=== PATIENT | female | born 1940 | race Caucasian/White ===

== ENCOUNTER → 2020-03-10 06:18 | Outpatient (CLI) | payer MEDICARE, OTHER, SELFPAY ==
[2020-02-15 09:51] VITALS: BMI 25.2
--- NOTE | 2020-03-10 12:13 | STRESSREP ---
Stress Test Report Pharmacologic myocardial perfusion stress test. 80-year-old lady with a history of chest pain. Stress protocol: Resting EKG demonstrates normal sinus rhythm with a rate of 77 bpm normal intervals are noted resting blood pressure is 138/62 mmHg. 0.4 mg of regadenoson was infused per usual protocol the maximum heart rate attained was 90 bpm which was 65% of maximum predicted heart rate the maximum workload was 1 metabolic equivalent. At rest there were no ST or T wave changes noted suggest ischemia at peak infusion nonspecific ST-T wave changes were noted. No clinical angina was noted. Myocardial perfusion protocol. 12.0 mCi of technetium 99m sestamibi was injected at rest. 0.4 mg of regadenoson was infused per usual protocol. At peak infusion 36.0 mCi of technetium 99m sestamibi was injected stress images were obtained stress and rest images were reconstructed and compared in the short axis vertical long horizontal long axis. Gated images were also obtained Perfusion SPECT analysis: Review of the stress images demonstrate normal uptake of tracer noted in all areas of the myocardium the resting images similar demonstrate normal uptake of tracer noted in all areas of the myocardium. No reversibility is noted suggest ischemia no previous infarct is noted. Gated SPECT analysis: The gated ejection fraction is 89%. Conclusion: Normal pharmacologic myocardial perfusion stress test. Preserved ejection fraction.
== END ==
PROVIDERS: PCP Family Medicine; Referring Provider Family Medicine; Visit Provider Family Medicine
DX: R06.00 Dyspnea, unspecified (principal)
CPT/HCPCS: 78452; 93017; A9500; A4216; J2785

== ENCOUNTER → 2020-05-25 08:52 | Outpatient (CLI) | payer MEDICARE, OTHER, SELFPAY ==
[2020-03-25 10:08] VITALS: BMI 21.5
--- NOTE | 2020-05-25 13:15 | PFT ---
INTRODUCTION: The patient is an 80-year-old female that presents for pulmonary function studies secondary to a diagnosis of dyspnea. Respiratory therapy reports good patient effort. Bronchodilators were used during testing. INTERPRETATION: Forced expiration spirometry demonstrates the presence of a severe large airways obstructive ventilatory defect. There was a significant response to aerosolized bronchodilators noted, based upon change in FVC. Spirograms are of fair quality and do not plateau indicating slow emptying of the lungs. Body plethysmography was performed and reveals lung volumes to be within normal limits. Diffusing capacity by single breath CO is reduced to 73% of predicted. IMPRESSION: Partially reversible severe large airways obstructive ventilatory defect with preserved lung volumes and mild reduction in diffusing capacity.
== END ==
PROVIDERS: PCP Family Medicine; Referring Provider Internal Medicine Critical Care Medicine; Visit Provider Internal Medicine Critical Care Medicine
DX: R06.00 Dyspnea, unspecified (principal)
CPT/HCPCS: 94060; 94726; 94729

== ENCOUNTER → 2020-05-27 10:23 | Outpatient (CLI) | payer MEDICARE, OTHER, SELFPAY ==
[2020-03-25 10:08] VITALS: BMI 21.5
[2020-05-27 11:14] VITALS: PULSE 65; PULSE 70; PULSE 77; PULSE 79; PULSE 81; PULSE 82; PULSE 86; PULSE 88; O2SAT 87; O2SAT 89; O2SAT 90; O2SAT 91; O2SAT 92; O2SAT 93
--- NOTE | 2020-05-27 11:19 | CPS ---
Patient walked the entire test on room air with no breaks. SpO2 87% at the end of testing. Spoke to patient about keeping SpO2>89-90% and the use of supplemental oxygen to keep SpO2>89%. She refused oxygen and stated that she will not wear it and does not want it.
--- NOTE | 2020-05-29 10:24 | PCM.PSN.6M ---
PSN 6 Minute Walk Test - 6 Minute Walk Test 6 Minute Walk Test: 6 Minute Walk Test PSN:6-Minute Walk Test Start: 05/27/20 10:49 Freq: Status: Active Protocol: [id number] Document 05/27/20 11:14 LENYJORGE (Rec: 05/27/20 11:22 SHANNAN [id number]) 6 Minute Walk Test Date Performed 05/27/20 Time Performed 10:30 Height 5 ft 2 in Weight: 115 lb Weight in Pounds 115.[address]: Alex Albrecht Assistive device used: None Pre-test Oxygen Delivery Method Room Air Pulse Ox (%) 92 Pulse Rate (60-100 beats/min) 65 Dyspnea Roque Scale (0-10) 0.5 Exertion Roque Scale (6-20) 6 1st minute Oxygen Delivery Method Room Air Pulse Ox (%) 93 Pulse Rate (60-100 beats/min) 77 2nd minute Oxygen Delivery Method Room Air Pulse Ox (%) 91 Pulse Rate (60-100 beats/min) 79 3rd minute Oxygen Delivery Method Room Air Pulse Ox (%) 90 Pulse Rate (60-100 beats/min) 81 4th minute Oxygen Delivery Method Room Air Pulse Ox (%) 89 Pulse Rate (60-100 beats/min) 82 5th minute Oxygen Delivery Method Room Air Pulse Ox (%) 89 Pulse Rate (60-100 beats/min) 86 6th minute Oxygen Delivery Method Room Air Pulse Ox (%) 87 Pulse Rate (60-100 beats/min) 88 Dyspnea Roque Scale (0-10) 0.5 Exertion Roque Scale (6-20) 12 Post-test Oxygen Delivery Method Room Air Pulse Ox (%) 92 Pulse Rate (60-100 beats/min) 70 Full Laps Walked 13 Partial Lap, Number of Tiles Walked 15 Total Distance Walked (ft) 782 05/27/20 11:19 Cardiopulmonary Services by Ernestina Nunes Patient walked the entire test on room air with no breaks. SpO2 87% at the end of testing. Spoke to patient about keeping SpO2>89-90% and the use of supplemental oxygen to keep SpO2>89%. She refused oxygen and stated that she will not wear it and does not want it. Initialized on 05/27/20 11:19 - END OF NOTE - Interpretation Interpretation: The patient ambulated 782 feet over the course of 6 minutes beginning on room air without assistive devices or breaks. Pretesting oxygen saturation was noted to be 92% on room air. With ambulation, the omar oxygen saturation was 87% at minute 6 of testing. However, the patient refused to allow the respiratory therapist to place her on supplemental oxygen. - Recommendations Recommendations: 2 L/min of supplemental oxygen should be utilized with exertion. However, the patient refused to allow the respiratory therapist to place any form of oxygen on her.
== END ==
PROVIDERS: PCP Family Medicine; Referring Provider Internal Medicine Critical Care Medicine; Visit Provider Internal Medicine Critical Care Medicine
DX: R06.00 Dyspnea, unspecified (principal)
CPT/HCPCS: 94618

== ENCOUNTER 2020-10-23 09:58 | Outpatient (RCR) | payer MEDICARE, OTHER, SELFPAY ==
[2020-07-28 07:41] VITALS: BMI 21.5
== END 2020-10-23 23:59 ==
LOC: IMMUN 09:58
PROVIDERS: PCP Family Medicine; Visit Provider Family Medicine
DX: Z23 Encounter for immunization (principal)
CPT/HCPCS: 0011A; 0012A; 91301

== ENCOUNTER 2021-03-14 09:01 | Inpatient (IN) | payer MEDICARE, OTHER, SELFPAY ==
[2020-11-23 12:49] VITALS: BMI 22.4
[2021-03-14] VITALS (11 sets, daily range): BP systolic 145–182; BP diastolic 62–72; PULSE 70–87; RESP 16–26; TEMP 36.8–37.1; O2SAT 91–99; BMI 21.5; BMI 21.0
--- NOTE | 2021-03-14 09:21 | CT_ITS ---
STUDY: CT ABDOMEN AND PELVIS WITH CONTRAST REASON FOR EXAM: Female, 81 years old. Localized peritonitis left side RADIATION DOSAGE (If Supplied By Facility): CTDIvol = ( 8.20 ) mGy, DLP = ( 283.90 ) mGycm TECHNIQUE: Transaxial images were obtained from the dome of the diaphragm to the symphysis pubis without oral contrast. IV 75mL Isovue-370 was administered. Sagittal and coronal images were reconstructed. Individualized dose optimization techniques were used for this CT. COMPARISON: None. FINDINGS: The visualized lung bases are unremarkable. The visualized portions of the heart are within normal limits. Normal liver. Normal gallbladder and extrahepatic biliary system. There is moderate splenomegaly. There is a 5 cm triangular area of decreased attenuation and enhancement within the inferior aspect of the spleen with some surrounding fluid fluid suggestive of a splenic infarct. Normal pancreas. Normal bilateral adrenal glands. Normal right kidney. Normal left kidney. Normal visualized stomach. Normal small intestine. Normal colon. There is non-visualization of the appendix. There is diffuse atherosclerotic calcification of the abdominal aorta, without a demonstrated aneurysm. Normal inferior vena cava. Normal retroperitoneum. Normal urinary bladder. Normal abdominal wall. Normal osseous structures. 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 Electronically Signed: Trent Vallejo MD at 11:47 EDT Tel , Service support ,
[2021-03-14] MEDS: 0.9% Normal Saline 1,000 ML 1000 ML IV (09:38)
[2021-03-14] MEDS: Morphine 4 MG/ML Syringe IV ×2 (09:38→17:53)
[2021-03-14] MEDS: Ondansetron 4 MG/2 ML Vial IV (09:38)
[2021-03-14 09:47] LABS: Absolute Lymphocyte Count 0.89 X10^3/uL (0.83-4.51); Absolute Neutrophil Count 8.9 X10^3/uL (2.0-7.7); Basophil# 0.06 X10^3/uL; Basophil% 0.5 % (0-1); Eosinophil# 0.01 X10^3/uL; Eosinophils% 0.1 % (0-5); Hematocrit 40.3 % (37-47); Hemoglobin 13.1 g/dL (12.0-15.0); Lymphocyte # 0.89 X10^3/ul (0.83-4.51); Mean Corp Hgb Conc 32.5 g/dL (32-36); Mean Corpuscular Hgb 28.9 pg (27.0-32.0); Mean Corpuscular Volume 88.8 fL (81-99); Mean Platelet Vol. 10.3 fl (6.2-12.0); Monocyte# 1.13 X10^3/uL; Monocyte% 10.2 % (0-10); NRBC Flagged by Analyzer 0 % (0-5); Neutrophil # 8.94 X10^3/uL (2.7-7.7); Neutrophil % 80.5 % (47-70); Platelet Count 147 K/mm3 (150-450); RBC Distribution Width CV 15.2 % (11.6-14.6); RBC Distribution Width SD 49.6 fl (35.1-43.9); Red Blood Count 4.54 M/mm3 (4.2-5.4); White Blood Count 11.1 K/mm3 (4.4-11.0)
[2021-03-14 10:07] LABS: ALB/GLOB Ratio 0.9 RATIO (0.9-2.4); AST(SGOT) 49 U/L (15-37); Alanine Aminotransfer ALT/SGPT 18 U/L (13-56); Albumin, Serum 3.4 g/dL (3.2-5.0); Alkaline Phosphatase 119 U/L (45-117); Anion Gap 9 (5-15); BUN 12 mg/dL (7-18); BUN/Creat Ratio 13.7 RATIO (10-20); Chloride 99 mmol/L (98-107); Creatinine, Serum 0.88 mg/dL (0.55-1.02); EST Glomerular Filtration Rate 66 mL/min (>60); Est Glom Filt Rate - Afr Amer 79 mL/min (>60); Estimated Creatinine Clearance 38.31 ml/min; Globulin 3.9 g/dL (2.2-4.2); Glucose 98 mg/dL (74-106); Lipase 55 U/L (73-393); Potassium 3.3 mmol/L (3.5-5.1); Protein, Total 7.3 g/dL (6.4-8.2); Sodium Level 137 mmol/L (136-145)
--- NOTE | 2021-03-14 10:28 | EDS_ITS ---
HPI HPI - GI History of Present Illness Chief Complaint: Abd Pain Informant: patient and family Abdominal Pain/Flank Pain Onset: Days (Onset Monday) Context: Sudden Onset Timing: Continuous Quality: Aching and Sharp Location: LUQ and LLQ Current Severity: Mild Maximum Severity: Severe Worsened by: Movement and - (Breathing, movement, walking) Relieved by: Nothing Nausea/Vomiting/Emesis GI Symptom: Positive for Nausea; Negative for Vomiting Onset: Yesterday Diarrhea/Melena/Hematochezia GI Symptom: Positive for Diarrhea (5 soft stools since midnight); Negative for Melena and Hematochezia Onset: Yesterday Stool Quality: Negative for Loose, Watery, Mucous, Black and Maroon Associated Symptoms Associated Symptoms: Positive for Dysuria and Frequency; Negative for Hematuria Narrative Narrative: Patient is an elderly woman who initially presented with left-sided chest pain. Patient has left-sided abdominal pain. She denies documented fever. She denies chills or night sweats. She does report nausea and several bowel movements. She did not note blood or mucus in the bowel movement. She has not been on antibiotics recently. There is no mucus in the stool. She has had no ill contacts. She denies history of diverticulitis. She does report urinary symptoms. She denies bright red blood per rectum. She denies prior symptoms. She denies headache, visual, ocular auditory symptoms. She denies cardiac respiratory symptoms. She denies history of VTE. She has no risk factors. She denies leg pain, swelling discoloration. Prior similar symptoms: No Recent Illness/Hospitalization: No [facility] Medical History (Updated 03/14/21 @ 14:[address] Polo Monroe MD) Arthritis Asthma Cancer Chronic neck and back pain Difficulty balancing Fatigue Hypertension Limb weakness Shortness of breath Thyroid disease Home Medications trazodone 50 mg PO QHS 11/04/15 [History Last Taken 11/03/15] amlodipine 5 mg tablet tab PO 02/15/20 [History Last Taken Unknown] furosemide 20 mg tablet PO 02/15/20 [History Last Taken Unknown] levothyroxine 50 mcg tablet tab PO 02/15/20 [History Last Taken Unknown] tizanidine 2 mg tablet 2 mg PO QHS PRN #14 tab 02/15/20 [Rx Last Taken Unknown] albuterol sulfate 90 mcg/actuation aerosol inhaler 1 - 2 puff INHALATION Q6H PRN #8.5 g 11/24/20 [Rx Last Taken Unknown] fluticasone 232 mcg-salmeterol 14 mcg/actuation breath activated powdr 1 inh INHALATION BID #1 ea 11/24/20 [Rx Last Taken Unknown] Allergy/AdvReac Type Severity Reaction Status Date / Time ibuprofen Allergy Mild rash Verified 03/14/21 09:03 lisinopril [From Prinivil] Allergy Mild cough/scrathy Verified 03/14/21 09:03 throat losartan [From Cozaar] Allergy Mild cough/scratchy Verified 03/14/21 09:03 throat moxifloxacin [From Avelox] Allergy Mild GI Upset Verified 03/14/21 09:03 Family History Mother Diabetes Father Myocardial infarction Surgical History No pertinent past surgical history Social History (Updated 03/14/21 @ 10:[address] Polo Monroe MD) household members: none Smoking Status: Never smoker alcohol intake: never substance use type: does not use ROS ROS ED Constitutional Constitutional ED: Denies chills, fever(s), subjective, sweats or weight loss ENT ENT ED: Denies ear pain, rhinorrhea or sore throat Cardiovascular Cardiovascular: Reports chest pain; Denies orthopnea, palpitations, paroxysmal nocturnal dyspnea or racing heartbeat Respiratory/Chest Respiratory/Chest: Denies cough, dyspnea, dyspnea on exertion, orthopnea or paroxysmal nocturnal dyspnea Gastrointestinal Gastrointestinal: Reports abdominal pain and nausea; Denies constipation, diarrhea, melena or vomiting Genitourinary Genitourinary ED: Reports dysuria, hematuria and urinary frequency Musculoskeletal Musculoskeletal: Denies arthralgias, back pain, myalgias or neck pain Integumentary Denies abscess or rash Neurologic Neurologic: Denies paresthesias or weakness Endocrine Endocrinology: Denies polydipsia, polyphagia or polyuria Hematologic/Lymphatic Hematologic/Lymphatic: Denies easy bleeding or easy bruising EXAM Physical Exam Const Vital Signs: 03/14/21 09:03 03/14/21 11:57 03/14/21 13:29 Temperature 98.2 F Temperature Source Temporal Pulse Rate 87 86 Respiratory Rate 19 H 16 Blood Pressure 145/70 H 157/71 H 171/71 H Blood Pressure Mean 95 99 104 Pulse Ox 91 97 Oxygen Delivery Method Room Air Nasal Cannula Oxygen Flow Rate (L/min) 3 Positive well nourished and well developed General Appearance ED: well developed; Negative for pallor HEENT Reports dry mucous membranes HEENT Narrative: Near patent. Posterior pharynx unremarkable. Mucosa is dry. normocephalic and atraumatic Mouth ED: Yes dry mucous membranes Mouth: dry mucous membranes Eyes PERRL and EOMs intact bilaterally General Eye ED: Negative for pale conjunctiva or scleral icterus Neck no lymphadenopathy, supple and no JVD Resp normal respiratory effort and clear to auscultation bilaterally Cardio regular rate, regular rhythm, S1 normal heart sound, S2 normal heart sound and no murmurs Rhythm: abnormal rhythm GI no masses; Negative for non-tender or non-distended GI Narrative: Patient has significant tenderness on the left side with rebound tenderness left lower quadrant. Inspection: abdominal distention Auscultation: hypoactive bowel sounds; Negative for normoactive bowel sounds or hyperactive bowel sounds Palpation: soft, tender, guarding and rebound tenderness present; Negative for hepatomegaly, splenomegaly, mass or pulsatile mass Back/Spine no CVA tenderness Lumbar Spine / Lower Back: Negative for lumbar spinal tenderness Extremity full ROM General Extremety ED: Negative for edema or tenderness General Extremity: Negative for edema Neuro CN's II-XII intact bilaterally and moves all extremities Sensorium / Orientation: alert and oriented to person Psych mental status grossly normal Skin no wounds General Skin Exam: Negative for jaundice or pallor Lesions: no lesions Rashes: no rashes MDM MDM MDM Narrative Medical decision making narrative: With significant left-sided abdominal pain need to evaluate for diverticulitis, perforation with abscess due to diverticulitis, pancreatitis atypical presentation for pyelonephritis. Appropriate blood work was ordered. CT of the abdomen with IV contrast was ordered. Patient was medicated with Zofran and morphine. Patient was informed of her results at 1200. She was informed because of her low oxygen level a CAT scan of her chest to evaluate for pulmonary embolus was ordered. Plan is to start on heparin for anticoagulation. She will need a work-up to determine if she has embolic phenomenon i.e. echo of her heart. CTA of the chest reveals an apical infiltrate. There is no evidence of pneumothorax or effusion. There is no evidence of pulmonary embolus per my read. Awaiting formal read by radiologist, 1323. Radiology agree there is no is a pulmonary embolus. There is abnormality right upper lobe which may represent infiltrate. Will treat with antibiotics. Blood cultures were not obtained since she does not have severe sepsis/organ dysfunction. Lab Data Attestation: I reviewed the patient's lab results. Lab results narrative: White count is slightly elevated and nondiagnostic. Comprehensive metabolic panel is unremarkable. CT of the abdomen pelvis IV contrast was reviewed by me and reveals splenomegaly with a significant infarct. Review of prior records indicates no history of paroxysmal atrial fibrillation. Will await formal read by radiologist, 10/02/2004 Labs: Laboratory Results - last 24 hr 03/14/21 03/14/21 03/14/21 09:30 09:30 09:30 WBC 11.1 H RBC 4.54 Hgb 13.1 Hct 40.3 MCV 88.8 MCH 28.9 MCHC 32.5 RDW Std Deviation 49.6 H RDW Coeff of Yaneli 15.2 H Plt Count 147 L MPV 10.3 Immature Gran % (Auto) 0.700 Neut % (Auto) 80.5 H Lymph % (Auto) 8.0 L [place] % (Auto) 10.2 H Eos % (Auto) 0.1 Baso % (Auto) 0.5 Absolute Neuts (auto) 8.9 H Absolute Lymphs (auto) 0.89 Nucleated RBC % 0 PT INR APTT Sodium 137 Potassium 3.3 L Chloride 99 Carbon Dioxide 29.0 Anion Gap 9 BUN 12 Creatinine 0.88 Estim Creat Clear Calc 38.31 Est GFR (MDRD) Af Amer 79 Est GFR (MDRD) Non-Af 66 BUN/Creatinine Ratio 13.7 Glucose 98 Lactic Acid 1.6 Calcium 9.0 Total Bilirubin 0.90 AST 49 H ALT 18 Alkaline Phosphatase 119 H Total Protein 7.3 Albumin 3.4 Globulin 3.9 Albumin/Globulin Ratio 0.9 Lipase 55 L 03/14/21 12:09 WBC RBC Hgb Hct MCV MCH MCHC RDW Std Deviation RDW Coeff of Yaneli Plt Count MPV Immature Gran % (Auto) Neut % (Auto) Lymph % (Auto) [place] % (Auto) Eos % (Auto) Baso % (Auto) Absolute Neuts (auto) Absolute Lymphs (auto) Nucleated RBC % PT 15.2 H INR 1.3 APTT 38.8 H Sodium Potassium Chloride Carbon Dioxide Anion Gap BUN Creatinine Estim Creat Clear Calc Est GFR (MDRD) Af Amer Est GFR (MDRD) Non-Af BUN/Creatinine Ratio Glucose Lactic Acid Calcium Total Bilirubin AST ALT Alkaline Phosphatase Total Protein Albumin Globulin Albumin/Globulin Ratio Lipase ABG Data ABG results: ABG 03/14/21 12:18 Specimen Type ART Sample Site L Radial pH 7.36 Bicarbonate Actual 27.5 H Total CO2 29 Base Excess 2 O2 Saturation 98 ABG pCO2 48.3 H ABG pO2 105 H Keagan Test Positive O2 Delivery Device Cannula Liter Flow 3.0 Radiography Diagnostic Testing: Radiology Impression Abdomen/Pelvis CT 03/14/21 09:21 IMPRESSION: 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 Electronically Signed: Trent Vallejo MD at 11:47 EDT Tel , Service support , Chest CTA 03/14/21 11:56 IMPRESSION: 1. No evidence of pulmonary embolus. 2. Soft tissue in the right apex which may represent scar however developing pneumonia cannot be excluded. There is a small left-sided effusion also present. Individualized dose optimization techniques were used for this CT. at 1423 Reported and signed by: Rhett Grijalva MD Electronically Signed: Rhett Grijalva MD at 14:22 EDT Tel , Service support , Critical Care Time Critical Care Time: Yes Critical care time (excluding procedures): 30-74 minutes (37 minutes), Including time spent: (History, physical examination, documentation, review of prior records, independent review of images and initiation of therapy), Discussing w/Patient &/or Family/[employer] Manager and Discussing w/Consultants Discharge Plan Dx/Rx/DC Orders Clinical Impression: Right upper lobe pulmonary infiltrate, Infarction of spleen, Hypoxia Disposition Disposition: Acute Care [facility]
[2021-03-14 11:17] LABS: Lactic Acid 1.6 mmol/L (0.4-1.9)
--- NOTE | 2021-03-14 11:56 | CT_ITS ---
EXAM: CT ANGIOGRAPHY CHEST WITHOUT AND WITH INTRAVENOUS CONTRAST : 1940 CLINICAL INDICATION: PE suspected TECHNIQUE: Helically acquired angiography images were obtained of the chest without and with intravenous contrast. This CT exam was performed using one or more of the following dose reduction techniques: automated exposure control, adjustment of the mA and/or kV according to patient size, and/or use of iterative reconstruction technique. This report was created using [employer] report generation technology. MIP reconstructed images were created and reviewed. CONTRAST: IV 75mL Isovue-370 COMPARISON: None. FINDINGS: PULMONARY ARTERIES: Unremarkable. Normal in caliber. No evidence of pulmonary embolism. AORTA: Unremarkable. Normal in caliber. No evidence of dissection. GREAT VESSELS OF AORTIC ARCH: Unremarkable. Normal in caliber. No evidence of dissection. LUNGS AND PLEURAL SPACES: There is soft tissue the right apex is and pleural scar however developing pneumonia cannot be excluded. There is a small left-sided effusion with minimal left basilar atelectasis. No mass. HEART: Unremarkable. Heart size is normal. No pericardial effusion. No signs of right heart strain. MEDIASTINUM: Unremarkable. No mediastinal or hilar adenopathy. Esophagus is unremarkable. No hiatal hernia. THYROID: Unremarkable. No thyroid lesions. BONES/JOINTS: Unremarkable. No suspicious lytic or blastic abnormality. CT/CTA Chest W/WO Contrast IMPRESSION: 1. No evidence of pulmonary embolus. 2. Soft tissue in the right apex which may represent scar however developing pneumonia cannot be excluded. There is a small left-sided effusion also present. Individualized dose optimization techniques were used for this CT. at 1423 Reported and signed by: Rhett Grijalva MD Electronically Signed: Rhett Grijalva MD at 14:22 EDT Tel , Service support ,
--- NOTE | 2021-03-14 11:57 | ED.RN ---
pt sats 84% on ra with good wave form. nail st helenian removedplaced on 3l o2. pt reports sharp pain under left breast dr zamorano aware. new orders placed
[2021-03-14 12:26] LABS: Allen Test Positive; Base Excess 2 mmol/L (-2 to +2); Bicarbonate 27.5 mmol/L (22-26); Blood Gas Specimen Type ART; O2 Delivery Device Cannula; PO2 105 mmHG (75-100); SITE L Radial; SO2 98 % (95-99); Total Carbon Dioxide 29 mmol/L; pCO2 48.3 mmHg (35-45); pH 7.36 (7.35-7.45)
[2021-03-14] MEDS: Heparin Injection (Vial) 5,000 UNIT/ML VIAL 4000 UNIT IV (12:37)
[2021-03-14] MEDS: HEPARIN/D5w 25,000 UNITS 25,000 UNITS/250 ML IV.SOLN. 8 UNITS IV (12:41)
[2021-03-14 12:43] LABS: International Normalized Ratio 1.3; Prothrombin Time (Protime)PT. 15.2 SECONDS (11.7-14.9)
[2021-03-14 12:45] LABS: Partial Thromboplast Time 38.8 Seconds (24.1-36.2)
--- NOTE | 2021-03-14 17:16 | PCM.HP.STD ---
HPI - General General Date of Admission: 03/14/21 HPI Narrative BARBER WEBB, is a 81 F who presented to the emergency department [facility] on 03/14/2021 complaining of left upper quadrant pain that started on Monday. She denied any other associated symptoms. She had has no sick contacts. She has a cough but this is chronic and is nonproductive. She is fully vaccinated for COVID-19. She reports that the pain has been worsening since Monday and that is why she presented to the emergency department. She was sent by the emergency room physician for CT of her abdomen pelvis with contrast and developed acute hypoxia with an oxygen saturation of 91% on room air and therefore a CTA of her chest was performed. Upon review of her SPO 2 from previous admissions her oxygen saturations do run on the low side and are noted to be intermittently in the low 90s on room air. Upon questioning the patient she has been told in the past that she should wear oxygen at home but has deferred as she feels like her inhalers have helped her. She follows with Dr. Albrecht as an outpatient for pulmonary services. She is also had lymphoma and has a chronic right upper lobe infiltrate/mass/scarring. This was biopsied twice in the past and she was found to have recurrent lymphoma and was reinitiated on Rituxan from [id number]. She follows with Dr. Ferrera in the outpatient setting for her lymphoma. The CTA of her chest was unremarkable for PE but did again demonstrate a right upper lobe abnormality. The CTA of her abdomen showed no vascular abnormalities but did show a 5 cm splenic infarct. I suspect this is what has been causing her pain. She was treated in the emergency department for pneumonia with ceftriaxone and azithromycin given the right upper lobe abnormality, but has no other symptoms and therefore will defer further treatment for pneumonia at this point. Her CBC was overall unremarkable other than some mild thrombocytopenia and leukocytosis with a white count of 11.1. I suspect this is a stress reaction. An ABG was performed and showed no significant abnormalities and her PO2 was 105 on 3 L nasal cannula. Her CMP showed mild hypokalemia with a potassium of 3.3 but was otherwise fairly unremarkable. She was admitted and monitored on telemetry given her splenic infarct to rule out cardiac arrhythmia such as atrial fibrillation as a cause for her splenic infarct and will perform an echocardiogram. 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 Radiation adverse effect Shortness of breath Thyroid disease Home Medications trazodone 50 mg PO QHS 11/04/15 [History Last Taken 11/03/15] amlodipine 5 mg tablet 5 tab PO DAILY 02/15/20 [History Last Taken 03/14/21] furosemide 20 mg tablet PO DAILY 02/15/20 [History Last Taken 03/13/21] levothyroxine 50 mcg tablet 50 mcg PO DAILY 02/15/20 [History Last Taken 03/14/21] tizanidine 2 mg tablet 2 mg PO QHS PRN #14 tab 02/15/20 [Rx Last Taken Unknown] fluticasone propion-salmeterol [AirDuo RespiClick] 1 inh INHALATION BID 03/14/21 [History Last Taken 03/14/21] Allergy/AdvReac Type Severity Reaction Status Date / Time ibuprofen Allergy Mild rash Verified 03/14/21 09:03 lisinopril [From Prinivil] Allergy Mild cough/scrathy Verified 03/14/21 09:03 throat losartan [From Cozaar] Allergy Mild cough/scratchy Verified 03/14/21 09:03 throat moxifloxacin [From Avelox] Allergy Mild GI Upset Verified 03/14/21 09:03 Family History Mother Diabetes Father Myocardial infarction Surgical History No pertinent past surgical history Social History household members: none Smoking Status: Never smoker alcohol intake: never substance use type: does not use ROS Review of Systems ROS Unobtainable: Denies due to encephalopathy, due to endotracheal tube, due to mental condition, due to mental status or other Constitutional Constitutional: Denies anorexia, change in weight, chills, fatigue, fever(s), malaise, night sweats, weakness or other Eyes Eyes: Denies blurry vision, change in eye color, change in vision, discharge from eye(s), double vision, erythema, eye pain, loss of vision or other ENT HEENT: Denies abnormal hearing, dysphagia, ear pain, epistaxis, headache(s), hearing loss, nasal congestion, nasal discharge, post nasal drip, sinus pressure, sore throat or other Cardiovascular Cardiovascular: Denies chest pain, claudication, dyspnea on exertion, edema, lightheadedness, orthopnea, palpitations, paroxysmal nocturnal dyspnea, rapid heart rate, syncope or other Respiratory/Chest Respiratory/Chest: Reports cough and other Details: Cough is chronic and unchanged ; Denies dyspnea, excessive phlegm production, hemoptysis, productive cough, shortness of breath at rest, shortness of breath with exertion or wheezing Gastrointestinal Gastrointestinal: Reports abdominal pain and other Details: Left upper quadrant pain ; Denies coffee ground emesis, constipation, diarrhea, dyspepsia, hematemesis, hematochezia, loose stools, melena, nausea or vomiting Genitourinary Genitourinary: Denies burning urination, difficulty urinating, dysuria, hematuria, nocturia, urinary frequency, urinary hesitancy, urinary incontinence, urinary urgency or other Musculoskeletal Musculoskeletal: Denies arthralgias, back pain, joint pain, joint stiffness, joint swelling, myalgias, neck pain or other Neurologic Neurologic: Denies abnormal gait, abnormal speech, confusion, disequilibrium, dizziness, focal weakness, headache(s), numbness, paresthesias, seizure-like activity, seizures, syncope, tingling, tremor(s) or other Psychiatric Psychiatric: Denies anxiety, depression, homicidal ideation, suicidal ideation or other Endocrine Endocrinology: Denies change in body appearance, cold intolerance, excessive sweating, heat intolerance, polydipsia, polyuria or other Hematologic/Lymphatic Hematologic/Lymphatic: Reports other Details: History of lymphoma ; Denies anemia, easy bleeding, easy bruising or lymphadenopathy Allergic/Immunologic Allergic/Immunologic: Denies rhinitis, hives, eczemia, asthma or other Vital Signs Vital Signs Vital Signs: 03/14/21 09:03 03/14/21 11:57 03/14/21 13:29 Temperature 98.2 F Temperature Source Temporal Pulse Rate 87 86 Respiratory Rate 19 H 16 Blood Pressure 145/70 H 157/71 H 171/71 H Blood Pressure Mean 95 99 104 Blood Pressure Source Blood Pressure Position Blood Pressure Location Pulse Ox 91 97 Oxygen Delivery Method Room Air Nasal Cannula Oxygen Flow Rate (L/min) 3 03/14/21 15:03 03/14/21 15:19 03/14/21 16:50 Temperature 98.7 F 98.2 F Temperature Source Temporal Oral Pulse Rate 79 76 83 Respiratory Rate 26 H 19 H 18 Blood Pressure 182/72 H 182/72 H 153/62 H Blood Pressure Mean 108 108 92 Blood Pressure Source Monitor Blood Pressure Position Semi-Fowlers Blood Pressure Location Right Arm Pulse Ox 98 99 96 Oxygen Delivery Method Nasal Cannula Nasal Cannula Nasal Cannula Oxygen Flow Rate (L/min) 2 2 2 Weight Weight: 53.977 kg Body Mass Index (BMI) 21.0 Physical Exam Const alert, oriented x3, no apparent distress and average body habitus Constitutional Narrative: Elderly white female who's appears younger than stated age, sitting up in bed, currently appears fairly comfortable, daughter is at bedside General Appearance: cooperative HEENT normocephalic, head/scalp atraumatic, moist oral mucous membranes and oropharynx normal HEENT Narrative: Mallampati 2, no thrush, SENECA Mouth: oral and palatal mucosa normal Eyes PERRL, EOMs intact bilaterally and conjunctivae normal Neck no lymphadenopathy, supple, no JVD and no carotid bruits Resp normal respiratory effort, no retractions, no use of accessory muscles and clear to auscultation bilaterally Resp Narrative: Diffusely diminished but clear Auscultation: crackles, rales, rhonchi and wheezes Cardio regular rate, regular rhythm, S1 normal heart sound, S2 normal heart sound, no murmurs, no rub, no gallops, no clicks and no JVD GI normal to inspection, nondistended, normoactive bowel sounds, soft to palpation and non-distended; Negative for hepatosplenomegaly Auscultation: Negative for hyperactive bowel sounds or hypoactive bowel sounds Palpation: tender LUQ; Negative for guarding or hernia Extremity normal to inspection, full ROM and no clubbing, cyanosis or edema Peripheral Pulses: Yes pulses 2+ throughout Skin no rashes or lesions noted, no wounds, skin turgor normal, no jaundice, no petechiae and no mottling Neuro oriented x3, CN's II-XII intact bilaterally, moves all extremities and no focal motor deficits Sensorium / Orientation: awake, alert, oriented to person, oriented to place and oriented to time Speech: speech normal Psych affect normal Mood & Affect: Negative for depressed or anxious Results Lab / Micro Data Result Diagrams: 03/14/21 09:30 03/14/21 09:30 Labs: Laboratory Results - last 24 hr 03/14/21 03/14/21 03/14/21 09:30 09:30 09:30 WBC 11.1 H RBC 4.54 Hgb 13.1 Hct 40.3 MCV 88.8 MCH 28.9 MCHC 32.5 RDW Std Deviation 49.6 H RDW Coeff of Yaneli 15.2 H Plt Count 147 L MPV 10.3 Immature Gran % (Auto) 0.700 Neut % (Auto) 80.5 H Lymph % (Auto) 8.0 L Jenkins % (Auto) 10.2 H Eos % (Auto) 0.1 Baso % (Auto) 0.5 Absolute Neuts (auto) 8.9 H Absolute Lymphs (auto) 0.89 Nucleated RBC % 0 PT INR APTT Sodium 137 Potassium 3.3 L Chloride 99 Carbon Dioxide 29.0 Anion Gap 9 BUN 12 Creatinine 0.88 Estim Creat Clear Calc 38.31 Est GFR (MDRD) Af Amer 79 Est GFR (MDRD) Non-Af 66 BUN/Creatinine Ratio 13.7 Glucose 98 Lactic Acid 1.6 Calcium 9.0 Total Bilirubin 0.90 AST 49 H ALT 18 Alkaline Phosphatase 119 H Total Protein 7.3 Albumin 3.4 Globulin 3.9 Albumin/Globulin Ratio 0.9 Lipase 55 L 03/14/21 12:09 WBC RBC Hgb Hct MCV MCH MCHC RDW Std Deviation RDW Coeff of Yaneli Plt Count MPV Immature Gran % (Auto) Neut % (Auto) Lymph % (Auto) Jenkins % (Auto) Eos % (Auto) Baso % (Auto) Absolute Neuts (auto) Absolute Lymphs (auto) Nucleated RBC % PT 15.2 H INR 1.3 APTT 38.8 H Sodium Potassium Chloride Carbon Dioxide Anion Gap BUN Creatinine Estim Creat Clear Calc Est GFR (MDRD) Af Amer Est GFR (MDRD) Non-Af BUN/Creatinine Ratio Glucose Lactic Acid Calcium Total Bilirubin AST ALT Alkaline Phosphatase Total Protein Albumin Globulin Albumin/Globulin Ratio Lipase Micro: Microbiology 03/14/21 15:30 SARS-CoV-2 Antigen (Rapid) - Final Mucosa - Nasopharyngeal ABG Data ABG results: ABG 03/14/21 12:18 Specimen Type ART Sample Site L Radial pH 7.36 Bicarbonate Actual 27.5 H Total CO2 29 Base Excess 2 O2 Saturation 98 ABG pCO2 48.3 H ABG pO2 105 H Keagan Test Positive O2 Delivery Device Cannula Liter Flow 3.0 Radiology Impression Abdomen/Pelvis CT 03/14/21 09:21 IMPRESSION: 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 Electronically Signed: Trent Vallejo MD at 11:47 EDT Tel , Service support , Chest CTA 03/14/21 11:56 IMPRESSION: 1. No evidence of pulmonary embolus. 2. Soft tissue in the right apex which may represent scar however developing pneumonia cannot be excluded. There is a small left-sided effusion also present. Individualized dose optimization techniques were used for this CT. at 1423 Reported and signed by: Rhett Grijalva MD Electronically Signed: Rhett Grijalva MD at 14:22 EDT Tel , Service support , Assessment & Plan Assessment/Plan (1) Hypoxia: (2) Infarction of spleen: (3) Abnormal chest CT: (4) Asthma: QUALIFIERS: Asthma severity: moderate Asthma persistence: persistent Asthma complication type: uncomplicated Qualified Code(s): J45.40 - Moderate persistent asthma, uncomplicated (5) Chronic respiratory failure with hypoxia: (6) Hypokalemia: PLAN: Right upper lobe scarring versus infiltrate -Extensive review of records reveals patient has had an ongoing right upper lobe mass/fibrosis -Biopsy revealed this was consistent with marginal zone lymphoma -Has had a history of right axillary radiation related to her lymphoma history -With no fever, new cough, or sputum production I highly doubt this is a pneumonia -Ceftriaxone given in the emergency department but I will not continue antibiotics at this time 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 -Patient has abnormal PFTs -Continue inhalers -Per discussion with patient she has been instructed to wear oxygen in the past but has been resistant to this -States that the inhalers had helped significantly -Continue 1 L nasal cannula--> SPO2 at rest was 95% -Wean as able -CTA was performed and shows no pulmonary emboli Acute splenic infarct -Suspect this is what is causing her abdominal pain given location -Etiology of this is unclear at this time -CTA of the chest abdomen and pelvis showed no thrombosis arterial or venous -CT shows that size was 5 cm -Pain should resolve in 7 to 10 days -Patient would like to discuss this with Dr. Arambula--> consult placed -Highly doubtful patient would require any surgical intervention -Monitor on telemetry for atrial fibrillation -Check echocardiogram -Consider event monitor as an outpatient if inpatient telemetry reveals no arrhythmia Hypokalemia -P.o. potassium 40 mEq given -Recheck in a.m. -Magnesium level in a.m. History of marginal zone lymphoma stage II -Follows with Dr. Gonzalez -Patient has been treated with radiation and Rituxan -Diagnosed in 2004 Hypertension -Continue amlodipine 5 mg daily -Continue furosemide 20 mg daily Hypothyroidism -Continue levothyroxine Insomnia -Continue trazodone nightly DVT prophylaxis -Lovenox 40 mg daily CODE STATUS -Full code Charges/Coding Visit Charges Inpatient E&M: 37734 Init Hosp L3
[2021-03-14] MEDS: Potassium Chloride Oral Tablet 20 MEQ 40 MEQ PO (18:47)
[2021-03-14 19:41] LABS: Partial Thromboplast Time 168.6 Seconds (24.1-36.2)
[2021-03-15] VITALS (10 sets, daily range): BP systolic 131–157; BP diastolic 61–66; PULSE 64–82; RESP 16–20; TEMP 36.5–37; O2SAT 95–98
[2021-03-15 03:54] LABS: Partial Thromboplast Time 77.3 Seconds (24.1-36.2)
[2021-03-15] MEDS: Acetaminophen 325 MG Tablet 650 MG PO ×3 (05:31→19:48)
[2021-03-15] MEDS: Levothyroxine 50 MCG Tablet PO (05:31)
[2021-03-15] MEDS: Albuterol 2.5 MG/3 ML VIAL.NEB. INHALATION ×2 (07:20→19:50)
[2021-03-15] MEDS: Budesonide Respules 0.5 MG/2 ML AMPUL.NEB. INHALATION ×2 (07:20→19:51)
--- NOTE | 2021-03-15 08:40 | ECHOD_ITS ---
Reason For Study: Chest Pain Procedure This was a 2D Doppler, Color Flow transthoracic echocardiogram. Exam performed portable in patient room. Left Ventricle Normal LV size. Moderate eccentric left ventricular hypertrophy. The estimated ejection fraction is 60 %. Left ventricular systolic function is normal. No regional wall motion abnormalities noted. Right Ventricle Normal RV size. Normal systolic function. Atria Normal left atrium. Normal right atrium. Mitral Valve Normal mitral valve. Mild (1+) eccentric mitral valve insufficiency. Tricuspid Valve Normal tricuspid valve. Mild (1+) tricuspid valve insufficiency. Pulmonary artery systolic pressure is 46 mmHg. Aortic Valve Normal aortic valve. Trisinus/trileaflet aortic valve. Pulmonic Valve Normal pulmonic valve. Great Vessels Normal aortic root. The pulmonary artery is normal size. Normal inferior vena cava. Pericardium/Pleural No pericardial effusion. MMode/2D Measurements & Calculations LVIDd: 3.4 cm IVSd: 1.7 cm Ao root diam: 2.7 cm LVIDs: 2.0 cm LVPWd: 1.1 cm RVDd: 3.2 cm FS: 41.6 % LAV(MOD-bp): 30.9 ml LVAd ap4: 16.6 cm2 SV(MOD-sp4): 24.9 ml LAV(MOD-bp) Indexed: 19.9 ml/m2 LVLd ap4: 5.8 cm LAV(MOD-sp2): 34.5 ml EDV(MOD-sp4): 39.7 ml LAV(MOD-sp4): 22.6 ml EDV(sp4-el): 40.1 ml LVAs ap4: 9.2 cm2 LVLs ap4: 5.1 cm ESV(MOD-sp4): 14.8 ml ESV(sp4-el): 14.1 ml EF(MOD-sp4): 62.8 % EF(sp4-el): 64.9 % SV(sp4-el): 26.0 ml LA A4 area: 11.1 cm2 LA dimension(2D): 3.2 cm RA A4 area: 10.7 cm2 Doppler Measurements & Calculations MV E max naun: 141.8 cm/sec Lat Peak E' Naun: 6.1 cm/sec Med Peak E' Naun: 5.5 cm/sec MV A max naun: 132.1 cm/sec E/E' lat: 23.1 E/E' med: 25.9 MV E/A: 1.1 Ao V2 max: 172.6 cm/sec LV V1 max: 126.7 cm/sec PA V2 max: 86.3 cm/sec Ao max P.9 mmHg LV V1 max P.4 mmHg Ao V2 mean: 116.5 cm/sec Ao mean P.1 mmHg Ao V2 VTI: 35.2 cm TR max naun: 320.7 cm/sec TR max P.1 mmHg ECHO/Echo Complete Interpretation Summary Normal LV size. Moderate eccentric left ventricular hypertrophy. The estimated ejection fraction is 60 %. Left ventricular systolic function is normal. Pulmonary artery systolic pressure is 46 mmHg. Mild (1+) eccentric mitral valve insufficiency. Ordering Physician: Stephen Pedersen Referring Physician: Jose Grayson Performed By: Yin King, RUDY, RVT
--- NOTE | 2021-03-15 09:32 | PN.HOSP_ITS ---
Subjective Subjective Patient denies history of coronary artery disease, A. fib. 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 Sinus rhythm. Denies prior history of arterial or venous thromboembolism. Admitted with sudden onset of left lower and upper abdominal chest pain. Diagnosed 5 cm splenic infarct. Objective Data Objective Data Vital Signs: Vital Signs Temp Pulse Resp BP Pulse Ox 98.0 F 68 20 H 131/63 H 96 03/15/21 08:09 03/15/21 08:09 03/15/21 08:09 03/15/21 08:09 03/15/21 08:09 Oxygen Flow Rate (L/min) 2 Oxygen Delivery Method Nasal Cannula Weight: 119 lb Body Mass Index (BMI) 21.0 Intake & Output: Intake and Output for Last 24 Hours 03/13/21 03/14/21 03/15/21 23:59 23:59 23:59 Intake Total 1362.07 / 1362.07 Output Total 300 / 300 400 / 400 Balance 1062.07 / 1062.07 -400 / -400 Lab / Micro Data Result Diagrams: 03/15/21 09:28 03/15/21 09:28 Labs: Laboratory Results - last 24 hr 03/14/21 03/14/21 03/14/21 09:30 09:30 09:30 WBC 11.1 H RBC 4.54 Hgb 13.1 Hct 40.3 MCV 88.8 MCH 28.9 MCHC 32.5 RDW Std Deviation 49.6 H RDW Coeff of Yaneli 15.2 H Plt Count 147 L MPV 10.3 Immature Gran % (Auto) 0.700 Neut % (Auto) 80.5 H Lymph % (Auto) 8.0 L Maverick % (Auto) 10.2 H Eos % (Auto) 0.1 Baso % (Auto) 0.5 Absolute Neuts (auto) 8.9 H Absolute Lymphs (auto) 0.89 Nucleated RBC % 0 PT INR APTT Sodium 137 Potassium 3.3 L Chloride 99 Carbon Dioxide 29.0 Anion Gap 9 BUN 12 Creatinine 0.88 Estim Creat Clear Calc 38.31 Est GFR (MDRD) Af Amer 79 Est GFR (MDRD) Non-Af 66 BUN/Creatinine Ratio 13.7 Glucose 98 Lactic Acid 1.6 Calcium 9.0 Total Bilirubin 0.90 AST 49 H ALT 18 Alkaline Phosphatase 119 H Total Protein 7.3 Albumin 3.4 Globulin 3.9 Albumin/Globulin Ratio 0.9 Lipase 55 L 03/14/21 03/14/21 03/15/21 12:09 18:53 03:38 WBC RBC Hgb Hct MCV MCH MCHC RDW Std Deviation RDW Coeff of Yaneli Plt Count MPV Immature Gran % (Auto) Neut % (Auto) Lymph % (Auto) Maverick % (Auto) Eos % (Auto) Baso % (Auto) Absolute Neuts (auto) Absolute Lymphs (auto) Nucleated RBC % PT 15.2 H INR 1.3 APTT 38.8 H 168.6 H* 77.3 H Sodium Potassium Chloride Carbon Dioxide Anion Gap BUN Creatinine Estim Creat Clear Calc Est GFR (MDRD) Af Amer Est GFR (MDRD) Non-Af BUN/Creatinine Ratio Glucose Lactic Acid Calcium Total Bilirubin AST ALT Alkaline Phosphatase Total Protein Albumin Globulin Albumin/Globulin Ratio Lipase Micro: Microbiology 03/14/21 15:30 Mucosa - Nasopharyngeal SARS-CoV-2 Antigen (Rapid) - Final ABG Data ABG results: ABG 03/14/21 12:18 Specimen Type ART Sample Site L Radial pH 7.36 Bicarbonate Actual 27.5 H Total CO2 29 Base Excess 2 O2 Saturation 98 ABG pCO2 48.3 H ABG pO2 105 H Keagan Test Positive O2 Delivery Device Cannula Liter Flow 3.0 Radiography Diagnostic Testing: Radiology Impression Abdomen/Pelvis CT 03/14/21 09:21 IMPRESSION: 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 Electronically Signed: Trent Vallejo MD at 11:47 EDT Tel , Service support , Chest CTA 03/14/21 11:56 IMPRESSION: 1. No evidence of pulmonary embolus. 2. Soft tissue in the right apex which may represent scar however developing pneumonia cannot be excluded. There is a small left-sided effusion also present. Individualized dose optimization techniques were used for this CT. at 1423 Reported and signed by: Rhett Grijalva MD Electronically Signed: Rhett Grijalva MD at 14:22 EDT Tel , Service support , Physical Exam Narrative General: Alert, Oriented x3, Cooperative HEENT: Atraumatic, PERRLA, EOMI, Normocephalic Oral: No Gingival or Mucosal Lesions/ Ulcerations Neck: Supple, No JVD, Negative Carotid Bruits Lungs: Air entry diminished in bilateral lung bases. No crepitation/rhonchi Cardiovascular: Irregular rhythm due to frequent PVCs. Normal S1, Normal S2, No murmurs Abdomen: Bowel Sounds Present, Soft, tenderness present over left upper quadrant. Spleen could not be palpated because of tenderness. Non-Distended : No renal angle tenderness. No suprapubic tenderness. Extremities: No edema, Capillary Refill Less than 3 Seconds Skin: No rashes, No breakdown Musculoskeletal: No Tenderness to Palpation of Joints or Extremities Neurological: Cranial nerves II-XII grossly intact, Deep Tendon Reflexes 2+/4 and Symmetrical, Neuro grossly intact Psych/Mental Status: Normal Affect, Appropriate. Assessment & Plan Assessment/Plan (1) Infarction of spleen: PLAN: This 81-year-old female was admitted for left lower chest pain along with left upper abdominal pain associated with nausea and several bowel movements. No GI bleed. Acute splenic infarct: CT abdomen showed 5 cm splenic infarct with moderate splenomegaly with a small amount of free fluid. Patient on IV heparin drip. Patient has pain and tenderness. Requested to see Dr. Eleazar Arambula. Consult requested. Patient denies history of coronary artery disease, A. fib or CHF. 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 Right upper lobe scarring versus infiltrate: Patient has history of marginal zone lymphoma stage II on biopsy in 2004 after patient had right upper lobe mass /fibrosis. Patient has been treated with radiation and Rituxan. Patient follows Dr. Albrecht and Dr. Gonzalez. Currently patient does not have cough or fever or sputum production symptoms of pneumonia. Chronic hypoxic respiratory failure secondary to asthma/radiation fibrosis -Patient has abnormal PFTs. Continue inhalers. Oxygen therapy to keep pulse ox more than 90%. -Continue inhalers -CTA was performed and shows no pulmonary emboli Other comorbidities include hypertension, hypothyroidism, insomnia: Patient on amlodipine, furosemide 20 mg daily and levothyroxine and trazodone. DVT prophylaxis -Lovenox 40 mg daily CODE STATUS -Full code Clinical Impression(s) from Imaging Studies Abdomen/Pelvis CT 03/14/21 09:21 IMPRESSION: 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 Chest CTA 03/14/21 11:56 IMPRESSION: 1. No evidence of pulmonary embolus. 2. Soft tissue in the right apex which may represent scar however developing pneumonia cannot be excluded. There is a small left-sided effusion also present. Individualized dose optimization techniques were used for this CT. Charges/Coding Visit Charges Inpatient E&M: 84429 Subs Hosp L2
[2021-03-15 09:37] LABS: Absolute Lymphocyte Count 0.93 X10^3/uL (0.83-4.51); Absolute Neutrophil Count 5.2 X10^3/uL (2.0-7.7); Basophil# 0.04 X10^3/uL; Basophil% 0.6 % (0-1); Eosinophil# 0.05 X10^3/uL; Eosinophils% 0.7 % (0-5); Hematocrit 35.1 % (37-47); Hemoglobin 11.3 g/dL (12.0-15.0); Lymphocyte # 0.93 X10^3/ul (0.83-4.51); Lymphocyte % 13.4 % (19-41); Mean Corp Hgb Conc 32.2 g/dL (32-36); Mean Corpuscular Hgb 29.1 pg (27.0-32.0); Mean Corpuscular Volume 90.5 fL (81-99); Mean Platelet Vol. 9.7 fl (6.2-12.0); Monocyte# 0.68 X10^3/uL; Monocyte% 9.8 % (0-10); NRBC Flagged by Analyzer 0 % (0-5); Neutrophil # 5.17 X10^3/uL (2.7-7.7); Neutrophil % 74.8 % (47-70); Platelet Count 143 K/mm3 (150-450); RBC Distribution Width CV 15.2 % (11.6-14.6); RBC Distribution Width SD 50.1 fl (35.1-43.9); Red Blood Count 3.88 M/mm3 (4.2-5.4); White Blood Count 6.9 K/mm3 (4.4-11.0)
[2021-03-15 09:48] LABS: Partial Thromboplast Time 70.3 Seconds (24.1-36.2)
[2021-03-15 09:52] LABS: Anion Gap 7 (5-15); BUN 11 mg/dL (7-18); BUN/Creat Ratio 13.4 RATIO (10-20); Calcium,Total 8.4 mg/dL (8.5-10.1); Chloride 102 mmol/L (98-107); Creatinine, Serum 0.82 mg/dL (0.55-1.02); EST Glomerular Filtration Rate 71 mL/min (>60); Est Glom Filt Rate - Afr Amer 86 mL/min (>60); Glucose 151 mg/dL (74-106); Magnesium 2.1 mg/dL (1.6-2.6); Potassium 3.5 mmol/L (3.5-5.1); Sodium Level 139 mmol/L (136-145)
[2021-03-15] MEDS: Furosemide 20 MG Tablet PO (10:36)
[2021-03-15] MEDS: amLODIPine 5 MG Tablet PO (10:36)
--- NOTE | 2021-03-15 10:55 | CASEMGMT ---
RN IGLESIA Face to Face with patient for initial transition planning/care coordination assessment. RN CM introduced self and role at [facility]. Patient sitting in chair, alert and oriented, daughter at bedside. Patient willing to participate in assessment and is able to answer all questions appropriately. Care providers, pharmacy, and demographics verified. Patient wishes to discharge home, denies need for home health at this time. Patient states she has no further needs or concerns at this time. CM to follow for discharge planning needs that may arise. 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 Prescription Benefit: yes Living Will/HPOA: yes, Derrick Adams LNOK: , daughter Living Arrangements: Patient lives with in a single story condo with 1 step to enter. Patient states she is independent at home. Transportation: , daughter DME/HHC: Patient states she has grab bars at home. Patient currently on oxygen will monitor for home oxygen. Patient states she is not going to wear oxygen at home. Patient denies previous HHC or SNF Disposition Plan: Patient to discharge home with family support and follow-up plans in place. [place] TRUJILLO, RN, CM
--- NOTE | 2021-03-15 11:02 | NURSING ---
This nurse is aware of PTT of 70.3 at 0938. Per protocol, this is the second time PTT is been at a therapeutic level, therefore, PTT will be drawn tomorrow morning.
--- NOTE | 2021-03-15 13:51 | NURSING ---
Echo in progress in room. Pt painful. Tylenol just given. Will monitor.
--- NOTE | 2021-03-15 18:04 | CON.PCM.SX_ITS ---
Assessment & Plan Assessment/Plan (1) Abnormal chest CT: (2) Infarction of spleen: PLAN: I believe this patient is experiencing an acute embolic event to her spine causing this infarct. I do have concerns that there is a moderate amount of stranding around the spleen I believe that this is the cause of her discomfor t. I have spoken with the radiologist he believes the colon looks normal and the information is not coming from the colon secondary to colitis the colon itself does not look normal. She has had a normal echocardiogram she currently is not in A. fib it is difficult to ascertain exactly where the embolic event came from. At some point I think we will have to get her off her anticoagulation. Reason for this is if she develops into splenic abscess this is probably going to happen with the next 5 to 11 days. And if this is the case she is more likely going to have to have interventional radiology place a drain in this abscess and she might progress to needing an emergent splenectomy. I will discuss with the hospitalist with the work-up for her embolic event is done. Would recommend consulting Dr. Andrade from hematology input's input on if there is hypercoagulable state going on at this time. I believe this is unlikely. 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 She remained stable her white count is normal and she does not have fever. (3) Diarrhea: QUALIFIERS: Diarrhea type: unspecified type Qualified Code(s): R19.7 - Diarrhea, unspecified HPI Consult Data Date of Consult: 03/15/21 HPI Narrative HPI Narrative: BARBER WEBB, is a 81 F who presented to the emergency department [facility] on 03/14/2021 complaining of left upper quadrant pain that started on Monday. She denied any other associated symptoms. She had has no sick contacts. She has a cough but this is chronic and is nonproductive. She is fully vaccinated for COVID-19. She reports that the pain has been worsening since Monday and that is why she presented to the emergency department. She was sent by the emergency room physician for CT of her abdomen pelvis with contrast and developed acute hypoxia with an oxygen saturation of 91% on room air and therefore a CTA of her chest was performed. Upon review of her SPO 2 from previous admissions her oxygen saturations do run on the low side and are noted to be intermittently in the low 90s on room air. Upon questioning the patient she has been told in the past that she should wear oxygen at home but has deferred as she feels like her inhalers have helped her. She follows with Dr. Albrecht as an outpatient for pulmonary services. She is also had lymphoma and has a chronic right upper lobe infiltrate/mass/scarring. This was biopsied twice in the past and she was found to have recurrent lymphoma and was reinitiated on Rituxan from [id number]. She follows with Dr. Ferrera in the outpatient setting for her lymphoma. The CTA of her chest was unremarkable for PE but did again demonstrate a right upper lobe abnormality. The CTA of her abdomen showed no vascular abnormalities but did show a 5 cm splenic infarct. I suspect this is what has been causing her pain. She was treated in the emergency department for pneumonia with ceftriaxone and azithromycin given the right upper lobe abnormality, but has no other symptoms and therefore will defer further treatment for pneumonia at this point. Her CBC was overall unremarkable other than some mild thrombocytopenia and leukocytosis with a white count of 11.1. I suspect this is a stress reaction. An ABG was performed and showed no significant abnormalities and her PO2 was 105 on 3 L nasal cannula. Her CMP showed mild hypokalemia with a potassium of 3.3 but was otherwise fairly unremarkable. She was admitted and monitored on telemetry given her splenic infarct to rule out cardiac arrhythmia such as atrial fibrillation as a cause for her splenic infarct and will perform an echocardiogram. Since being in the hospital the patient's pain has been improving. Her white count has come down. She has not had a fever. She is still complaining of diarrhea which has been ongoing. And she is having early satiety which has also been ongoing. 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 Radiation adverse effect Shortness of breath Thyroid disease Home Medications trazodone 75 mg PO QHS 11/04/15 [History Last Taken 03/13/21 21:00] amlodipine 5 mg tablet 5 tab PO DAILY 02/15/20 [History Last Taken 03/14/21] levothyroxine 50 mcg tablet 50 mcg PO DAILY 02/15/20 [History Last Taken 03/14/21] tizanidine 2 mg tablet 2 mg PO QHS PRN #14 tab 02/15/20 [Rx Last Taken 03/13/21] fluticasone propion-salmeterol [AirDuo RespiClick] 1 inh INHALATION BID 03/14/21 [History Last Taken 03/14/21] furosemide [Lasix] 20 mg PO DAILY 03/14/21 [History Last Taken 03/13/21] Allergy/AdvReac Type Severity Reaction Status Date / Time ibuprofen Allergy Mild rash Verified 03/14/21 09:03 lisinopril [From Prinivil] Allergy Mild cough/scrathy Verified 03/14/21 09:03 throat losartan [From Cozaar] Allergy Mild cough/scratchy Verified 03/14/21 09:03 throat moxifloxacin [From Avelox] Allergy Mild GI Upset Verified 03/14/21 09:03 Family History Mother Diabetes Father Myocardial infarction Surgical History No pertinent past surgical history Social History household members: none Smoking Status: Never smoker alcohol intake: never substance use type: does not use ROS Constitutional Constitutional: Reports anorexia Gastrointestinal Gastrointestinal: Reports abdominal pain and diarrhea Physical Exam Const alert, oriented x3 and no apparent distress General Appearance: cooperative Eyes PERRL and EOMs intact bilaterally Lymph Lymphatic: no lymphadenopathy noted Resp normal respiratory effort and clear to auscultation bilaterally Cardio Rate: regular rate Rhythm: regular rhythm GI soft to palpation GI Narrative: There are no peritoneal signs her pain is localized to the left upper quadrant. Palpation: tender LUQ Skin Rashes: no rashes Lab / Micro Data Result Diagrams: 03/15/21 09:28 03/15/21 09:28 Labs: Laboratory Results - last 24 hr 03/14/21 03/15/21 03/15/21 18:53 03:38 09:28 WBC RBC Hgb Hct MCV MCH MCHC RDW Std Deviation RDW Coeff of Yaneli Plt Count MPV Immature Gran % (Auto) Neut % (Auto) Lymph % (Auto) [place] % (Auto) Eos % (Auto) Baso % (Auto) Absolute Neuts (auto) Absolute Lymphs (auto) Nucleated RBC % APTT 168.6 H* 77.3 H 70.3 H Sodium Potassium Chloride Carbon Dioxide Anion Gap BUN Creatinine Estim Creat Clear Calc Est GFR (MDRD) Af Amer Est GFR (MDRD) Non-Af BUN/Creatinine Ratio Glucose Calcium Magnesium 03/15/21 03/15/21 09:28 09:28 WBC 6.9 RBC 3.88 L Hgb 11.3 L Hct 35.1 L MCV 90.5 MCH 29.1 MCHC 32.2 RDW Std Deviation 50.1 H RDW Coeff of Yaneli 15.2 H Plt Count 143 L MPV 9.7 Immature Gran % (Auto) 0.700 Neut % (Auto) 74.8 H Lymph % (Auto) 13.4 L [place] % (Auto) 9.8 Eos % (Auto) 0.7 Baso % (Auto) 0.6 Absolute Neuts (auto) 5.2 Absolute Lymphs (auto) 0.93 Nucleated RBC % 0 APTT Sodium 139 Potassium 3.5 Chloride 102 Carbon Dioxide 30.0 Anion Gap 7 BUN 11 Creatinine 0.82 Estim Creat Clear Calc 43.00 Est GFR (MDRD) Af Amer 86 Est GFR (MDRD) Non-Af 71 BUN/Creatinine Ratio 13.4 Glucose 151 H Calcium 8.4 L Magnesium 2.1 Micro: Microbiology 03/14/21 15:30 SARS-CoV-2 Antigen (Rapid) - Final Mucosa - Nasopharyngeal Radiology Impression Echocardiogram 03/15/21 08:40 Interpretation Summary Normal LV size. Moderate eccentric left ventricular hypertrophy. The estimated ejection fraction is 60 %. Left ventricular systolic function is normal. Pulmonary artery systolic pressure is 46 mmHg. Mild (1+) eccentric mitral valve insufficiency. Ordering Physician: Stephen Pedersen Referring Physician: Jose Grayson Performed By: Yin King, RUDY, RVT
[2021-03-15] MEDS: traZODone 50 MG Tablet 75 MG PO (21:36)
[2021-03-16] VITALS (14 sets, daily range): BP systolic 135–157; BP diastolic 61–72; PULSE 68–91; RESP 16–24; TEMP 36.4–36.7; O2SAT 86–98
[2021-03-16] MEDS: Levothyroxine 50 MCG Tablet PO (05:11)
[2021-03-16] MEDS: Acetaminophen 325 MG Tablet 650 MG PO (05:12)
[2021-03-16 05:14] LABS: Absolute Lymphocyte Count 1.26 X10^3/uL (0.83-4.51); Absolute Neutrophil Count 4.6 X10^3/uL (2.0-7.7); Basophil# 0.04 X10^3/uL; Basophil% 0.6 % (0-1); Eosinophil# 0.11 X10^3/uL; Eosinophils% 1.6 % (0-5); Hematocrit 34.9 % (37-47); Hemoglobin 11.2 g/dL (12.0-15.0); Lymphocyte # 1.26 X10^3/ul (0.83-4.51); Lymphocyte % 18.2 % (19-41); Mean Corp Hgb Conc 32.1 g/dL (32-36); Mean Corpuscular Hgb 28.4 pg (27.0-32.0); Mean Corpuscular Volume 88.6 fL (81-99); Mean Platelet Vol. 10.6 fl (6.2-12.0); Monocyte# 0.82 X10^3/uL; Monocyte% 11.9 % (0-10); NRBC Flagged by Analyzer 0 % (0-5); Neutrophil # 4.61 X10^3/uL (2.7-7.7); Neutrophil % 66.7 % (47-70); Platelet Count 175 K/mm3 (150-450); RBC Distribution Width SD 48.9 fl (35.1-43.9); Red Blood Count 3.94 M/mm3 (4.2-5.4); White Blood Count 6.9 K/mm3 (4.4-11.0)
[2021-03-16 05:36] LABS: Anion Gap 4 (5-15); BUN 8 mg/dL (7-18); BUN/Creat Ratio 13.9 RATIO (10-20); Calcium,Total 8.5 mg/dL (8.5-10.1); Chloride 103 mmol/L (98-107); Creatinine, Serum 0.58 mg/dL (0.55-1.02); EST Glomerular Filtration Rate 106 mL/min (>60); Est Glom Filt Rate - Afr Amer 129 mL/min (>60); Estimated Creatinine Clearance 35.26 ml/min; Glucose 81 mg/dL (74-106); Sodium Level 141 mmol/L (136-145)
[2021-03-16] MEDS: Albuterol 2.5 MG/3 ML VIAL.NEB. INHALATION ×3 (06:54→19:25)
[2021-03-16] MEDS: Budesonide Respules 0.5 MG/2 ML AMPUL.NEB. INHALATION ×2 (06:54→19:25)
[2021-03-16 07:57] LABS: Phosphorus 3.4 mg/dL (2.5-4.9)
[2021-03-16] MEDS: Potassium Chloride Oral Tablet 20 MEQ 40 MEQ PO ×2 (08:25→10:26)
--- NOTE | 2021-03-16 09:18 | NURSING ---
RNCM Note: Palliative Screening Tool completed per [facility] guideline d/t Lace 3. Patient does not meet criteria at this time for referral. Salome Vang RNCM
[2021-03-16 09:50] LABS: Partial Thromboplast Time 65.1 Seconds (24.1-36.2)
[2021-03-16] MEDS: amLODIPine 5 MG Tablet PO (10:24)
[2021-03-16] MEDS: Furosemide 20 MG Tablet PO (10:24)
--- NOTE | 2021-03-16 11:14 | PN.HOSP_ITS ---
Subjective Subjective Patient still complaining of left upper quadrant pain, no improvement on pain medication. Patient was discussed with Dr. Johnston yesterday and agreed upon heme-onc consult. I called Dr. Carreon in the morning and requested for consult. Patient does not have family history of hypercoagulable or hereditary causes of thromboembolism. Objective Data Objective Data Vital Signs: Vital Signs Temp Pulse Resp BP Pulse Ox 97.9 F 74 18 135/62 H 97 03/16/21 10:20 03/16/21 10:20 03/16/21 10:20 03/16/21 10:20 03/16/21 10:20 Oxygen Flow Rate (L/min) 2 Oxygen Delivery Method Nasal Cannula Weight: 119 lb Body Mass Index (BMI) 21.0 Intake & Output: Intake and Output for Last 24 Hours 03/14/21 03/15/21 03/16/21 23:59 23:59 23:59 Intake Total 1362.07 / 1362.07 720 / 970 450 / 450 Output Total 300 / 300 1100 / 1300 200 / 200 Balance 1062.07 / 1062.07 -380 / -330 250 / 250 Lab / Micro Data Result Diagrams: 03/16/21 04:48 03/16/21 04:48 Labs: Laboratory Results - last 24 hr 03/16/21 03/16/21 03/16/21 04:48 04:48 04:48 WBC 6.9 RBC 3.94 L Hgb 11.2 L Hct 34.9 L MCV 88.6 MCH 28.4 MCHC 32.1 RDW Std Deviation 48.9 H RDW Coeff of Yaneli 15.0 H Plt Count 175 MPV 10.6 Immature Gran % (Auto) 1.000 H Neut % (Auto) 66.7 Lymph % (Auto) 18.2 L [place] % (Auto) 11.9 H Eos % (Auto) 1.6 Baso % (Auto) 0.6 Absolute Neuts (auto) 4.6 Absolute Lymphs (auto) 1.26 Nucleated RBC % 0 APTT Sodium 141 Potassium 3.0 L Chloride 103 Carbon Dioxide 34.0 H Anion Gap 4 L BUN 8 Creatinine 0.58 Estim Creat Clear Calc 35.26 Est GFR (MDRD) Af Amer 129 Est GFR (MDRD) Non-Af 106 BUN/Creatinine Ratio 13.9 Glucose 81 Calcium 8.5 Phosphorus 3.4 Magnesium 2.0 03/16/21 09:30 WBC RBC Hgb Hct MCV MCH MCHC RDW Std Deviation RDW Coeff of Yaneli Plt Count MPV Immature Gran % (Auto) Neut % (Auto) Lymph % (Auto) [place] % (Auto) Eos % (Auto) Baso % (Auto) Absolute Neuts (auto) Absolute Lymphs (auto) Nucleated RBC % APTT 65.1 H Sodium Potassium Chloride Carbon Dioxide Anion Gap BUN Creatinine Estim Creat Clear Calc Est GFR (MDRD) Af Amer Est GFR (MDRD) Non-Af BUN/Creatinine Ratio Glucose Calcium Phosphorus Magnesium Micro: Microbiology 03/14/21 15:30 Mucosa - Nasopharyngeal SARS-CoV-2 Antigen (Rapid) - Final Radiography Diagnostic Testing: Radiology Impression Abdomen/Pelvis CT 03/14/21 09:21 IMPRESSION: 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 Electronically Signed: Trent Vallejo MD at 11:47 EDT Tel , Service support , ADDENDUM: 03/15/21 1832 Echocardiogram 03/15/21 08:40 Interpretation Summary Normal LV size. Moderate eccentric left ventricular hypertrophy. The estimated ejection fraction is 60 %. Left ventricular systolic function is normal. Pulmonary artery systolic pressure is 46 mmHg. Mild (1+) eccentric mitral valve insufficiency. Ordering Physician: Stephen Pedersen Referring Physician: Jose Grayson Performed By: Yin King, RUDY, RVT Physical Exam Narrative General: Alert, Oriented x3, Cooperative HEENT: Atraumatic, PERRLA, EOMI, Normocephalic Oral: No Gingival or Mucosal Lesions/ Ulcerations Neck: Supple, No JVD, Negative Carotid Bruits Lungs: Air entry diminished in bilateral lung bases. No crepitation/rhonchi Cardiovascular: Irregular rhythm due to frequent PVCs. Normal S1, Normal S2, No murmurs Abdomen: Bowel Sounds Present, Soft, tenderness present over left upper quadrant. Non-Distended : No renal angle tenderness. No suprapubic tenderness. Extremities: No edema, Capillary Refill Less than 3 Seconds Skin: No rashes, No breakdown Musculoskeletal: No Tenderness to Palpation of Joints or Extremities Neurological: Cranial nerves II-XII grossly intact, Deep Tendon Reflexes 2+/4 and Symmetrical, Neuro grossly intact Psych/Mental Status: Normal Affect, Appropriate. Assessment & Plan Assessment/Plan (1) Infarction of spleen: PLAN: This 81-year-old female was admitted for left lower chest pain along with left upper abdominal pain associated with nausea and several bowel movements. No GI bleed. Acute splenic infarct: CT abdomen showed 5 cm splenic infarct with moderate spl enomegaly with a small amount of free fluid. Patient was initially started on IV heparin drip then changed to Lovenox therapeutic dose. Patient has pain and tenderness. Patient denies history of coronary artery disease, A. fib or CHF. monitoring and evaluation advisor more consistent of frequent PVCs and bigeminy. 03/16: Patient seen by Dr. Johnston yesterday. Dr. Carreon consulted for explaining infarct to elucidate etiology although it seems cryptogenic until now. Patient denies history of mesenteric ischemia or ischemic colitis. 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 Patient has been treated with radiation and Rituxan. Patient follows Dr. Albrecht and Dr. Gonzalez. Currently patient does not have cough or fever or sputum production symptoms of pneumonia. Chronic hypoxic respiratory failure secondary to asthma/radiation fibrosis -Patient has abnormal PFTs. Continue inhalers. Oxygen therapy to keep pulse ox more than 90%. -Continue inhalers -CTA was performed and shows no pulmonary emboli Other comorbidities include hypertension, hypothyroidism, insomnia: Patient on a mlodipine, furosemide 20 mg daily and levothyroxine and trazodone. DVT prophylaxis On therapeutic dose of Lovenox CODE STATUS -Full code Clinical Impression(s) from Imaging Studies Abdomen/Pelvis CT 03/14/21 09:21 IMPRESSION: 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 Chest CTA 03/14/21 11:56 IMPRESSION: 1. No evidence of pulmonary embolus. 2. Soft tissue in the right apex which may represent scar however developing pneumonia cannot be excluded. There is a small left-sided effusion also present. Individualized dose optimization techniques were used for this CT. Charges/Coding Visit Charges Inpatient E&M: 50509 Subs Hosp L2
[2021-03-16] MEDS: 0.9% Saline Lock 10 ML Syringe IV (11:47)
[2021-03-16] MEDS: oxyCODONE 5 MG Tablet PO ×2 (11:55→16:35)
[2021-03-16] MEDS: Enoxaparin 60 MG/0.6 ML Syringe 50 MG SC (15:17)
--- NOTE | 2021-03-16 16:14 | PCM.PN.SRG ---
Subjective Subjective Patient was in significant amount of pain this morning this was relieved with IV pain medication and she is done relatively well throughout the day. She has got up to walk she is currently off of her IV heparin and on Lovenox now. Objective Data Objective Data Abdomen is soft she still is tender in the left upper quadrant but not as bad as she was yesterday. Vital Signs: Vital Signs Temp Pulse Resp BP Pulse Ox 97.6 F L 80 19 H 157/72 H 92 03/16/21 15:21 03/16/21 15:21 03/16/21 15:21 03/16/21 15:03/16/21 15:21 Oxygen Flow Rate (L/min) 2 Oxygen Delivery Method Room Air Weight: 119 lb Body Mass Index (BMI) 21.0 Intake & Output: Intake and Output for Last 24 Hours 03/14/21 03/15/21 03/16/21 23:59 23:59 23:59 Intake Total 1362.07 / 1362.07 720 / 970 640.08 / 640.08 Output Total 300 / 300 1100 / 1300 200 / 200 Balance 1062.07 / 1062.07 -380 / -330 440.08 / 440.08 Lab / Micro Data Result Diagrams: 03/16/21 04:48 03/16/21 04:48 Labs: Laboratory Results - last 24 hr 03/16/21 03/16/21 03/16/21 04:48 04:48 04:48 WBC 6.9 RBC 3.94 L Hgb 11.2 L Hct 34.9 L MCV 88.6 MCH 28.4 MCHC 32.1 RDW Std Deviation 48.9 H RDW Coeff of Yaneli 15.0 H Plt Count 175 MPV 10.6 Immature Gran % (Auto) 1.000 H Neut % (Auto) 66.7 Lymph % (Auto) 18.2 L [place] % (Auto) 11.9 H Eos % (Auto) 1.6 Baso % (Auto) 0.6 Absolute Neuts (auto) 4.6 Absolute Lymphs (auto) 1.26 Nucleated RBC % 0 APTT Sodium 141 Potassium 3.0 L Chloride 103 Carbon Dioxide 34.0 H Anion Gap 4 L BUN 8 Creatinine 0.58 Estim Creat Clear Calc 35.26 Est GFR (MDRD) Af Amer 129 Est GFR (MDRD) Non-Af 106 BUN/Creatinine Ratio 13.9 Glucose 81 Calcium 8.5 Phosphorus 3.4 Magnesium 2.0 03/16/21 09:30 WBC RBC Hgb Hct MCV MCH MCHC RDW Std Deviation RDW Coeff of Yaneli Plt Count MPV Immature Gran % (Auto) Neut % (Auto) Lymph % (Auto) [place] % (Auto) Eos % (Auto) Baso % (Auto) Absolute Neuts (auto) Absolute Lymphs (auto) Nucleated RBC % APTT 65.1 H Sodium Potassium Chloride Carbon Dioxide Anion Gap BUN Creatinine Estim Creat Clear Calc Est GFR (MDRD) Af Amer Est GFR (MDRD) Non-Af BUN/Creatinine Ratio Glucose Calcium Phosphorus Magnesium Micro: Microbiology 03/14/21 15:30 Mucosa - Nasopharyngeal SARS-CoV-2 Antigen (Rapid) - Final Radiography Diagnostic Testing: Radiology Impression Abdomen/Pelvis CT 03/14/21 09:21 IMPRESSION: 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 Electronically Signed: Trent Vallejo MD at 11:47 EDT Tel , Service support , ADDENDUM: 03/15/21 1832 Assessment & Plan Assessment/Plan (1) Infarction of spleen: PLAN: At this point we will continue to wait for consultation from hematology. If she still has significant pain then I would say tomorrow repeating a CT scan with IV and p.o. contrast should be obtained. This would be needed to identify if there is been progression or more worrisome changes of an abscess.
--- NOTE | 2021-03-16 18:05 | CON.PCM_ITS ---
Consult Date of Consult: 03/16/[address] Harvey regarding a patient known to Dr. 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 BARBER WEBB, is a 81 F who presented to the emergency department [facility] on 03/14/2021 complaining of left upper quadrant pain that started on Monday. She denied any other associated symptoms. She has a cough from asthma, but this is chronic and nonproductive. She is fully vaccinated for COVID-19 in November. She reports that the pain has been worsening since Monday and that is why she presented to the emergency department. She was sent by the emergency room physician for CT of her abdomen pelvis with contrast and developed acute hypoxia with an oxygen saturation of 91% on room air and a CTA of her chest was performed. Upon review of her SPO 2 from previous admissions her oxygen saturations do run on the low side and are noted to be intermittently in the low 90s on room air. . She follows with Dr. Albrecht as an outpatient for pulmonary services. She is also had non-Hodgkin lymphoma (marginal zone B cell). Initially treated with rituximab and radiation therapy in 2005. She had recurrent lymphoma and was reinitiated on Rituxan in 2011 and again in 2014.. The CTA of her chest was unremarkable for PE but did again demonstrate a right upper lobe abnormality. The CTA of her abdomen showed no vascular abnormalities but show a 5 cm splenic infarct. Moderate splenomegaly also noted. She was treated in the emergency department for pneumonia with ceftriaxone and azithromycin given the right upper lobe abnormality, blood cultures pending. Her CBC was overall unremarkable other than some mild thrombocytopenia and leukocytosis with a white count of 11.1. ABG was performed and showed no significant abnormalities and her PO2 was 105 on 3 L nasal cannula. Her CMP showed mild hypokalemia with a potassium of 3.3 but was otherwise fairly unremarkable. She was admitted and monitored on telemetry given her splenic infarct to rule out cardiac arrhythmia such as atrial fibrillation as a cause for her splenic infarct and will perform an echocardiogram. She was started on IV heparin and subsequently converted to Lovenox this afternoon. Prior to admission, patient has mild fatigue and weight loss. Although she denied fever, chills, night sweat or early satiety. She denies painful adenopathy. 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 No rectal bleeding or melena. She takes Imodium as needed for her diarrhea PFSH Medical History Arthritis Asthma Cancer Chronic neck and back pain Difficulty balancing Fatigue Hypertension Limb weakness Marginal zone B cell lymphoma Mass of upper lobe of right lung Radiation adverse effect Shortness of breath Thyroid disease Home Medications trazodone 50 mg PO QHS 11/04/15 [History Last Taken 11/03/15] amlodipine 5 mg tablet 5 tab PO DAILY 02/15/20 [History Last Taken 03/14/21] furosemide 20 mg tablet PO DAILY 02/15/20 [History Last Taken 03/13/21] levothyroxine 50 mcg tablet 50 mcg PO DAILY 02/15/20 [History Last Taken 03/14/21] tizanidine 2 mg tablet 2 mg PO QHS PRN #14 tab 02/15/20 [Rx Last Taken Unknown] fluticasone propion-salmeterol [AirDuo RespiClick] 1 inh INHALATION BID 03/14/21 [History Last Taken 03/14/21] Allergy/AdvReac Type Severity Reaction Status Date / Time ibuprofen Allergy Mild rash Verified 03/14/21 09:03 lisinopril [From Prinivil] Allergy Mild cough/scrathy Verified 03/14/21 09:03 throat losartan [From Cozaar] Allergy Mild cough/scratchy Verified 03/14/21 09:03 throat moxifloxacin [From Avelox] Allergy Mild GI Upset Verified 03/14/21 09:03 Family History Mother Diabetes Father Myocardial infarction Surgical History No pertinent past surgical history Social History household members: none Smoking Status: Never smoker alcohol intake: never substance use type: does not use ROS Review of Systems ROS Unobtainable: Denies due to encephalopathy, due to endotracheal tube, due to mental condition, due to mental status or other Constitutional Constitutional: Denies anorexia, change in weight, chills, fatigue, fever(s), malaise, night sweats, weakness or other Eyes Eyes: Denies blurry vision, change in eye color, change in vision, discharge from eye(s), double vision, erythema, eye pain, loss of vision or other ENT HEENT: Denies abnormal hearing, dysphagia, ear pain, epistaxis, headache(s), hearing loss, nasal congestion, nasal discharge, post nasal drip, sinus pressu re, sore throat or other Cardiovascular Cardiovascular: Denies chest pain, claudication, dyspnea on exertion, edema, lightheadedness, orthopnea, palpitations, paroxysmal nocturnal dyspnea, rapid heart rate, syncope or other Respiratory/Chest Respiratory/Chest: Reports cough and other Details: Cough is chronic and unchanged ; Denies dyspnea, excessive phlegm production, hemoptysis, productive cough, shortness of breath at rest, shortness of breath with exertion or wheezing Gastrointestinal Gastrointestinal: Reports abdominal pain and other Details: Left upper quadrant pain ; Denies coffee ground emesis, constipation, diarrhea, dyspepsia, hematemesis, hematochezia, loose stools, melena, nausea or vomiting Genitourinary Genitourinary: Denies burning urination, difficulty urinating, dysuria, h ematuria, nocturia, urinary frequency, urinary hesitancy, urinary incontinence, urinary urgency or other Musculoskeletal Musculoskeletal: Denies arthralgias, back pain, joint pain, joint stiffness, payam int swelling, myalgias, neck pain or other Neurologic Neurologic: Denies abnormal gait, abnormal speech, confusion, disequilibrium, dizziness, focal weakness, headache(s), numbness, paresthesias, seizure-like activity, seizures, syncope, tingling, tremor(s) or other Psychiatric Psychiatric: Denies anxiety, depression, homicidal ideation, suicidal ideation or other Endocrine Endocrinology: Denies change in body appearance, cold intolerance, excessive sweating, heat intolerance, polydipsia, polyuria or other Hematologic/Lymphatic Hematologic/Lymphatic: Reports other Details: History of lymphoma ; Denies anemia, easy bleeding, easy bruising or lymphadenopathy Allergic/Immunologic Allergic/Immunologic: Denies rhinitis, hives, eczemia, asthma or other Weight Weight: 53.977 kg Body Mass Index (BMI) 21.0 Physical Exam alert, oriented x3, no apparent distress and average body habitus Constitutional Narrative: Elderly white female who's appears younger than stated age, sitting up in bed, currently appears fairly comfortable, daughter is at bedside General Appearance: cooperative HEENT normocephalic, head/scalp atraumatic, moist oral mucous membranes and oropharynx normal HEENT Narrative: Mallampati 2, no thrush, [employer] [employer] Mouth: oral and palatal mucosa normal Eyes PERRL, EOMs intact bilaterally and conjunctivae normal Neck no cervical or axillary lymphadenopathy, supple, no JVD and no carotid bruits Resp normal respiratory effort, no retractions, no use of accessory muscles and clear to auscultation bilaterally Resp Narrative: Diffusely diminished but clear Auscultation: crackles, rales, rhonchi and wheezes Cardio regular rate, regular rhythm, S1 normal heart sound, S2 normal heart sound, no murmurs, no rub, no gallops, no clicks and no JVD GI normal to inspection, nondistended, normoactive bowel sounds, soft to palpation and non-distended; Negative for hepatomegaly; spleen is enlarged to 3 cm below left costal margin Auscultation: Negative for hyperactive bowel sounds or hypoactive bowel sounds Palpation: tender LUQ; Negative for guarding or hernia Extremity normal to inspection, full ROM and no clubbing, cyanosis or edema Peripheral Pulses: Yes pulses 2+ throughout Skin no rashes or lesions noted, no wounds, skin turgor normal, no jaundice, no petechiae and no mottling Neuro oriented x3, CN's II-XII intact bilaterally, moves all extremities and no focal motor deficits Sensorium / Orientation: awake, alert, oriented to person, oriented to place and oriented to time Speech: speech normal Psych affect normal Mood & Affect: Negative for depressed or anxious Results Lab / Micro Data Result Diagrams: 03/14/21 09:30 document embedded image 03/14/21 09:30 document embedded image Labs:Laboratory Results - last 24 hr 03/14/21 03/14/21 03/14/21 09:30 09:30 09:30 WBC 11.1 H RBC 4.54 Hgb 13.1 Hct 40.3 MCV 88.8 MCH 28.9 MCHC 32.5 RDW Std Deviation 49.6 H RDW Coeff of Yaneli 15.2 H Plt Count 147 L MPV 10.3 Immature Gran % (Auto) 0.700 Neut % (Auto) 80.5 H Lymph % (Auto) 8.0 L Dougherty % (Auto) 10.2 H Eos % (Auto) 0.1 Baso % (Auto) 0.5 Absolute Neuts (auto) 8.9 H Absolute Lymphs (auto) 0.89 Nucleated RBC % 0 PT INR APTT Sodium 137 Potassium 3.3 L Chloride 99 Carbon Dioxide 29.0 Anion Gap 9 BUN 12 Creatinine 0.88 Estim Creat Clear Calc 38.31 Est GFR (MDRD) Af Amer 79 Est GFR (MDRD) Non-Af 66 BUN/Creatinine Ratio 13.7 Glucose 98 Lactic Acid 1.6 Calcium 9.0 Total Bilirubin 0.90 AST 49 H ALT 18 Alkaline Phosphatase 119 H Total Protein 7.3 Albumin 3.4 Globulin 3.9 Albumin/Globulin Ratio 0.9 Lipase 55 L 03/14/21 12:09 WBC RBC Hgb Hct MCV MCH MCHC RDW Std Deviation RDW Coeff of Yaneli Plt Count MPV Immature Gran % (Auto) Neut % (Auto) Lymph % (Auto) Dougherty % (Auto) Eos % (Auto) Baso % (Auto) Absolute Neuts (auto) Absolute Lymphs (auto) Nucleated RBC % PT 15.2 H INR 1.3 APTT 38.8 H Sodium Potassium Chloride Carbon Dioxide Anion Gap BUN Creatinine Estim Creat Clear Calc Est GFR (MDRD) Af Amer Est GFR (MDRD) Non-Af BUN/Creatinine Ratio Glucose Lactic Acid Calcium Total Bilirubin AST ALT Alkaline Phosphatase Total Protein Albumin Globulin Albumin/Globulin Ratio Lipase Micro:Microbiology 03/14/21 15:30 SARS-CoV-2 Antigen (Rapid) - Final Mucosa - Nasopharyngeal ABG Data ABG results:ABG 03/14/21 12:18 Specimen Type ART Sample Site L Radial pH 7.36 Bicarbonate Actual 27.5 H Total CO2 29 Base Excess 2 O2 Saturation 98 ABG pCO2 48.3 H ABG pO2 105 H Keagan Test Positive O2 Delivery Device Cannula Liter Flow 3.0 Radiology Impression Abdomen/Pelvis CT 03/14/21 09:21 IMPRESSION: 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 Electronically Signed: Trent Vallejo MD at 11:47 EDT Tel , Service support , Chest CTA 03/14/21 11:56 IMPRESSION: 1. No evidence of pulmonary embolus. 2. Soft tissue in the right apex which may represent scar however developing pneumonia cannot be excluded. There is a small left-sided effusion also present. Individualized dose optimization techniques were used for this CT. at 1423 Reported and signed by: Rhett Grijalva MD Electronically Signed: Rhett Grijalva MD at 14:22 EDT Tel , Service support , Peripheral smear; neutrophilia, platelet decreased. No teardrops or schistocytes Assessment & Plan Assessment/Plan: In summary, Mrs. Webb 81-year-old lady with history of marginal zone B-cell ly mphoma with multiple recurrence treated with rituximab. She presented with acute splenic infarct and splenomegaly. Assessment & Plan Assessment/Plan (1) Infarction of spleen: PLAN: Agree with current plan of low molecular weight heparin therapy; Lovenox 1mg/kg every 12 hours Pain management Add dexamethasone 4mg twice daily PPI, Protonix 40mg once daily (2) Splenomegaly: PLAN: Probably secondary to recurrent marginal zone lymphoma (3) Marginal zone lymphoma: PLAN: Check LDH, and remote hepatitis serology Outpatient bone marrow biopsy and discuss treatment option with rituximab with Dr. Gonzalez next week
[2021-03-16 18:59] LABS: LDH 493 U/L (84-246)
[2021-03-16] MEDS: traZODone 50 MG Tablet 75 MG PO (20:46)
[2021-03-17] VITALS (13 sets, daily range): BP systolic 138–173; BP diastolic 62–80; PULSE 71–87; RESP 15–18; TEMP 36.6–37; O2SAT 84–98
[2021-03-17] MEDS: Acetaminophen 325 MG Tablet 650 MG PO (01:58)
[2021-03-17] MEDS: oxyCODONE 5 MG Tablet PO ×2 (01:58→10:23)
[2021-03-17] MEDS: Enoxaparin 60 MG/0.6 ML Syringe 50 MG SC ×2 (05:17→19:02)
[2021-03-17] MEDS: Levothyroxine 50 MCG Tablet PO (05:17)
[2021-03-17] MEDS: Albuterol 2.5 MG/3 ML VIAL.NEB. INHALATION ×3 (06:50→21:15)
[2021-03-17] MEDS: 0.9% Saline Lock 10 ML Syringe IV (07:36)
[2021-03-17] MEDS: proCHLORPERazine 10 MG/2 ML Vial 5 MG IV (07:36)
--- NOTE | 2021-03-17 07:41 | NURSING ---
PT BECAME NAUSEATED W/DRY HEAVES WHILE UP TO THE SINK TO WASH HER HANDS. COMPAZINE GIVEN AND PT RESTING IN BED.
--- NOTE | 2021-03-17 07:42 | PCM.PN.BLA ---
Progress Note Hematology oncology progress note: Patient still has significant left upper quadrant pain with nausea this morning Exam unremarkable except for tender enlarged spleen. Further review of the CT scans showed no evidence of adenopathy. Moderate splenomegaly with splenic infarct. Calcified plaques in aorta. Assessment/Plan: 1) splenic infarct Plan: -Continue anticoagulation with Lovenox injection -Pain management -Compazine or Zofran as needed for nausea 2) splenomegaly -Probably secondary to recurrent marginal zone B-cell lymphoma Plan: -Hepatitis serology pending 3) history of marginal zone B-cell lymphoma Plan: -Continue Decadron 4mg twice daily -PPI prophylaxis; Protonix 40mg daily -Outpatient bone marrow biopsy to confirm recurrent disease. -Follow-up with Dr. Gonzalez discuss treatment options if recurrent disease is confirmed
[2021-03-17 08:26] LABS: Anion Gap 5 (5-15); BUN 7 mg/dL (7-18); BUN/Creat Ratio 10.1 RATIO (10-20); Calcium,Total 8.7 mg/dL (8.5-10.1); Chloride 103 mmol/L (98-107); Creatinine, Serum 0.69 mg/dL (0.55-1.02); EST Glomerular Filtration Rate 86 mL/min (>60); Est Glom Filt Rate - Afr Amer 104 mL/min (>60); Estimated Creatinine Clearance 35.26 ml/min; Glucose 94 mg/dL (74-106); Potassium 3.7 mmol/L (3.5-5.1); Sodium Level 139 mmol/L (136-145)
[2021-03-17] MEDS: dexAMETHasone 4 MG Tablet PO ×2 (10:23→16:36)
[2021-03-17] MEDS: amLODIPine 5 MG Tablet PO (10:24)
[2021-03-17] MEDS: Furosemide 20 MG Tablet PO (10:24)
[2021-03-17] MEDS: Pantoprazole Sodium 40 MG Tablet PO (10:24)
--- NOTE | 2021-03-17 11:42 | PCM.PN.HOSP ---
Subjective Subjective Patient abdominal pain predominantly LUQ is slightly better. Seen and discussed with Dr. Carreon. Patient follows Dr. Gonzalez and was in remission marginal zone lymphoma for 8 years until now. It seems probably relapse of lymphoma with splenomegaly and splenic infarct. Continue Lovenox. Objective Data Objective Data Vital Signs: Vital Signs Temp Pulse Resp BP Pulse Ox 97.8 F 71 18 173/80 H 95 03/17/21 10:18 03/17/21 10:52 03/17/21 10:18 03/17/21 10:18 03/17/21 10:18 Oxygen Flow Rate (L/min) [ 2 AMBULATING with Oxygen #1] Oxygen Flow Rate (L/min) 2 Oxygen Delivery Method Nasal Cannula Weight: 119 lb Body Mass Index (BMI) 21.0 Intake & Output: Intake and Output for Last 24 Hours 03/15/21 03/16/21 03/17/21 23:59 23:59 23:59 Intake Total 720 / 970 640.08 / 640.08 Output Total 1100 / 1300 200 / 200 Balance -380 / -330 440.08 / 440.08 Lab / Micro Data Result Diagrams: 03/16/21 04:48 03/17/21 07:58 Labs: Laboratory Results - last 24 hr 03/16/21 03/17/21 04:48 07:58 Sodium 139 Potassium 3.7 Chloride 103 Carbon Dioxide 31.0 Anion Gap 5 BUN 7 Creatinine 0.69 Estim Creat Clear Calc 35.26 Est GFR (MDRD) Af Amer 104 Est GFR (MDRD) Non-Af 86 BUN/Creatinine Ratio 10.1 Glucose 94 Calcium 8.7 Lactate Dehydrogenase 493 H Micro: Microbiology 03/14/21 15:30 Mucosa - Nasopharyngeal SARS-CoV-2 Antigen (Rapid) - Final Physical Exam Narrative Physical exam General: Alert, Oriented x3, Cooperative HEENT: Atraumatic, PERRLA, EOMI, Normocephalic Oral: No Gingival or Mucosal Lesions/ Ulcerations Neck: Supple, No JVD, Negative Carotid Bruits Lungs: Air entry diminished in bilateral lung bases. No crepitation/rhonchi Cardiovascular: Irregular rhythm due to frequent PVCs. Normal S1, Normal S2, No murmurs Abdomen: Bowel Sounds Present, Soft, mild tenderness present over left upper quadrant. Splenomegaly. : No renal angle tenderness. No suprapubic tenderness. Extremities: No edema, Capillary Refill Less than 3 Seconds Skin: No rashes, No breakdown Musculoskeletal: No Tenderness to Palpation of Joints or Extremities Neurological: Cranial nerves II-XII grossly intact, Deep Tendon Reflexes 2+/4 and Symmetrical, Neuro grossly intact Psych/Mental Status: Normal Affect, Appropriate. Assessment & Plan Assessment/Plan (1) Infarction of spleen: PLAN: This 81-year-old female was admitted for left lower chest pain along with left upper abdominal pain associated with nausea and several bowel movements. No GI bleed. Acute splenic infarct: CT abdomen showed 5 cm splenic infarct with moderate splenomegaly with a small amount of free fluid. Patient was initially started on IV heparin drip then changed to Lovenox therapeutic dose. Patient has pain and tenderness. Patient denies history of coronary artery disease, A. fib or CHF. telemetry monitor more consistent of frequent PVCs and bigeminy. 03/16: Patient seen by Dr. Johnston yesterday. Dr. Carreon consulted for explaining infarct to elucidate etiology although it seems cryptogenic until now. Patient denies history of mesenteric ischemia or ischemic colitis. 03/17: Dexamethasone started yesterday by oncologist along with Protonix. LDH elevated 493, alkaline phosphatase 119. 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 Will need bone marrow biopsy as an outpatient in a steady state. The management plan discussed with the patient. Patient is getting education for Lovenox subcu injection. 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 Patient has been treated with radiation and Rituxan. Patient follows Dr. Albrecht and Dr. Gonzalez. Currently patient does not have cough or fever or sputum production symptoms of pneumonia. Chronic hypoxic respiratory failure secondary to asthma/radiation fibrosis -Patient has abnormal PFTs. Continue inhalers. Oxygen therapy to keep pulse ox more than 90%. -Continue inhalers -CTA was performed and shows no pulmonary emboli Other comorbidities include hypertension, hypothyroidism, insomnia: Patient on amlodipine, furosemide 20 mg daily and levothyroxine and trazodone. DVT prophylaxis On therapeutic dose of Lovenox CODE STATUS -Full code Clinical Impression(s) from Imaging Studies Abdomen/Pelvis CT 03/14/21 09:21 IMPRESSION: 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 Chest CTA 06/13/21 11:56 IMPRESSION: 1. No evidence of pulmonary embolus. 2. Soft tissue in the right apex which may represent scar however developing pneumonia cannot be excluded. There is a small left-sided effusion also present. Individualized dose optimization techniques were used for this CT. Charges/Coding Visit Charges Inpatient E&M: 18995 Subs Hosp L2
--- NOTE | 2021-03-17 17:35 | NURSING ---
AMBULATING PEÑA W/LILIANA, [employer]. O2@2L REQUIRED
[2021-03-17] MEDS: traZODone 50 MG Tablet 75 MG PO (21:15)
[2021-03-18] VITALS (11 sets, daily range): BP systolic 110–134; BP diastolic 51–109; PULSE 76–96; RESP 16; TEMP 36.3–36.7; O2SAT 92–98
[2021-03-18] MEDS: Levothyroxine 50 MCG Tablet PO (05:04)
[2021-03-18] MEDS: Enoxaparin 60 MG/0.6 ML Syringe 50 MG SC ×2 (05:04→17:47)
[2021-03-18 06:07] LABS: HEPATITIS B SURFACE AG Negative (Negative); Hepatitis A AB, Total Negative (Negative); Hepatitis A IgM Antibody Negative (Negative); Hepatitis B Core AB IgM Negative (Negative); Hepatitis B Core Ab Total Negative (Negative); Hepatitis C Ab <0.1 s/co ratio (0.0-0.9)
[2021-03-18 06:33] LABS: Anion Gap 4 (5-15); BUN 17 mg/dL (7-18); BUN/Creat Ratio 21.4 RATIO (10-20); Calcium,Total 9.1 mg/dL (8.5-10.1); Chloride 101 mmol/L (98-107); EST Glomerular Filtration Rate 73 mL/min (>60); Est Glom Filt Rate - Afr Amer 89 mL/min (>60); Estimated Creatinine Clearance 44.08 ml/min; Glucose 132 mg/dL (74-106); Potassium 4.2 mmol/L (3.5-5.1); Sodium Level 139 mmol/L (136-145)
[2021-03-18] MEDS: Albuterol 2.5 MG/3 ML VIAL.NEB. INHALATION (07:00)
--- NOTE | 2021-03-18 07:43 | PCM.PN.BLA ---
Progress Note Hematology oncology progress note: Her abdominal pain is much better today. No nausea or vomiting. She denies any rectal bleeding or melena. No shortness of breath. Afebrile, vital signs stable Abdominal exam is benign, spleen slightly enlarged but nontender. Assessment/Plan: 1) splenic infarct -Pain and symptoms improved -No sign infection Plan: -Continue anticoagulation with Lovenox 1m/kg injection sq every 12 hours -Outpatient pain management -Compazine as needed for nausea -Home health consult for follow-up 2) splenomegaly -Probably secondary to recurrent marginal zone B-cell lymphoma Plan: -Hepatitis serology pending 3) history of marginal zone B-cell lymphoma -There is no evidence of adenopathy on CT scans Plan: -Taper Decadron 2 mg twice daily x 2 days, Decadron 2 mg daily x 2 days and discontinue -PPI prophylaxis; Protonix 40mg daily -Outpatient bone marrow biopsy to confirm recurrent disease. -Follow-up with Dr. Gonzalez discuss treatment options if recurrent disease is confirmed on her bone marrow biopsy
[2021-03-18] MEDS: dexAMETHasone 4 MG Tablet 2 MG PO (08:59)
[2021-03-18] MEDS: Furosemide 20 MG Tablet PO (09:02)
[2021-03-18] MEDS: amLODIPine 5 MG Tablet PO (09:02)
[2021-03-18] MEDS: Pantoprazole Sodium 40 MG Tablet PO (09:03)
--- NOTE | 2021-03-18 09:28 | DS.PCM_ITS ---
Providers Date of Admission: 03/14/21 Primary Care Physician: Dr. Jose Grayson MD Consultations 03/15/21 08:35 Consult: General Surgery Routine Consulting Provider: Ezra Johnston Reason for Consult: splenic infarct about 5 cm. Left sided upper abdominal and chest pain EMERGENT Consult: No Notified: Yes Date Notified: 03/15/21 Time Notified: 10:56 Method of Notification: Text 03/16/21 07:22 Consult: Oncology/Hematology Routine Consulting Provider: Blanca Carreon Reason for Consult: splenic infarct with surrounding fluid, splenogmegaly EMERGENT Consult: No Notified: Yes Date Notified: 03/16/21 Time Notified: 07:22 Method of Notification: Verbal Reason For Visit: RIGHT UPPER LOBE PNEUMONIA, INFARCT SPLEEN Diagnosis Discharge Diagnosis (1) Infarction of spleen: Status: Acute Code(s): D73.5 - Infarction of spleen (2) Splenomegaly: Status: Acute Code(s): R16.1 - Splenomegaly, not elsewhere classified Medications at Discharge Home Medications trazodone 75 mg PO QHS 11/04/15 amlodipine 5 mg tablet 5 tab PO DAILY 02/15/20 levothyroxine 50 mcg tablet 50 mcg PO DAILY 02/15/20 tizanidine 2 mg tablet 2 mg PO QHS PRN #14 tab 02/15/20 fluticasone propion-salmeterol [AirDuo RespiClick] 1 inh INHALATION BID 03/14/21 furosemide [Lasix] 20 mg PO DAILY 03/14/21 dexamethasone 2 mg PO BIDCM #6 tab 03/18/21 enoxaparin 50 mg SUBCUT Q12@0600,1800 #60 ml 03/18/21 oxycodone 5 mg PO Q6H PRN 2 Days #10 tab 03/18/21 pantoprazole 40 mg PO DAILY #30 tab 03/18/21 sennosides-docusate sodium [Stool Softener-Stimulant Laxat] 2 tab PO DAILY PRN PRN #0 tab 03/18/21 Hospital Course Summary of Care Provided Hospital Course: This 81-year-old female was admitted for left lower chest pain along with left upper abdominal pain associated with nausea and several bowel movements. No GI bleed. Acute splenic infarct: CT abdomen showed 5 cm splenic infarct with moderate splenomegaly with a small amount of free fluid. Patient was initially started on IV heparin ip then changed to Lovenox therapeutic dose. Patient has pain and tenderness. Patient denies history of coronary artery disease, A. fib or CHF. training coordinator more consistent of frequent PVCs and bigeminy. General surgery Dr. Johnston was consulted for abdominal pain and a splenic infarct but seemed more hematologic therefore Dr. Carreon was consulted. Patient started on dexamethasone and Protonix. 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 Will need bone marrow biopsy as an outpatient in a steady state. The management plan discussed with the patient. The patient is discharged on Leonarda enox 1 mg/kg body weight every 12 hourly along with tapering dose of dexamethasone. 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 Patient has been treated with radiation and Rituxan. Patient follows Dr. Albrecht and Dr. Gonzalez. Currently patient does not have cough or fever or sputum production symptoms of pneumonia. Patient on 2 L of oxygen but she has refused oxygen at home in the past and she refuses now. Chronic hypoxic respiratory failure secondary to asthma/radiation fibrosis -Patient has abnormal PFTs. Continue inhalers. Oxygen therapy to keep pulse ox more than 90%. -Continue inhalers -CTA was performed and shows no pulmonary emboli Other comorbidities include hypertension, hypothyroidism, insomnia: Patient on amlodipine, furosemide 20 mg daily and levothyroxine and trazodone. DVT prophylaxis On therapeutic dose of Lovenox CODE STATUS -Full code Discharge medication reconciliation done. Discharge follow-up instructions completed. Discharge process discussed with the patient and all questions were answered to patient's satisfaction. Total time spent, exact 35 minutes on discharge meds reconciliation, examination, coordination of care with nurses and ancillary staff, review of imaging and blood test and discussion with the patient on follow-up instructions Physical Exam Narrative Seen and examined. Left upper quadrant abdominal pain is much improved. She ra phil 1-2/10 intensity. She wants oxycodone in case if she gets severe abdominal pain as needed but normally she does not take opioids. Physical exam General: Alert, Oriented x3, Cooperative HEENT: Atraumatic, PERRLA, EOMI, Normocephalic Oral: No Gingival or Mucosal Lesions/ Ulcerations Neck: Supple, No JVD, Negative Carotid Bruits Lungs: Air entry diminished in bilateral lung bases. No crepitation/rhonchi Cardiovascular: Irregular rhythm due to frequent PVCs. Normal S1, Normal S2, No murmurs Abdomen: Bowel Sounds Present, Soft, mild tenderness present over LUQ on deep palpation. Splenomegaly. : No renal angle tenderness. No suprapubic tenderness. Extremities: No edema, Capillary Refill Less than 3 Seconds Skin: No rashes, No breakdown Musculoskeletal: No Tenderness to Palpation of Joints or Extremities Neurological: Cranial nerves II-XII grossly intact, Deep Tendon Reflexes 2+/4 and Symmetrical, Neuro grossly intact Psych/Mental Status: Normal Affect, Appropriate. Weight / BMI Weight Weight: 119 lb Body Mass Index (BMI) 21.0 ABG / Lab / Microbiology Data Result Diagrams: 03/16/21 04:48 03/18/21 05:52 Laboratory: Laboratory Results - last 24 hr 03/18/21 05:52 Sodium 139 Potassium 4.2 Chloride 101 Carbon Dioxide 34.0 H Anion Gap 4 L BUN 17 Creatinine 0.80 Estim Creat Clear Calc 44.08 Est GFR (MDRD) Af Amer 89 Est GFR (MDRD) Non-Af 73 BUN/Creatinine Ratio 21.4 H Glucose 132 H Calcium 9.1 Microbiology: Microbiology 03/14/21 15:30 Mucosa - Nasopharyngeal SARS-CoV-2 Antigen (Rapid) - Final Meaningful Use Info Meaningful Use Diagnoses (Choose all that apply): None applicable Discharge Plan Admission Admit Date/Time: 03/14/21 16:53 Attending Provider: Stephen Pedersen Primary Care Provider: Jose Grayson Consulting Providers: Ezra Johnston ; Blanca Carreon Instructions Additional Instructions / Restrictions: Patient refused for oxygen even later. Probably due to old right apical scar. Discharge Orders/Prescriptions Prescriptions: New dexamethasone 2 mg Tablet 2 mg PO BIDCM Qty: 6 RF: 0 enoxaparin 60 mg/0.6 mL Syringe 50 mg subcut Q12@0600,1800 Qty: 60 RF: 0 sennosides-docusate sodium [Stool Softener-Stimulant Laxat] 8.6-50 mg Tablet 2 tab PO DAILY PRN PRN (Reason: CONSTIPATION) Qty: 0 RF: 0 pantoprazole 40 mg Tablet,Delayed Release (Dr/Ec) 40 mg PO DAILY Qty: 30 RF: 0 oxycodone 5 mg Tablet 5 mg PO Q6H PRN (Reason: pain (scale score 7-10)) 2 Days Qty: 10 RF: 0 Continued amlodipine 5 mg tablet 5 tab PO DAILY RF: 0 levothyroxine 50 mcg tablet 50 mcg PO DAILY RF: 0 tizanidine 2 mg tablet 2 mg PO QHS PRN (Reason: muscle spasticity) Qty: 14 RF: 0 trazodone 50 MG tablet 75 mg PO QHS RF: 0 fluticasone propion-salmeterol [AirDuo RespiClick] 232-14 mcg/actuation aerosol powdr breath activated 1 inh INHALATION BID RF: 0 furosemide [Lasix] 20 mg Tablet 20 mg PO DAILY RF: 0 Referrals / Follow Up: Jose Grayson MD [Primary Care Provider] - Within 2 Weeks Rajiv Gonzalez DO [STAFF PHYSICIAN] - 03/23/21 12:10 pm (for splenic infarct. need Bone marrow biopsy) Disposition Disposition (needs filled in before D/C Order can be placed): Home Health Service Charges/Coding Visit Charges Inpatient E&M: [id number] Disch Hosp
--- NOTE | 2021-03-18 09:45 | CASEMGMT ---
YAYA PAREKH updated that patient will be discharging on Lovenox injections. Per RN patient states she will not be able to do injections herself and wanting HHC. RN states that patient is not sure if daughter will be able to assist. YAYA PAREKH called Daughter Justyna and updated regarding Lovenox injections at discharge. Justyna states the she will be able to learn how to administer injections. YAYA PAREKH inquired if Justyna could come to hospital to have some teaching, Justyna stated yes around 5:30 this afternoon. Justyna requests that her be able to come into hospital and learn injection technique as well. YAYA PAREKH updated Justyna that [facility] will also be setup for additional education. Justyna voiced understanding. YAYA PAREKH updated RN Tamiko, charge nurse, and hospitalist regarding family coming to hospital to learn about Lovenox injection.
--- NOTE | 2021-03-18 11:30 | CASEMGMT ---
YAYA PAREKH in to discuss discharge planning with patient. RN IGLESIA updated patient that this RN CM discussed Lovenox injection teach with daughter and that daughter will be in this afternoon for education. Discussed [facility] with patient and she would like [facility] for additional education regarding Lovenox injectins. Patient was provided a list of [facility] providers including quality and resource use data and consistent with the patient?s preferred geographic region, medical needs, and insurance network. The patient's preferred provider is [facility]. YAYA PAREKH will send referral to [facility]. CM to continue to follow this patient and plan for a safe discharge.
--- NOTE | 2021-03-18 13:29 | CASEMGMT ---
RN CM sent referral to [facility] and awaiting call back. CM to continue to follow this patient and plan for a safe discharge.
--- NOTE | 2021-03-18 13:43 | CASEMGMT ---
Addendum entered by Argentina Garza 03/18/21 14:23: YAYA PAREKH called and scheduled appt with Dr. Gonzalez, oncologist to follow-up regarding Lovenox order. Patient has appointment with Dr. Gonzalez on 03/23/21 1210. YAYA PAREKH also received call back from [facility] and they are able to accept the patient with a Monday start of care. YAYA PAREKH called and updated anabelle Jansen. Justyna is okay with Monday start of care. YAYA PAREKH also updated with appt time with Dr. Gonzalez and instructed to ask [facility] for 5 day supply of Lovenox prescriptions. Justyna voiced understanding and had no further questions or concerns at this time. YAYA PAREKH called [facility] and confirmed acceptance and that family was okay with Monday start of care. Original Note: YAYA PAREKH called [facility] to inquire about cost of Lovenox. Cost for 30day supply is $368. YAYA PAREKH inquired if patient could request partial fill of prescription, [facility] stated yes. Medication is being ordered but they do have dose that they can fill for in the AM till medication arrives. YAYA PAREKH will update daughter, Justyna.
[2021-03-18 13:53] LABS: Hep B Surface Antibodies Non Reactive (.)
[2021-03-18] MEDS: dexAMETHasone 2 MG TABLET PO (17:40)
--- NOTE | 2021-03-19 15:32 | CASEMGMT ---
YAYA PAREKH Discharge Follow-up Phone Call: JAIRO: Nita Strata: 3 Call Date: 03/19/21 Discharge Date: 03/18/21 Time of Call: 1530 Duration: 3 min Admitting Diagnosis: splenic infarct YAYA PAREKH completed follow-up phone call after recent hospitalization. YAYA PAREKH called patient's daughter as she was assisting with care. Daughter states that patient is having a little pain but took her pain medication. Justyna was able to administer injection without issues. Patient was able to fill prescriptions without any issues. Justyna had no further questions or concerns at this time.
== END 2021-03-18 18:04 | disposition home health service (06) | DRG 815 ==
LOC: ED 14:59 → MS3 15:48
PROVIDERS: Internal Medicine Hematology & Oncology; Admitting Provider Internal Medicine; Emergency Provider Emergency Medicine; PCP Family Medicine; Visit Provider Internal Medicine
DX: D73.5 Infarction of spleen (principal); J96.11 Chronic respiratory failure with hypoxia; J70.1 Chronic and other pulmonary manifestations due to radiation; C85.90 Non-Hodgkin lymphoma, unspecified, unspecified site; Y84.2 Radiological procedure and radiotherapy as the cause of abnormal reaction of the patient, or of later complication, without mention of misadventure at the time of the procedure; R16.1 Splenomegaly, not elsewhere classified; R19.7 Diarrhea, unspecified; D69.6 Thrombocytopenia, unspecified; E03.9 Hypothyroidism, unspecified; G89.29 Other chronic pain; I10 Essential (primary) hypertension; I25.2 Old myocardial infarction; I34.0 Nonrheumatic mitral (valve) insufficiency; J45.40 Moderate persistent asthma, uncomplicated; M19.90 Unspecified osteoarthritis, unspecified site; E87.6 Hypokalemia; I49.3 Ventricular premature depolarization; Z79.899 Other long term (current) drug therapy
CPT/HCPCS: 36415; 36600; 71275; 74177; 80048; 80053; 82803; 83605; 83615; 83690; 83735; 84100; 85025; 85610; 85730; 86704; 86705; 86706; 86708; 86709; 86803; 87340; 87426; 93306; 94640; 97161; 97165; 97802; 99251; 99285; Q9967; A4216; G0463; J0696; J2405

== ENCOUNTER 2021-03-21 00:46 | Emergency (ER) | payer MEDICARE, OTHER, SELFPAY ==
[2021-03-14 16:48] VITALS: BMI 21.0
[2021-03-21 00:51] VITALS: BP 167/90; PULSE 75; RESP 16; TEMP 36.2; O2SAT 95; BMI 21.7
--- NOTE | 2021-03-21 01:51 | EDS_ITS ---
HPI History of Present Illness Chief Complaint: Wound Narrative Narrative: 81-year-old female presenting for small punctate wound on her abdomen which will not stop bleeding. This is from Lovenox injections that she is now receiving because she has a splenic infarct. This was recently diagnosed and the patient was hospitalized. When she saw hematology they recommended starting her on this for the splenic infarct. It also appears that she is not in remission from lymphoma from the charting inpatient. Patient states that her last Lovenox shot she gave it just would not stop bleeding its not bleeding profusely is just a small study drip. Otherwise she feels fine. [facility] Medical History Arthritis Asthma Cancer Chronic neck and back pain Difficulty balancing Fatigue Hypertension Limb weakness Marginal zone lymphoma Mass of upper lobe of right lung Radiation adverse effect Shortness of breath Thyroid disease Home Medications trazodone 75 mg PO QHS 11/04/15 [History Last Taken 03/13/21 21:00] amlodipine 5 mg tablet 5 tab PO DAILY 02/15/20 [History Last Taken 03/14/21] levothyroxine 50 mcg tablet 50 mcg PO DAILY 02/15/20 [History Last Taken 03/14/21] tizanidine 2 mg tablet 2 mg PO QHS PRN #14 tab 02/15/20 [Rx Last Taken 03/13/21] fluticasone propion-salmeterol [AirDuo RespiClick] 1 inh INHALATION BID 03/14/21 [History Last Taken 03/14/21] furosemide [Lasix] 20 mg PO DAILY 03/14/21 [History Last Taken 03/13/21] dexamethasone 2 mg PO BIDCM #6 tab 03/18/21 [Rx Last Taken Unknown] enoxaparin 50 mg SUBCUT Q12@0600,1800 #60 ml 03/18/21 [Rx Last Taken Unknown] oxycodone 5 mg PO Q6H PRN 2 Days #10 tab 03/18/21 [Rx Last Taken Unknown] pantoprazole 40 mg PO DAILY #30 tab 03/18/21 [Rx Last Taken Unknown] sennosides-docusate sodium [Stool Softener-Stimulant Laxat] 2 tab PO DAILY PRN PRN #0 tab 03/18/21 [Rx Last Taken Unknown] Allergy/AdvReac Type Severity Reaction Status Date / Time ibuprofen Allergy Mild rash Verified 03/14/21 09:03 lisinopril [From Prinivil] Allergy Mild cough/scrathy Verified 03/14/21 09:03 throat losartan [From Cozaar] Allergy Mild cough/scratchy Verified 03/14/21 09:03 throat moxifloxacin [From Avelox] Allergy Mild GI Upset Verified 03/14/21 09:03 Family History Mother Diabetes Father Myocardial infarction Surgical History No pertinent past surgical history Social History household members: none Smoking Status: Never smoker alcohol intake: never substance use type: does not use ROS ROS ED Constitutional Constitutional ED: Denies fever(s) or subjective Eyes Eyes: Denies blurry vision or change in vision ENT ENT ED: Denies ear pain, rhinorrhea or sore throat Cardiovascular Cardiovascular: Denies chest pain or palpitations Respiratory/Chest Respiratory/Chest: Denies dyspnea Gastrointestinal Gastrointestinal: Denies nausea or vomiting Musculoskeletal Musculoskeletal: Denies arthralgias or myalgias Integumentary Reports other Details: Punctate wound on right lower abdomen ; Denies abscess or rash Neurologic Neurologic: Denies headache(s) or weakness EXAM Physical Exam Const Vital Signs: 03/21/21 00:51 03/21/21 04:04 Temperature 97.2 F L Temperature Source Temporal Pulse Rate 75 Respiratory Rate 16 16 Blood Pressure 167/90 H Blood Pressure Mean 115 Pulse Ox 95 Oxygen Delivery Method Room Air Positive well nourished General Appearance ED: NAD HEENT Reports moist mucous membranes Negative for trauma Eyes PERRL and EOMs intact bilaterally General Eye ED: Negative for pale conjunctiva Resp normal respiratory effort and clear to auscultation bilaterally Cardio regular rate and regular rhythm Neuro oriented x3 Sensorium / Orientation: alert Psych mental status grossly normal Skin Skin Narrative: Punctate wound on right lower abdomen noted with small drops of blood. MDM MDM MDM Narrative Medical decision making narrative: 81-year-old female presenting for a punctate wound which would not stop bleeding due to her Lovenox injection. She is on Lovenox currently because it was recommended to her for her splenic infarct recently diagnosed. On exam is punctate wound initially appears to be oozing. I did attempt to inject around the area with lidocaine with epinephrine at that point after stretching the skin it appeared more pulsatile. The lidocaine with epinephrine did not stop the bleeding. I did get some TXA applied it to her wound with a pressure dressing and the bleeding did stop. The patient and her daughter wish to know if they should continue to do Lovenox shots. Apparently her primary care physician just retired and she has not established with her new primary care physician because her appointment is upcoming. She sees Dr. Gonzalez next week and she is established with him but unfortunately he is not on-call. I spoke to Dr. Kenyon and discussed the patient's medical history and treatment. He stated that with her age and that size splenic infarct she would probably be fine on baby aspirin once a day. I then discussed this with the patient and her daughter who seemed confused that she was supposed to be on Lovenox and now she only needs to take aspirin. I did tell them that Dr. Kenyon said it would be safe to just use aspirin and that they could try this for 1 day given that she had the bleeding and then call Dr. Gonzalez on Monday to see if he wanted her to be on Lovenox still. Patient is amenable to this plan. She is discharged in stable condition. If bleeding returns I told her she may return to the ED for treatment. Impression: 1. Wound check Lab Data Attestation: I reviewed the patient's lab results. Discharge Plan Triage Chief Complaint: Wound ED Provider: Aris Quintana Dx/Rx/DC Orders Instructions: ED Wound Check (No Infection) Prescriptions: No Action amlodipine 5 mg tablet 5 tab PO DAILY RF: 0 levothyroxine 50 mcg tablet 50 mcg PO DAILY RF: 0 tizanidine 2 mg tablet 2 mg PO QHS PRN (Reason: muscle spasticity) Qty: 14 RF: 0 trazodone 50 MG tablet 75 mg PO QHS RF: 0 fluticasone propion-salmeterol [AirDuo RespiClick] 232-14 mcg/actuation aerosol powdr breath activated 1 inh INHALATION BID RF: 0 furosemide [Lasix] 20 mg Tablet 20 mg PO DAILY RF: 0 dexamethasone 2 mg Tablet 2 mg PO BIDCM Qty: 6 RF: 0 enoxaparin 60 mg/0.6 mL Syringe 50 mg subcut Q12@0600,1800 Qty: 60 RF: 0 sennosides-docusate sodium [Stool Softener-Stimulant Laxat] 8.6-50 mg Tablet 2 tab PO DAILY PRN PRN (Reason: CONSTIPATION) Qty: 0 RF: 0 pantoprazole 40 mg Tablet,Delayed Release (Dr/Ec) 40 mg PO DAILY Qty: 30 RF: 0 oxycodone 5 mg Tablet 5 mg PO Q6H PRN (Reason: pain (scale score 7-10)) 2 Days Qty: 10 RF: 0 Primary Care Provider: Jose Grayson Referrals: Jose Grayson MD [Primary Care Provider] - Disposition Disposition: Home, self care Discharge Date/Time: 03/21/21 04:07
[2021-03-21] MEDS: Lidocaine 1% /Epi 1:100 (20ml) 20 ML Vial INFILT (01:59)
[2021-03-21] MEDS: TRANEXAMIC ACID 1,000 MG/10 ML ML OPERA.SITE (02:22)
--- NOTE | 2021-03-21 02:24 | ED.RN ---
new ABD pad applied over top TXA cotton ball swab. then IV fluids to have pressure.
[2021-03-21 04:04] VITALS: RESP 16
== END 2021-03-21 04:07 | disposition home or self-care (01) ==
PROVIDERS: Emergency Provider Student in an Organized Health Care Education/Training Program; PCP Family Medicine
DX: S31.133A Puncture wound of abdominal wall without foreign body, right lower quadrant without penetration into peritoneal cavity, initial encounter (principal); D73.5 Infarction of spleen; X58.XXXA Exposure to other specified factors, initial encounter; Y93.9 Activity, unspecified; Y92.9 Unspecified place or not applicable; I10 Essential (primary) hypertension; E07.9 Disorder of thyroid, unspecified; M19.90 Unspecified osteoarthritis, unspecified site; J45.909 Unspecified asthma, uncomplicated; G89.29 Other chronic pain; Z85.72 Personal history of non-Hodgkin lymphomas; Z79.899 Other long term (current) drug therapy
CPT/HCPCS: 99282

== ENCOUNTER 2021-03-30 10:56 | Emergency (ER) | payer MEDICARE, OTHER, SELFPAY ==
[2021-03-30 10:57] VITALS: BP 141/67; PULSE 86; RESP 14; TEMP 37.4; O2SAT 94; BMI 20.8
--- NOTE | 2021-03-30 11:27 | CT_ITS ---
STUDY: CTA CHEST REASON FOR EXAM: Female, 81 years old. Chest pain RADIATION DOSAGE (If Supplied By Facility): CTDIvol = ( 8.09 ) mGy, DLP = ( 822.46 ) mGycm TECHNIQUE: The examination was performed with the intravenous administration of IV 100mL Isovue-370. Post-processing of the angiographic images was performed, with multiplanar reformation and 3D reconstruction. Individualized dose optimization techniques were used for this CT. COMPARISON: None. FINDINGS: Normal enhancement of the main pulmonary artery and right and left pulmonary arteries. Normal enhancement of the bilateral peripheral pulmonary arteries. There is no demonstrated pulmonary embolism. Normal thoracic aorta and visualized great vessels. There is no demonstrated aortic dissection. Normal heart and pericardium. There are calcifications of the coronary arteries. Normal mediastinum. Normal hilar regions. Normal visualized trachea and bronchi. Lungs are mildly hyperexpanded. There is underlying emphysema with bleb formation in both lung rg. Stable opacification in the right apex, likely scarring.. Normal pleura. Normal chest wall structures. There are degenerative changes of thoracic spine. Abdomen report on a separate study CT/CTA Chest W/WO Contrast IMPRESSION: No demonstrated PE, or thoracic aortic aneurysm or dissection Stable soft tissue density in the right apex, likely pleural thickening and scarring. Underlying emphysema Calcified coronary vessels Degenerative bony changes Electronically Signed: Zay Ernandez MD at 13:21 EDT , Service support ,
--- NOTE | 2021-03-30 11:28 | CT_ITS ---
STUDY: CT ABDOMEN AND PELVIS WITH CONTRAST REASON FOR EXAM: Female, 81 years old. Left upper quadrant pain RADIATION DOSAGE (If Supplied By Facility): CTDIvol = ( 8.09 ) mGy, DLP = ( 822.46 ) mGycm TECHNIQUE: Transaxial images were obtained from the dome of the diaphragm to the symphysis pubis without oral contrast. IV 100mL Isovue-370 was administered. Sagittal and coronal images were reconstructed. Individualized dose optimization techniques were used for this CT. COMPARISON: 03/14/2021 FINDINGS: Lung bases show underlying emphysema. No superimposed process. The visualized portions of the heart are within normal limits. Normal liver. Normal gallbladder and extrahepatic biliary system. There is stable splenomegaly, there are now 2 separate triangular low-density areas in the spleen, one anteriorly one posteriorly, both consistent with infarcts. Normal pancreas. Normal bilateral adrenal glands. Normal right kidney. Normal left kidney. Normal visualized stomach. Normal small intestine. Scattered colonic diverticulosis, particularly in the sigmoid colon, no acute diverticulitis. There is non-visualization of the appendix. There is diffuse atherosclerotic calcification of the abdominal aorta, without a demonstrated aneurysm. Normal inferior vena cava. Normal retroperitoneum. Normal urinary bladder. There is absence of the uterus consistent with a prior hysterectomy. Normal abdominal wall. There are diffuse degenerative changes of the visualized lumbar spine, and pelvis. CT/Abdomen/Pelvis W IV Cont ONLY IMPRESSION: Stable splenomegaly with now 2 separate triangular hypoattenuated areas in the spleen, one posteriorly, one anteriorly, both suspicious for infarcts. No free intraperitoneal fluid, air, or suspicious adenopathy Diffuse atherosclerosis Degenerative bony changes Electronically Signed: Zay Ernandez MD at 13:17 EDT , Service support ,
[2021-03-30 11:57] LABS: Absolute Lymphocyte Count 1.13 X10^3/uL (0.83-4.51); Absolute Neutrophil Count 10.5 X10^3/uL (2.0-7.7); Basophil# 0.06 X10^3/uL; Basophil% 0.5 % (0-1); Eosinophil# 0.02 X10^3/uL; Eosinophils% 0.2 % (0-5); Hematocrit 34.2 % (37-47); Hemoglobin 11.2 g/dL (12.0-15.0); Lymphocyte # 1.13 X10^3/ul (0.83-4.51); Lymphocyte % 8.7 % (19-41); Mean Corp Hgb Conc 32.7 g/dL (32-36); Mean Corpuscular Hgb 28.8 pg (27.0-32.0); Mean Corpuscular Volume 87.9 fL (81-99); Monocyte# 1.11 X10^3/uL; Monocyte% 8.5 % (0-10); NRBC Flagged by Analyzer 0 % (0-5); Neutrophil # 10.45 X10^3/uL (2.7-7.7); Neutrophil % 80.2 % (47-70); POSITIVE MORPHOLOGY YES; Platelet Count 159 K/mm3 (150-450); RBC Distribution Width CV 16.1 % (11.6-14.6); Red Blood Count 3.89 M/mm3 (4.2-5.4)
[2021-03-30] MEDS: Ondansetron 4 MG/2 ML Vial IV (11:57)
[2021-03-30] MEDS: Morphine 4 MG/ML Syringe IV (11:57)
[2021-03-30 12:00] LABS: Differential Indicated SCAN CRITERIA MET
[2021-03-30 12:13] LABS: ALB/GLOB Ratio 1.1 RATIO (0.9-2.4); AST(SGOT) 99 U/L (15-37); Alanine Aminotransfer ALT/SGPT 31 U/L (13-56); Albumin, Serum 3.7 g/dL (3.2-5.0); Alkaline Phosphatase 116 U/L (45-117); Anion Gap 9 (5-15); BUN 14 mg/dL (7-18); BUN/Creat Ratio 16.8 RATIO (10-20); Calcium,Total 8.9 mg/dL (8.5-10.1); Chloride 100 mmol/L (98-107); Creatinine, Serum 0.83 mg/dL (0.55-1.02); EST Glomerular Filtration Rate 70 mL/min (>60); Est Glom Filt Rate - Afr Amer 84 mL/min (>60); Estimated Creatinine Clearance 40.62 ml/min; Globulin 3.4 g/dL (2.2-4.2); Glucose 84 mg/dL (74-106); Lipase 179 U/L (73-393); Potassium 3.2 mmol/L (3.5-5.1); Protein, Total 7.1 g/dL (6.4-8.2); Sodium Level 139 mmol/L (136-145)
[2021-03-30 12:20] LABS: Lactic Acid 1.9 mmol/L (0.4-1.9)
[2021-03-30 12:33] LABS: Reactive Lymphocyte 1+
[2021-03-30 13:08] VITALS: BP 144/73; PULSE 83; RESP 16; O2SAT 93
--- NOTE | 2021-03-30 14:41 | EDS_ITS ---
HPI HPI - GI History of Present Illness Chief Complaint: Abd Pain Narrative Narrative: Patient presenting for evaluation secondary to abdominal pain. 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 Patient apparently has been dealing with issues from increased pain recently in the left upper quadrant. Patient had complications when she was on anticoagulation with Lovenox of bleeding and has only been on aspirin recently. Patient's primary care saw her today, and felt that she potentially needed repeat evaluation in the emergency department. Patient's PCP and oncologist recommended that she come to the ER. No fevers, no nausea or vomiting, no diarrhea. Patient has been on Colace to help alleviate constipation. Review of systems otherwise negative. 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 Radiation adverse effect Shortness of breath Thyroid disease Home Medications trazodone 75 mg PO QHS 11/04/15 [History Last Taken 03/13/21 21:00] amlodipine 5 mg tablet 5 tab PO DAILY 02/15/20 [History Last Taken 03/14/21] levothyroxine 50 mcg tablet 50 mcg PO DAILY 02/15/20 [History Last Taken 03/14/21] furosemide [Lasix] 20 mg PO DAILY 03/14/21 [History Last Taken 03/13/21] oxycodone 5 mg PO Q6H PRN 2 Days #10 tab 03/18/21 [Rx Last Taken Unknown] apixaban [Eliquis DVT-PE Treat 30D Start] 5 mg PO BID #74 tab 03/30/21 [Rx Last Taken Unknown] aspirin 81 mg PO DAILY 03/30/21 [History Last Taken Unknown] oxycodone 5 mg PO Q6H PRN 8 Days #30 tab 03/30/21 [Rx Last Taken Unknown] promethazine 25 mg PO Q6H PRN 03/30/21 [History Last Taken Unknown] vitamins A,C,N-xntr-vbuspi [Ocuvite Preservision] 2 tab PO BID 03/30/21 [History Last Taken Unknown] Allergy/AdvReac Type Severity Reaction Status Date / Time ibuprofen Allergy Mild rash Verified 03/30/21 10:57 lisinopril [From Prinivil] Allergy Mild cough/scrathy Verified 03/30/21 10:57 throat losartan [From Cozaar] Allergy Mild cough/scratchy Verified 03/30/21 10:57 throat moxifloxacin [From Avelox] Allergy Mild GI Upset Verified 03/30/21 10:57 Family History Mother Diabetes Father Myocardial infarction Surgical History No pertinent past surgical history Social History household members: none Smoking Status: Never smoker alcohol intake: never substance use type: does not use ROS ROS ED Constitutional Constitutional ED: Denies chills or fever(s) ENT ENT ED: Denies sore throat Cardiovascular Cardiovascular: Denies chest pain Respiratory/Chest Respiratory/Chest: Denies cough or dyspnea Gastrointestinal Gastrointestinal: Reports abdominal pain; Denies constipation, diarrhea or nausea Genitourinary Genitourinary ED: Denies dysuria, hematuria or urinary frequency Musculoskeletal Musculoskeletal: Denies myalgias Integumentary Denies rash Neurologic Neurologic: Denies paresthesias or weakness Psychiatric Psychiatric: Denies depression Endocrine Endocrinology: Denies polyuria Hematologic/Lymphatic Hematologic/Lymphatic: Denies easy bleeding or easy bruising Allergic/Immunologic Allergic/Immunologic ED: Denies urticaria EXAM Physical Exam Const Vital Signs: 03/30/21 10:57 03/30/21 13:08 Temperature 99.4 F H Temperature Source Temporal Pulse Rate 86 83 Respiratory Rate 14 16 Blood Pressure 141/67 H 144/73 H Blood Pressure Mean 91 96 Pulse Ox 94 93 Oxygen Delivery Method Room Air Room Air Positive well nourished and well developed General Appearance ED: well developed and NAD HEENT normocephalic and atraumatic Eyes EOMs intact bilaterally General Eye ED: Negative for pale conjunctiva or scleral icterus Neck no lymphadenopathy and supple Resp normal respiratory effort and clear to auscultation bilaterally Cardio regular rate, regular rhythm, no murmurs and peripheral pulses 2+ throughout GI non-distended GI Narrative: Left upper quadrant tenderness to palpation Palpation: soft and guarding; Negative for rigid or rebound tenderness present Back/Spine no CVA tenderness Extremity full ROM General Extremety ED: Negative for edema General Extremity: Negative for edema Neuro moves all extremities and no sensory deficits noted Sensorium / Orientation: alert, oriented to person, oriented to place and oriented to time Motor Exam: strength 5/5 throughout Psych mental status grossly normal Skin Rashes: no rashes MDM MDM MDM Narrative Medical decision making narrative: Patient presented secondary to worsening abdominal pain in the setting of a recent splenic infarct. IV established laboratory studies were obtained. Patient was noted to be somewhat elevated and her white blood cell count at 13.0 with a neutrophilic predominance at 80%. Chemistry shows mild hypokalemia at 3.2 with otherwise normal renal function. Lipase was unremarkable, liver panel unremarkable. CT abdomen and pelvis with a angiogram of the chest demonstrated no evidence of pulmonary embolism aneurysm or dissection, but does show areas that are concerning for the possibility of worsening or new infarct. Patient's pain was addressed to the emergency department with morphine and Zofran and she had significant pain control. I discussed her case with her oncologist, Dr. Gonzalez, and we are in agreement at this point that the patient is long as she has good pain control does not require admission but rather can be discharged on a course of Eliquis with continued pain control. I had a prolonged discussion with the patient and her daughter about this. They feel that the patient is okay for a trial of home care at this point. She will be sent home with Eliquis, and a repeat prescription for oxycodone. She understands signs and symptoms which to return. Patient was discharged in stable condition. Lab Data Labs: Laboratory Results - last 24 hr 03/30/21 03/30/21 03/30/21 11:44 11:44 11:44 WBC 13.0 H RBC 3.89 L Hgb 11.2 L Hct 34.2 L MCV 87.9 MCH 28.8 MCHC 32.7 RDW Std Deviation 51.0 H RDW Coeff of Yaneli 16.1 H Plt Count 159 MPV 9.0 Immature Gran % (Auto) 1.900 H Neut % (Auto) 80.2 H Lymph % (Auto) 8.7 L Peach % (Auto) 8.5 Eos % (Auto) 0.2 Baso % (Auto) 0.5 Absolute Neuts (auto) 10.5 H Absolute Lymphs (auto) 1.13 Nucleated RBC % 0 Reactive Lymphocytes 1+ Sodium 139 Potassium 3.2 L Chloride 100 Carbon Dioxide 30.0 Anion Gap 9 BUN 14 Creatinine 0.83 Estim Creat Clear Calc 40.62 Est GFR (MDRD) Af Amer 84 Est GFR (MDRD) Non-Af 70 BUN/Creatinine Ratio 16.8 Glucose 84 Lactic Acid 1.9 Calcium 8.9 Total Bilirubin 0.70 AST 99 H ALT 31 Alkaline Phosphatase 116 Total Protein 7.1 Albumin 3.7 Globulin 3.4 Albumin/Globulin Ratio 1.1 Lipase 179 Radiography Diagnostic Testing: Radiology Impression Chest CTA 03/30/21 11:27 IMPRESSION: No demonstrated PE, or thoracic aortic aneurysm or dissection Stable soft tissue density in the right apex, likely pleural thickening and scarring. Underlying emphysema Calcified coronary vessels Degenerative bony changes Electronically Signed: Zay Ernandez MD at 13:21 EDT , Service support , Abdomen/Pelvis CT 03/30/21 11:28 IMPRESSION: Stable splenomegaly with now 2 separate triangular hypoattenuated areas in the spleen, one posteriorly, one anteriorly, both suspicious for infarcts. No free intraperitoneal fluid, air, or suspicious adenopathy Diffuse atherosclerosis Degenerative bony changes Electronically Signed: Zay Ernandez MD at 13:17 EDT , Service support , Discharge Plan Triage Chief Complaint: Abd Pain ED Provider: Smooth Alfredo Dx/Rx/DC Orders Clinical Impression: Infarction of spleen Instructions: Abdominal Pain Prescriptions: New Eliuriahis DVT-PE Treat 30D Start 5 mg (74 tabs) tablets,dose pack 5 mg PO BID Qty: 74 RF: 0 oxycodone 5 mg tablet 5 mg PO Q6H PRN (Reason: pain) 8 Days Qty: 30 RF: 0 No Action amlodipine 5 mg tablet 5 tab PO DAILY RF: 0 levothyroxine 50 mcg tablet 50 mcg PO DAILY RF: 0 trazodone 50 MG tablet 75 mg PO QHS RF: 0 furosemide [Lasix] 20 mg Tablet 20 mg PO DAILY RF: 0 oxycodone 5 mg Tablet 5 mg PO Q6H PRN (Reason: pain (scale score 7-10)) 2 Days Qty: 10 RF: 0 promethazine 25 mg Tablet 25 mg PO Q6H PRN (Reason: Nausea) RF: 0 aspirin 81 mg Tablet 81 mg PO DAILY RF: 0 Ocuvite Preservision 7,160 unit- 113 mg-100 unit Tablet 2 tab PO BID RF: 0 Primary Care Provider: Jose Grayson Referrals: Jose Grayson MD [Primary Care Provider] - Rajiv Gonzalez DO [STAFF PHYSICIAN] - Disposition Disposition: Home, Self Care
[2021-03-30] MEDS: oxyCODONE 5 MG Tablet PO (15:22)
[2021-03-30 15:24] VITALS: BP 130/87; PULSE 87; RESP 16; O2SAT 97
== END 2021-03-30 15:25 | disposition home or self-care (01) ==
PROVIDERS: Emergency Provider Emergency Medicine; PCP Family Medicine
DX: D73.5 Infarction of spleen (principal); K59.00 Constipation, unspecified; E87.6 Hypokalemia; C85.90 Non-Hodgkin lymphoma, unspecified, unspecified site; I10 Essential (primary) hypertension; E07.9 Disorder of thyroid, unspecified; M19.90 Unspecified osteoarthritis, unspecified site; J45.909 Unspecified asthma, uncomplicated; G89.29 Other chronic pain; Z79.82 Long term (current) use of aspirin; Z79.899 Other long term (current) drug therapy
CPT/HCPCS: 71275; 74177; 80053; 83605; 83690; 85025; 96361; 96374; 96375; 99283; J7030; Q9967; A4216; J2405

== ENCOUNTER 2021-04-14 16:34 | Inpatient (IN) | payer MEDICARE, OTHER, SELFPAY ==
[2021-04-14] VITALS (8 sets, daily range): BP systolic 118–159; BP diastolic 49–86; PULSE 86–93; RESP 14–18; TEMP 36.4–37.1; O2SAT 91–100; BMI 20.5; BMI 20.7
--- NOTE | 2021-04-14 16:50 | EKG12_ITS ---
Test Reason : WEAKNESS Blood Pressure : / mmHG Vent. Rate : 086 BPM Atrial Rate : 086 BPM P-R Int : 118 ms QRS Dur : 082 ms QT Int : 376 ms P-R-T Axes : 087 090 075 degrees QTc Int : 449 ms Sinus rhythm with Premature atrial complexes Rightward axis Borderline ECG Confirmed by TACHO CASPER, JJ ([id number]), sports editor TIO KINNEY ([id number]) on 04/16/2021 9:24:58 AM Referred By: Brigitte Cooper Confirmed By:BLAZE TITUS MD
--- NOTE | 2021-04-14 16:50 | EX.ED.DYSGE1 ---
HPI History of Present Illness Chief Complaint: Weakness Detail of Chief Complaint: Patient with weakness for last 3 to 4 days Informant: patient and family Narrative Narrative: Patient presents to the emergency department with generalized weakness that started 3 to 4 days ago. Patient currently being treated for lymphoma and was seeing Dr. Rajiv Gonzalez today to sign paperwork for chemotherapy. Patient was noted to be quite weak and has been nauseated and cannot keep anything down. Patient is lost 10 pounds recently. Patient denies any chest pain or shortness of breath. She denies abdominal pain. She has history of hypertension. Patient has history of recent splenic infarcts and is on Eliquis currently. Prior similar symptoms: No PFSH [facility] Medical History (Updated 04/14/21 @ 19:[address] 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 Radiation adverse effect Shortness of breath Splenic infarct Thyroid disease Home Medications trazodone 75 mg PO QHS 11/04/15 [History Last Taken 03/13/21 21:00] amlodipine 5 mg tablet 5 tab PO DAILY 02/15/20 [History Last Taken 03/14/21] levothyroxine 50 mcg tablet 50 mcg PO DAILY 02/15/20 [History Last Taken 03/14/21] furosemide [Lasix] 20 mg PO DAILY 03/14/21 [History Last Taken 03/13/21] oxycodone 5 mg PO Q6H PRN 2 Days #10 tab 03/18/21 [Rx Last Taken Unknown] apixaban [Eliquis DVT-PE Treat 30D Start] 5 mg PO BID #74 tab 03/30/21 [Rx Last Taken Unknown] promethazine 25 mg PO Q6H PRN 03/30/21 [History Last Taken Unknown] vitamins A,C,X-dobh-ynjswh [Ocuvite Preservision] 2 tab PO BID 03/30/21 [History Last Taken Unknown] fluticasone propion-salmeterol inh INHALATION 04/14/21 [History Last Taken Unknown] prednisone 20 mg PO DAILY 04/14/21 [History Last Taken Unknown] Allergy/AdvReac Type Severity Reaction Status Date / Time ibuprofen Allergy Mild rash Verified 04/14/21 16:35 lisinopril [From Prinivil] Allergy Mild cough/scrathy Verified 04/14/21 16:35 throat losartan [From Cozaar] Allergy Mild cough/scratchy Verified 04/14/21 16:35 throat moxifloxacin [From Avelox] Allergy Mild GI Upset Verified 04/14/21 16:35 Family History Mother Diabetes Father Myocardial infarction Surgical History No pertinent past surgical history Social History household members: none Smoking Status: Never smoker alcohol intake: never substance use type: does not use ROS ROS ED Constitutional Constitutional ED: Reports systems reviewed and no addt'l complaints, except as documented; Denies body ache(s), change in weight or chills Eyes Eyes: Denies acute decrease in peripheral vision, change in vision, double vision or loss of vision ENT ENT ED: Reports none; Denies ear pain, lip swelling, loss taste/smell, neck pain, otalgia or sore throat Cardiovascular Cardiovascular: Reports none; Denies abdominal pain, chest pain with activity, leg edema, lightheadedness, palpitations, rapid heart rate or syncope Respiratory/Chest Respiratory/Chest: Reports none; Denies change in mental status, dry cough, dyspnea, hemoptysis, shortness of breath at rest or shortness of breath with exertion Gastrointestinal Gastrointestinal: Reports none, nausea and vomiting; Denies abdominal pain, change in stool character, diarrhea, hematemesis, hematochezia, melena or rectal bleeding Genitourinary Genitourinary ED: Reports none; Denies abdominal discomfort, anuria, dysuria, genital pain or polyuria Musculoskeletal Musculoskeletal: Reports none; Denies arthralgias, back pain, difficulty walking, extremity pain, muscle weakness or myalgias Integumentary Reports none; Denies abscess or rash Neurologic Neurologic: Reports none and other Details: Generalized weakness ; Denies abnormal gait, confusion, focal weakness, frequent falls, headache(s), loss of vision, numbness, paresthesias, radicular pain, vertigo or weakness Psychiatric Psychiatric: Reports systems reviewed and no addt'l complaints, except as documented and none; Denies behavioral changes, confusion, difficulty concentrating, hallucinations, suicidal ideation, tactile hallucinations or visual hallucinations Endocrine Endocrinology: Denies none, cold intolerance, excessive sweating, fatigue or heat intolerance Hematologic/Lymphatic Hematologic/Lymphatic: Reports none; Denies anemia, easy bleeding or easy bruising Allergic/Immunologic Allergic/Immunologic ED: Denies as per HPI, none, lip swelling, mouth swelling, throat swelling, tongue swelling or hives EXAM Physical Exam Const Vital Signs: 04/14/21 16:35 04/14/21 16:57 04/14/21 17:51 Temperature 97.6 F L Temperature Source Temporal Pulse Rate 88 89 86 Respiratory Rate 16 15 14 Blood Pressure 118/60 159/64 H Blood Pressure Mean 79 95 Pulse Ox 92 91 100 Oxygen Delivery Method Room Air Room Air Room Air Oxygen Flow Rate (L/min) 04/14/21 18:49 Temperature Temperature Source Pulse Rate 86 Respiratory Rate 18 Blood Pressure 147/49 H Blood Pressure Mean 81 Pulse Ox 98 Oxygen Delivery Method Nasal Cannula Oxygen Flow Rate (L/min) 2 Positive well nourished and well developed General Appearance ED: well developed and NAD HEENT Reports TM's clear and moist mucous membranes normocephalic and atraumatic; Negative for trauma or tenderness Tympanic Membrane ED: Yes TM's clear Eyes PERRL and EOMs intact bilaterally General Eye ED: Negative for pale conjunctiva or scleral icterus Neck no lymphadenopathy, supple and no JVD General: Negative for tenderness Chest Wall inspection of chest normal and palpation of chest normal Chest: Negative for tenderness Resp normal respiratory effort and clear to auscultation bilaterally Effort and Inspection: Negative for respiratory distress or pain with movement Auscultation: Negative for rhonchi, wheezes or diminished lung sounds Cardio regular rate, regular rhythm, S1 normal heart sound, S2 normal heart sound and no murmurs Peripheral Pulses: pulses 2+ throughout GI normal to inspection, nondistended, normoactive bowel sounds, soft to palpation, non-tender, non-distended and no masses Back/Spine no CVA tenderness and no thoracic nor lumbar tenderness Extremity normal to inspection Extremity Narrative: Patient has slight edema of both feet. General Extremety ED: Yes edema General Extremity: edema Neuro oriented x3, CN's II-XII intact bilaterally, no sensory deficits noted and gait normal Sensorium / Orientation: awake, alert, oriented to person, oriented to place and oriented to time Motor Exam: strength 5/5 throughout and strength abnormal Psych mental status grossly normal Skin no rashes or lesions noted and no wounds MDM MDM MDM Narrative Medical decision making narrative: Patient has a elevated white blood cell count compared to prior 2 weeks ago. Patient has signs of a UTI but no signs of sepsis. Elevation of the lactate is unclear although I suspect some of it may be dehydrational and she has had issues with splenic infarcts. Patient not having any abdominal pain currently therefore no imaging was performed. Patient on Eliquis currently. Case discussed with hospitalist will evaluate patient for admission. Patient was given IV fluids 30 cc/kg and started on Rocephin 1 g IV. Lab Data Attestation: I reviewed the patient's lab results. Labs: Laboratory Results - last 24 hr 04/14/21 04/14/21 04/14/21 16:55 16:55 16:55 WBC Not Reportable Corrected WBC 45.0 H* RBC 3.11 L Hgb 8.7 L Hct 28.6 L MCV 92.0 MCH 28.0 MCHC 30.4 L RDW Std Deviation 58.3 H RDW Coeff of Yaneli 18.0 H Plt Count 98 L MPV 9.9 Neut % (Auto) Not Reportable Absolute Neuts (auto) 37.4 H Absolute Lymphs (auto) 3.60 Total Counted 100 Neutrophils % (Manual) 57 Band Neutrophils % 16 H Lymphocytes % (Manual) 8 L Monocytes % (Manual) 3 Metamyelocytes % 12 H Myelocytes % 4 H Nucleated RBCs/100 WBC 5 Diff Path Review May foll Platelet Estimate SLT DEC RBC Morphology NORM C+C Sodium 134 L Potassium 4.6 Chloride 95 L Carbon Dioxide 25.0 Anion Gap 14 BUN 32 H Creatinine 1.37 H Estim Creat Clear Calc 24.61 Est GFR (MDRD) Af Amer 47 L Est GFR (MDRD) Non-Af 39 L BUN/Creatinine Ratio 23.4 H Glucose 114 H Lactic Acid 7.9 H* Calcium 9.2 Total Bilirubin 1.10 H AST 181 H ALT 43 Alkaline Phosphatase 152 H Total Protein 6.7 Albumin 3.7 Globulin 3.0 Albumin/Globulin Ratio 1.2 Lipase 73 Urine Color Urine Clarity Urine pH Ur Specific [place] Urine Protein Urine Glucose (UA) Urine Ketones Urine Occult Blood Urine Nitrite Urine Bilirubin Urine Urobilinogen Ur Leukocyte Esterase Urine RBC Urine WBC Ur Squamous Epith Cells Urine Bacteria Hyaline Casts Urine Mucus 04/14/21 18:00 WBC Corrected WBC RBC Hgb Hct MCV MCH MCHC RDW Std Deviation RDW Coeff of Yaneli Plt Count MPV Neut % (Auto) Absolute Neuts (auto) Absolute Lymphs (auto) Total Counted Neutrophils % (Manual) Band Neutrophils % Lymphocytes % (Manual) Monocytes % (Manual) Metamyelocytes % Myelocytes % Nucleated RBCs/100 WBC Diff Path Review Platelet Estimate RBC Morphology Sodium Potassium Chloride Carbon Dioxide Anion Gap BUN Creatinine Estim Creat Clear Calc Est GFR (MDRD) Af Amer Est GFR (MDRD) Non-Af BUN/Creatinine Ratio Glucose Lactic Acid Calcium Total Bilirubin AST ALT Alkaline Phosphatase Total Protein Albumin Globulin Albumin/Globulin Ratio Lipase Urine Color Yellow Urine Clarity Clear Urine pH 5.0 Ur Specific [place] 1.015 Urine Protein 15 H Urine Glucose (UA) Normal Urine Ketones Negative Urine Occult Blood 10 H Urine Nitrite Positive H Urine Bilirubin Negative Urine Urobilinogen Normal Ur Leukocyte Esterase 100 H Urine RBC 0 SEEN Urine WBC 25-50 SEEN Ur Squamous Epith Cells 0 SEEN Urine Bacteria 2+ Hyaline Casts 0-5 SEEN Urine Mucus 0 SEEN Radiography Chest X-Ray - ED: 1 View Diagnostic Testing: Radiology Impression Chest X-Ray 04/14/21 18:15 IMPRESSION: No acute radiographic abnormalities. COPD. Electronically Signed: Jasen Huerta MD at 18:45 EDT Tel , Service support , 1 view chest x-ray obtained interpreted by myself as no acute disease process. Radiology was in agreement. EKG Initial EKG: Comments: Sinus rhythm with a ventricular rate of 86 bpm with occasional PACs. Discharge Plan Triage Chief Complaint: Weakness ED Provider: Carson Rodriguez Dx/Rx/DC Orders Clinical Impression: Weakness, Acute UTI, Dehydration, Acidosis, lactic, Anemia Prescriptions: No Action amlodipine 5 mg tablet 5 tab PO DAILY RF: 0 levothyroxine 50 mcg tablet 50 mcg PO DAILY RF: 0 trazodone 50 MG tablet 75 mg PO QHS RF: 0 furosemide [Lasix] 20 mg Tablet 20 mg PO DAILY RF: 0 oxycodone 5 mg Tablet 5 mg PO Q6H PRN (Reason: pain (scale score 7-10)) 2 Days Qty: 10 RF: 0 promethazine 25 mg Tablet 25 mg PO Q6H PRN (Reason: Nausea) RF: 0 Ocuvite Preservision 7,160 unit- 113 mg-100 unit Tablet 2 tab PO BID RF: 0 Eliquis DVT-PE Treat 30D Start 5 mg (74 tabs) tablets,dose pack 5 mg PO BID Qty: 74 RF: 0 prednisone 20 mg tablet 20 mg PO DAILY RF: 0 fluticasone propion-salmeterol 232-14 mcg/actuation aerosol powdr breath activated INHALATION RF: 0 Primary Care Provider: Jose Grayson Referrals: Jose Grayson MD [Primary Care Provider] - Disposition Disposition: Acute Care Hospital [facility]
[2021-04-14] MEDS: 0.9% Normal Saline 1,000 ML 1000 ML IV (16:59)
[2021-04-14] MEDS: Ondansetron 4 MG/2 ML Vial IV (16:59)
--- NOTE | 2021-04-14 17:07 | ED.RN ---
pt pulse ox dropping to 82 when falling asleep. increase post waking up was slow. pt placed on 2 l to have increased to 99 %. dr. jewell aware
[2021-04-14 17:26] LABS: Hematocrit 28.6 % (37-47); Hemoglobin 8.7 g/dL (12.0-15.0); Mean Corp Hgb Conc 30.4 g/dL (32-36); Mean Platelet Vol. 9.9 fl (6.2-12.0); POSITIVE COUNT YES; POSITIVE DIFFERENTIAL YES; POSITIVE MORPHOLOGY YES; Platelet Count 98 K/mm3 (150-450); RBC Distribution Width SD 58.3 fl (35.1-43.9); Red Blood Count 3.11 M/mm3 (4.2-5.4)
[2021-04-14 17:27] LABS: ALB/GLOB Ratio 1.2 RATIO (0.9-2.4); AST(SGOT) 181 U/L (15-37); Alanine Aminotransfer ALT/SGPT 43 U/L (13-56); Albumin, Serum 3.7 g/dL (3.2-5.0); Alkaline Phosphatase 152 U/L (45-117); Anion Gap 14 (5-15); BUN 32 mg/dL (7-18); BUN/Creat Ratio 23.4 RATIO (10-20); Calcium,Total 9.2 mg/dL (8.5-10.1); Chloride 95 mmol/L (98-107); Creatinine, Serum 1.37 mg/dL (0.55-1.02); EST Glomerular Filtration Rate 39 mL/min (>60); Est Glom Filt Rate - Afr Amer 47 mL/min (>60); Estimated Creatinine Clearance 24.61 ml/min; Glucose 114 mg/dL (74-106); Lipase 73 U/L (73-393); Potassium 4.6 mmol/L (3.5-5.1); Protein, Total 6.7 g/dL (6.4-8.2); Sodium Level 134 mmol/L (136-145)
[2021-04-14 17:46] LABS: Lactic Acid 7.9 mmol/L (0.4-1.9)
[2021-04-14 18:06] LABS: Lymphocyte 8 % (19-41); Metamyelocyte 12 % (0-1); Monocyte 3 % (0-10); Myelocyte 4 % (0-0); Neutrophil-Band 16 % (0-5); Neutrophil-Segmented 57 % (47-70); Nucleated Red Bld Cells,Manual 5 % (0-5); Total Cells Counted 100 (MANUAL DIFF)
[2021-04-14 18:09] LABS: Differential Indicated MANUAL DIFF
[2021-04-14 18:10] LABS: Color, Urine Yellow (Yellow); Glucose, Dipstick Normal (Normal); Ketone-Dipstick Negative (Negative); Leukocyte Esterase-Dipstick 100 /ul (Negative); Mucous, Urine 0 SEEN /hpf (<or=2+); Nitrite-Dipstick Positive (Negative); Occult Blood-Urine 10 /ul (Negative); Protein-Dipstick 15 mg/dl (Negative); Red Blood Cells-Urine 0 SEEN /hpf (0-5); Specific Gravity, Urine 1.015 (1.002-1.030); Squamous Epithelial Cells - UA 0 SEEN /hpf (5-10); Urine Bilirubin Dipstick Negative (Negative); Urine Clarity Clear (Clear); Urine Urobilinogen Normal (Normal)
[2021-04-14 18:13] LABS: Platelet Estimate SLT DEC (ADEQ); Red Cell Morphology NORM C+C NORMAL (NORM C&C)
[2021-04-14 18:14] LABS: Absolute Neutrophil Count 37.4 X10^3/uL (2.0-7.7)
--- NOTE | 2021-04-14 18:15 | RAD_ITS ---
INDICATION: hypoxia EXAMINATION/TECHNIQUE: X-RAY - XR Chest 1 View COMPARISON: 11/04/2015. FINDINGS: Hyperinflated lungs. Chronic lung changes. Tortuous and calcified thoracic aorta. The heart is not enlarged. No pleural effusion or pneumothorax. Biapical pleural scarring. Degenerative changes of the thoracic spine. RAD/Chest 1 View IMPRESSION: No acute radiographic abnormalities. COPD. Electronically Signed: Jasen Huerta MD at 18:45 EDT Tel , Service support ,
[2021-04-14 18:16] LABS: Bacteria 2+ /hpf (None Seen); Hyaline Cast 0-5 SEEN /lpf (0-5); White Blood Cells 25-50 SEEN /hpf (0-5)
[2021-04-14] MEDS: Ceftriaxone 1 GM/50 ML BAG IV (19:01)
--- NOTE | 2021-04-14 19:27 | HP.PCM_ITS ---
Documented by User: Catrachita Young NP-C 04/14/21 20:00 HPI - General General Date of Admission: 04/14/21 Date of Service: 04/14/21 Chief Complaint: Weakness HPI Narrative BARBER WEBB, is a 81 F who presents with complaints of generalized weakness for the past 3 to 4 days. Patient states that she has also been nauseated and vomiting and unable to keep food down along with having diarrhea. Patient states that she has been seeing Dr. Gonzalez for lymphoma and was set to sign paperwork to start chemotherapy today. Patient denies fever, chills, shortness of breath, chest pain, cough, constipation. 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 Radiation adverse effect Shortness of breath Splenic infarct Thyroid disease Home Medications trazodone 75 mg PO QHS 11/04/15 [History Last Taken 03/13/21 21:00] amlodipine 5 mg tablet 5 tab PO DAILY 02/15/20 [History Last Taken 03/14/21] levothyroxine 50 mcg tablet 50 mcg PO DAILY 02/15/20 [History Last Taken 03/14/21] furosemide [Lasix] 20 mg PO DAILY 03/14/21 [History Last Taken 03/13/21] oxycodone 5 mg PO Q6H PRN 2 Days #10 tab 03/18/21 [Rx Last Taken Unknown] promethazine 25 mg PO Q6H PRN 03/30/21 [History Last Taken Unknown] vitamins A,C,S-xssh-vfzbkf [Ocuvite Preservision] 2 tab PO BID 03/30/21 [History Last Taken Unknown] apixaban [Eliquis DVT-PE Treat 30D Start] 5 mg PO BID 04/14/21 [History Last Taken 04/14/21] fluticasone propion-salmeterol inh INHALATION 04/14/21 [History Last Taken Unknown] prednisone 20 mg PO DAILY 04/14/21 [History Last Taken Unknown] Allergy/AdvReac Type Severity Reaction Status Date / Time ibuprofen Allergy Mild rash Verified 04/14/21 16:35 lisinopril [From Prinivil] Allergy Mild cough/scrathy Verified 04/14/21 16:35 throat losartan [From Cozaar] Allergy Mild cough/scratchy Verified 04/14/21 16:35 throat moxifloxacin [From Avelox] Allergy Mild GI Upset Verified 04/14/21 16:35 Family History Mother Diabetes Father Myocardial infarction Surgical History No pertinent past surgical history Social History household members: none Smoking Status: Never smoker alcohol intake: never substance use type: does not use ROS Constitutional Constitutional: Reports poor appetite, weakness and weight loss; Denies chills or fever(s) Cardiovascular Cardiovascular: Reports edema; Denies chest pain, dyspnea, syncope or tachypnea Respiratory/Chest Respiratory/Chest: Denies cough, dyspnea, portable oxygen @ home or tachypnea Gastrointestinal Gastrointestinal: Reports diarrhea, nausea and vomiting; Denies abdominal pain Genitourinary Genitourinary: Denies burning urination, flank pain, hematuria, urinary frequency, urinary hesitancy or urinary urgency Musculoskeletal Musculoskeletal: Denies back pain, joint pain, joint stiffness or joint swelling Integumentary Integumentary: Reports dry skin; Denies lesions, rash or wounds Neurologic Neurologic: Denies abnormal gait, abnormal speech, confusion, dizziness or focal weakness Psychiatric Psychiatric: Denies behavioral changes Endocrine Endocrinology: Denies cold intolerance or heat intolerance Hematologic/Lymphatic Hematologic/Lymphatic: Reports anemia Allergic/Immunologic Allergic/Immunologic: Reports none Vital Signs Vital Signs Vital Signs: 04/14/21 16:35 04/14/21 16:57 04/14/21 17:51 Temperature 97.6 F L Temperature Source Temporal Pulse Rate 88 89 86 Respiratory Rate 16 15 14 Blood Pressure 118/60 159/64 H Blood Pressure Mean 79 95 Pulse Ox 92 91 100 Oxygen Delivery Method Room Air Room Air Room Air Oxygen Flow Rate (L/min) 04/14/21 18:49 Temperature Temperature Source Pulse Rate 86 Respiratory Rate 18 Blood Pressure 147/49 H Blood Pressure Mean 81 Pulse Ox 98 Oxygen Delivery Method Nasal Cannula Oxygen Flow Rate (L/min) 2 Weight Weight: 112 lb Body Mass Index (BMI) 20.5 Physical Exam Const alert, oriented x3 and no apparent distress Eyes conjunctivae normal and no scleral icterus Neck full ROM, supple and no JVD Chest inspection of chest normal Resp normal respiratory effort, normal air movement, no use of accessory muscles and clear to auscultation bilaterally Cardio regular rate, regular rhythm, S1 normal heart sound and no murmurs Peripheral Pulses: pulses 2+ throughout GI normal to inspection, nondistended, normoactive bowel sounds, soft to palpation and non-tender Extremity normal to inspection, full ROM, normal capillary refill and no clubbing, cyanosis or edema Skin no rashes or lesions noted, no wounds and skin turgor normal Neuro oriented x3, moves all extremities, no focal motor deficits and no sensory deficits noted Psych mental status grossly normal, thought process normal, cooperative and affect normal Results Lab / Micro Data Result Diagrams: 04/14/21 16:55 04/14/21 16:55 Labs: Laboratory Results - last 24 hr 04/14/21 16:55: WBC Not Reportable, Corrected WBC 45.0 H*, RBC 3.11 L, Hgb 8.7 L , Hct 28.6 L, MCV 92.0, MCH 28.0, MCHC 30.4 L, RDW Std Deviation 58.3 H, RDW Coeff of Yaneli 18.0 H, Plt Count 98 L, MPV 9.9, Neut % (Auto) Not Reportable, Absolute Neuts (auto) 37.4 H, Absolute Lymphs (auto) 3.60, Total Counted 100, Neutrophils % (Manual) 57, Band Neutrophils % 16 H, Lymphocytes % (Manual) 8 L, Monocytes % (Manual) 3, Metamyelocytes % 12 H, Myelocytes % 4 H, Nucleated RBCs/100 WBC 5, Diff Path Review May foll, Platelet Estimate SLT DEC, RBC Morphology NORM C+C 04/14/21 16:55: Sodium 134 L, Potassium 4.6, Chloride 95 L, Carbon Dioxide 25.0, Anion Gap 14, BUN 32 H, Creatinine 1.37 H, Estim Creat Clear Calc 24.61, Est GFR (MDRD) Af Amer 47 L, Est GFR (MDRD) Non-Af 39 L, BUN/Creatinine Ratio 23.4 H, Glucose 114 H, Calcium 9.2, Total Bilirubin 1.10 H, AST 181 H, ALT 43, Alkaline Phosphatase 152 H, Total Protein 6.7, Albumin 3.7, Globulin 3.0, Albumin/Globulin Ratio 1.2, Lipase 73 04/14/21 16:55: Lactic Acid 7.9 H* 04/14/21 18:00: Urine Color Yellow, Urine Clarity Clear, Urine pH 5.0, Ur Specific Reader 1.015, Urine Protein 15 H, Urine Glucose (UA) Normal, Urine Ketones Negative, Urine Occult Blood 10 H, Urine Nitrite Positive H, Urine Bilirubin Negative, Urine Urobilinogen Normal, Ur Leukocyte Esterase 100 H, Urine RBC 0 SEEN, Urine WBC 25-50 SEEN, Ur Squamous Epith Cells 0 SEEN, Urine Bacteria 2+, Hyaline Casts 0-5 SEEN, Urine Mucus 0 SEEN Radiology Impression Chest X-Ray 04/14/21 18:15 IMPRESSION: No acute radiographic abnormalities. COPD. Electronically Signed: Jasen Huerta MD at 18:45 EDT Tel , Service support , Assessment & Plan Assessment/Plan (1) Acidosis, lactic: (2) Anemia: QUALIFIERS: Anemia type: unspecified type Qualified Code(s): D64.9 - Anemia, unspecified (3) Acute UTI: PLAN: 1. Acute urinary tract infection -Admit to PCU -White blood cell count 45,000, urinalysis protein 15, blood 10, + nitrite, with leukocyte esterase 125-50 white blood cells with 2+ bacteria. Rocephin initiated in ER will continue pending results of urine culture -Will trend white blood cell count daily with CBC -Strict intake and output -PT and OT eval and treat due to weakness 2. Lactic acidosis -Initial level 7.9 -Will repeat lactic acid level per protocol, patient received 1500 mL normal saline bolus in ER, will continue judicious IV fluid use for rehydration -Possibly secondary to UTI or lymphoma, however more likely related to UTI as the patient's lactic acid was normal at 1.9 on 03/30/2021 3. Acute anemia -Upon review of labs patient has had over a four-point drop in hemoglobin since 03/14/2021. Due to recent initiation of Eliquis for splenic infarcts there is concern for GI bleed. -Due to patient's report of digestive upset and diarrhea and recent initiation of anticoagulation will obtain an occult stool, C. difficile and enteric pathogen stool testing. -Will trend daily with CBC -Will type and screen, if patient hemoglobin drops below 7 would recommend blood transfusion 4. Lymphoma -Currently being managed by Dr. Gonzalez, patient has not began chemotherapy at this point. 5. Nausea and vomiting -Ongoing over the past 3 days patient has been unable to keep food or drinks down -Patient states she experienced this previously however it had been well controlled since Dr. Gonzalez changed her antiemetic to promethazine 2 to 3 weeks ago 6. Hypertension -Will continue amlodipine, will hold Lasix due to dehydration -Vital signs per Protocol, trend BP -As needed hydralazine ordered for systolic blood pressure greater than 160 7. Hypothyroidism -Continue levothyroxine DVT prophylaxis-SCDs only at this time until GI bleed can be ruled out This patient was seen by AVA Zavala under the supervision of Dr. Cooper. Documented by User: Dr. 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 Radiation adverse effect Shortness of breath Splenic infarct Thyroid disease Home Medications trazodone 75 mg PO QHS 11/04/15 [History Last Taken 03/13/21 21:00] amlodipine 5 mg tablet 5 tab PO DAILY 02/15/20 [History Last Taken 03/14/21] levothyroxine 50 mcg tablet 50 mcg PO DAILY 02/15/20 [History Last Taken 03/14/21] furosemide [Lasix] 20 mg PO DAILY 03/14/21 [History Last Taken 03/13/21] oxycodone 5 mg PO Q6H PRN 2 Days #10 tab 03/18/21 [Rx Last Taken Unknown] promethazine 25 mg PO Q6H PRN 03/30/21 [History Last Taken Unknown] vitamins A,C,L-gszr-otymcy [Ocuvite Preservision] 2 tab PO BID 03/30/21 [History Last Taken Unknown] apixaban [Eliquis DVT-PE Treat 30D Start] 5 mg PO BID 04/14/21 [History Last Taken 04/14/21] fluticasone propion-salmeterol inh INHALATION 04/14/21 [History Last Taken Unknown] prednisone 20 mg PO DAILY 04/14/21 [History Last Taken Unknown] Allergy/AdvReac Type Severity Reaction Status Date / Time ibuprofen Allergy Mild rash Verified 04/14/21 16:35 lisinopril [From Prinivil] Allergy Mild cough/scrathy Verified 04/14/21 16:35 throat losartan [From Cozaar] Allergy Mild cough/scratchy Verified 04/14/21 16:35 throat moxifloxacin [From Avelox] Allergy Mild GI Upset Verified 04/14/21 16:35 Family History Mother Diabetes Father Myocardial infarction Surgical History No pertinent past surgical history Social History household members: none Smoking Status: Never smoker alcohol intake: never substance use type: does not use Results Lab / Micro Data Result Diagrams: 04/14/21 16:55 04/14/21 16:55 Charges/Coding Addendum Addendum: Patient seen by Catrachita ESCALANTE under my supervision Patient is an 81-year-old female with a past medical history as outlined which includes recently diagnosed splenic infarcts for which she was started on Eliquis as well as recurrence of lymphoma for which she has been following up [facility] hematology oncology. Patient was admitted through the ED on 04/14/2021 with a complaint of generalized weakness about 3 to 4 days prior to admission with assisted nausea and vomiting and diarrhea. She does have a history of colitis and states her diarrhea has been the same as usual but she has not been able to eat or drink well at all. She denied any fever or chills, shortness of breath, chest pain, palpitations, dizziness or coughing but says she has been progressively getting weaker and weaker. As stated, she was recently diagnosed with splenic infarct after she resented with abdominal pain and was started on Eliquis. She had a bone marrow biopsy done and she was found to have recurrence of her lymphoma and so she has been following up with her oncologist. She went to the oncologist for start of chemotherapy today but due to her symptoms, she was sent into the ED. She denied any frequency of urination or burning with urination. O/E: Const alert, oriented x3 and no apparent distress Eyes conjunctivae normal and no scleral icterus Neck full ROM, supple and no JVD Chest inspection of chest normal Resp normal respiratory effort, normal air movement, no use of accessory muscles and clear to auscultation bilaterally Cardio regular rate, regular rhythm, S1 normal heart sound and no murmurs Peripheral Pulses: pulses 2+ throughout GI normal to inspection, nondistended, normoactive bowel sounds, soft to palpation and non-tender, spleen is enlarged and palpable Extremity normal to inspection, full ROM, normal capillary refill and no clubbing, cyanosis or edema Skin no rashes or lesions noted, no wounds and skin turgor normal Neuro oriented x3, moves all extremities, no focal motor deficits and no sensory deficits noted Psych mental status grossly normal, thought process normal, cooperative and affect normal On admission, WBC was markedly elevated at 45 and lactic acid was also 7.9. At the time I was reviewing her, patient was also tachypneic so she has SIRS 2 out of 4 criteria and urinalysis was also positive for UTI and so is the source of infection. She is therefore going to be managed for septic shock per lactic acid criteria likely due to pneumonia. Will hydrate patient with IV fluids. Start on IV ceftriaxone. Get blood cultures and urine cultures. Trend lactic acid. Send stool for enteric pathogens and C. difficile. Trend WBC as well. Consult ID in light of septic shock diagnosis. Already on Eliquis so no need for any further DVT prophylaxis. Rest as per AVA Cote's note which I have reviewed and endorsed. Code status: Patient and daughter counseled extensively about different types of CODE STATUS including full code, DNR CCA and DNR CCA. Patient elects to be DNRCCA no intubation. Total [id number] time 16 minutes. Visit Charges Inpatient E&M: 04217 Init Hosp L3 Procedures Hospitalists Procedures: 89840 Advncd Care Plan 30 Min
[2021-04-14 21:06] LABS: Reflex Lactate? Y
[2021-04-14] MEDS: 0.9% Normal Saline 1,000 ML 150 ML IV (21:12)
[2021-04-14 22:21] LABS: Lactic Acid 3.9 mmol/L (0.4-1.9)
[2021-04-14] MEDS: traZODone 50 MG Tablet 75 MG PO (22:33)
[2021-04-15] VITALS (12 sets, daily range): BP systolic 122–149; BP diastolic 61–73; PULSE 72–101; RESP 16–18; TEMP 36.6–36.9; O2SAT 96–99
[2021-04-15] MEDS: 0.9% Normal Saline 1,000 ML 150 ML IV ×3 (03:40→16:29)
[2021-04-15] MEDS: Ondansetron 4 MG/2 ML Vial IV (04:57)
[2021-04-15] MEDS: Levothyroxine 50 MCG Tablet PO (05:00)
[2021-04-15 05:36] LABS: Hematocrit 25.1 % (37-47); Hemoglobin 7.6 g/dL (12.0-15.0); Mean Corp Hgb Conc 30.3 g/dL (32-36); Mean Corpuscular Hgb 27.9 pg (27.0-32.0); Mean Corpuscular Volume 92.3 fL (81-99); POSITIVE COUNT YES; POSITIVE DIFFERENTIAL YES; POSITIVE MORPHOLOGY YES; Platelet Count 71 K/mm3 (150-450); RBC Distribution Width CV 17.9 % (11.6-14.6); RBC Distribution Width SD 58.4 fl (35.1-43.9); Red Blood Count 2.72 M/mm3 (4.2-5.4)
[2021-04-15 05:42] LABS: Differential Indicated MANUAL DIFF
[2021-04-15 06:12] LABS: Lymphocyte 11 % (19-41); Metamyelocyte 6 % (0-1); Monocyte 4 % (0-10); Myelocyte 3 % (0-0); Neutrophil-Band 13 % (0-5); Neutrophil-Segmented 62 % (47-70); Nucleated Red Bld Cells,Manual 6 % (0-5); Promyelocyte 1 % (0-0); Total Cells Counted 100 (MANUAL DIFF)
[2021-04-15 06:13] LABS: Absolute Lymphocyte Count 3.63 X10^3/uL (0.83-4.51); Absolute Neutrophil Count 24.8 X10^3/uL (2.0-7.7); Platelet Estimate MOD DEC (ADEQ); Red Cell Morphology NORM C+C NORMAL (NORM C&C)
[2021-04-15 06:30] LABS: ALB/GLOB Ratio 1.2 RATIO (0.9-2.4); AST(SGOT) 154 U/L (15-37); Alanine Aminotransfer ALT/SGPT 35 U/L (13-56); Alkaline Phosphatase 118 U/L (45-117); Anion Gap 9 (5-15); BUN 22 mg/dL (7-18); BUN/Creat Ratio 23.6 RATIO (10-20); Calcium,Total 7.7 mg/dL (8.5-10.1); Chloride 101 mmol/L (98-107); Creatinine, Serum 0.93 mg/dL (0.55-1.02); EST Glomerular Filtration Rate 61 mL/min (>60); Est Glom Filt Rate - Afr Amer 74 mL/min (>60); Estimated Creatinine Clearance 36.25 ml/min; Globulin 2.5 g/dL (2.2-4.2); Glucose 76 mg/dL (74-106); Potassium 4.1 mmol/L (3.5-5.1); Protein, Total 5.5 g/dL (6.4-8.2); Sodium Level 139 mmol/L (136-145)
[2021-04-15] MEDS: Albuterol 2.5 MG/3 ML VIAL.NEB. INHALATION ×3 (06:51→19:19)
[2021-04-15 06:59] LABS: Ferritin 125 ng/mL (8-252); Iron 121 ug/dL (50-170)
[2021-04-15] MEDS: predniSONE 10 MG Tablet PO (09:17)
[2021-04-15] MEDS: amLODIPine 5 MG Tablet PO (09:17)
[2021-04-15] MEDS: Multivitamins,Ther W-Minerals Tablet 1 TABLET PO (09:17)
[2021-04-15 10:03] LABS: International Normalized Ratio 1.7
[2021-04-15 10:04] LABS: Partial Thromboplast Time 32.2 Seconds (24.1-36.2)
[2021-04-15] MEDS: Haloperidol Lactate 5 MG/ML Vial 1 MG IV ×3 (10:20→23:59)
[2021-04-15] MEDS: 0.9% Saline Lock 10 ML Syringe IV (10:21)
[2021-04-15] MEDS: Heparin Injection (Vial) 5,000 UNIT/ML VIAL 4000 UNIT IV (10:22)
[2021-04-15] MEDS: HEPARIN/D5w 25,000 UNITS 25,000 UNITS/250 ML IV.SOLN. 8 UNITS IV (10:23)
--- NOTE | 2021-04-15 11:15 | CASEMGMT ---
RN CM Face to Face with patient for initial transition planning/care coordination assessment. RN CM introduced self and role at [facility]. Patient lying in bed, alert and oriented, daughter at bedside. Patient willing to participate in assessment and is able to answer all questions appropriately. Care providers, pharmacy, and demographics verified. Patient wishes to discharge home with resumption of HHC with [facility]. Patient states she has no further needs or concerns at this time. CM to follow for discharge planning needs that may arise. PCP: Kenan Specialists: Carlos, oncologist Preferred Pharmacy: [facility] Insurance: [employer], [employer] other Prescription Benefit: yes Living Will/HPOA: yes, daughter Justyna Galloway LNOK: , daughter, granddaugter Living Arrangements: Patient lives with in a condo with no steps to enter the home. Patient is independent for selfcare. Transportation: Daughter DME/HHC: Patient has cane, walker, and grab bars at home. Patient is active with [facility]. Disposition Plan: Patient to discharge home with resumption of HHC, family support, and follow-up plans in place. [place] GILBERTN, RN, CM
--- NOTE | 2021-04-15 12:39 | ONC.CONSULT ---
Assessment & Plan Assessment/Plan (1) Acidosis, lactic: Status: Acute Code(s): E87.2 - Acidosis (2) Anemia: Status: Acute Code(s): D64.9 - Anemia, unspecified Qualifiers: Anemia type: unspecified type Qualified Code(s): D64.9 - Anemia, unspecified (3) Acute UTI: Status: Acute Code(s): N39.0 - Urinary tract infection, site not specified (4) Puja marginal zone B-cell lymphoma: Status: Acute Code(s): C83.00 - Small cell B-cell lymphoma, unspecified site (5) Hypersplenism: Status: Acute Code(s): D73.1 - Hypersplenism (6) Splenic infarction: Status: Acute Code(s): D73.5 - Infarction of spleen (7) Thrombocytopenia: Status: Acute Code(s): D69.6 - Thrombocytopenia, unspecified Plan: In summary the patient is an 81-year-old female who has a past medical history significant for puja marginal zone lymphoma. More recently she developed hypersplenism with splenic infarction and recent bone marrow biopsy demonstrated low-level involvement by marginal zone lymphoma representing 5% of her cellular marrow. Cytogenetics reveal complex abnormalities. Admitted yesterday for ongoing nausea and inability to maintain oral intake. Worsening anemia and thrombocytopenia in the setting of sepsis and hypersplenism. GI bleed possible. Since she is in a monitored setting, would advise restarting anticoagulation with IV unfractionated heparin, rule out GI bleed and rotate back to apixaban therapy as soon as able. She will continue to receive hydration and empiric coverage for possible urosepsis. Please change to IV scheduled antiemetic therapy. Will continue to follow. HPI Consult Data Date of Service:: 04/15/21 PCP / Referring Provider: Dr. Jose Grayson MD Attending: Dr. Tara Saucedo DO Chief Complaint Chief Complaint: Puja marginal zone lymphoma History of Present Illness History of Present Illness: The patient is an 81-year-old female with a past medical history of puja marginal zone lymphoma. She was originally diagnosed with stage II disease in September 2005. She completed a course of single agent rituximab in October and November 2005. She subsequently received radiation to the right axilla and right lower cervical area. She was noted to have relapsed disease as evidenced by peripheral blood work in March 2012. She then received an 8-week course of rituximab and a subsequent course of rituximab in 2013 for relapsed disease. More recently she was admitted to [facility] on 03/2021 for complaints of left lower chest/left upper abdominal pain associated with nausea and diarrhea. CT of the abdomen pelvis revealed a 5 cm splenic infarct with moderate splenomegaly and a small amount of free fluid. She was anticoagulated with IV unfractionated heparin and transition to Lovenox. She was also started on dexamethasone and Protonix. She was discharged on 03/18/2021 and then presented to the ER late on Monday night with bleeding from one of the Lovenox injection sites. She was advised to stop Lovenox and start aspirin. She was seen in the office the following week and underwent a bone marrow biopsy on 03/24/2021. At the time of the scheduled visit with her PCP on 03/30 she was complaining of worsening left upper quadrant pain and nausea. She was directed back to the ER where a CT scan demonstrated a secondary of splenic infarction. At that time she was initiated on apixaban and discharged. She presented to the office yesterday for follow-up and plan for therapy. She was noted to have another 5 pound weight loss since she was seen in the week previously. She also had been taking oxycodone on a scheduled basis every 6 hours. She had no pain but had constant nausea as well as she had developed diarrhea characterized by usually 1-2 loose to watery bowel movements in the mornings. She is not had black stools or bloody stools. She was not able to keep anything down however and therefore was directed to the ER for admission. This morning she still complains of nausea. She has been ordered as needed oral antinausea medicine and has been receiving hydration. Apixaban was stopped for concerns of possible GI bleed as evidenced by declining hemoglobin. Advanced Directives Power of Organisational Psychologist: Yes Living Will: Yes FOR[facility]LY [facility] Medical History (Updated 04/15/21 @ 12:[address] Rajiv Gonzalez, DO) Arthritis Asthma Cancer Chronic neck and back pain Difficulty balancing Fatigue Hearing loss, left Hearing loss, right Hypertension Limb weakness Lymphoma Marginal zone lymphoma Mass of upper lobe of right lung Non-smoker Radiation adverse effect Shortness of breath Splenic infarct Thyroid disease Wears hearing aid in both ears Home Medications trazodone 75 mg PO QHS 11/04/15 [History Last Taken 04/13/21] amlodipine 5 mg tablet 5 tab PO DAILY 02/15/20 [History Last Taken 04/14/21] levothyroxine 50 mcg tablet 50 mcg PO DAILY 02/15/20 [History Last Taken 04/14/21] furosemide [Lasix] 20 mg PO DAILY 03/14/21 [History Last Taken 04/14/21] oxycodone 5 mg PO Q6H PRN 2 Days #10 tab 03/18/21 [Rx Last Taken 04/14/21] promethazine 25 mg PO Q6H PRN 03/30/21 [History Last Taken Unknown] vitamins A,C,Y-egwt-[id number] [Ocuvite Preservision] 2 tab PO BID 03/30/21 [History Last Taken 04/14/21] apixaban [Eliquis DVT-PE Treat 30D Start] 5 mg PO BID 04/14/21 [History Last Taken 04/14/21] fluticasone propion-salmeterol inh INHALATION 04/14/21 [History Last Taken Unknown] prednisone 20 mg PO DAILY 04/14/21 [History Last Taken 04/14/21] Allergy/AdvReac Type Severity Reaction Status Date / Time ibuprofen Allergy Mild rash Verified 04/14/21 16:35 lisinopril [From Prinivil] Allergy Mild cough/scrathy Verified 04/14/21 16:35 throat losartan [From Cozaar] Allergy Mild cough/scratchy Verified 04/14/21 16:35 throat moxifloxacin [From Avelox] Allergy Mild GI Upset Verified 04/14/21 16:35 Family History Mother Diabetes Father Myocardial infarction Surgical History No pertinent past surgical history Social History household members: none Smoking Status: Never smoker alcohol intake: never substance use type: does not use Physical Exam Const alert and oriented x3 Lymph Lymphatic: no lymphadenopathy noted Resp normal respiratory effort Cardio regular rhythm GI GI Narrative: She has tender splenomegaly. Vital Signs Temperature 98.0 F 04/15/21 08:15 Temperature Source Oral 04/15/21 08:15 Pulse Rate 101 H 04/15/21 08:15 Pulse Strength Normal (2+) 04/15/21 09:27 Respiratory Rate 18 04/15/21 08:15 Respiratory Effort Non-Labored 04/15/21 10:00 Respiratory Depth Normal 04/15/21 10:00 Respiratory Pattern Normal 04/15/21 10:00 Blood Pressure 149/61 H 04/15/21 08:15 Blood Pressure Mean 90 04/15/21 08:15 Blood Pressure Source Monitor 04/15/21 08:15 Blood Pressure Position Semi-Fowlers 04/15/21 08:15 Blood Pressure Location Right Arm 04/15/21 02:15 Pulse Ox 97 04/15/21 08:15 Oxygen Delivery Method Nasal Cannula 04/15/21 10:00 Oxygen Flow Rate (L/min) 2 04/15/21 10:00 Laboratory Results - last 24 hr 04/14/21 16:55: WBC Not Reportable, Corrected WBC 45.0 H*, RBC 3.11 L, Hgb 8.7 L, Hct 28.6 L, MCV 92.0, MCH 28.0, MCHC 30.4 L, RDW Std Deviation 58.3 H, RDW Coeff of Yaneli 18.0 H, Plt Count 98 L, MPV 9.9, Neut % (Auto) Not Reportable, Absolute Neuts (auto) 37.4 H, Absolute Lymphs (auto) 3.60, Total Counted 100, Neutrophils % (Manual) 57, Band Neutrophils % 16 H, Lymphocytes % (Manual) 8 L, Monocytes % (Manual) 3, Metamyelocytes % 12 H, Myelocytes % 4 H, Nucleated RBCs/100 WBC 5, Diff Path Review May foll, Platelet Estimate SLT DEC, RBC Morphology NORM C+C 04/14/21 16:55: Sodium 134 L, Potassium 4.6, Chloride 95 L, Carbon Dioxide 25.0, Anion Gap 14, BUN 32 H, Creatinine 1.37 H, Estim Creat Clear Calc 24.61, Est GFR (MDRD) Af Amer 47 L, Est GFR (MDRD) Non-Af 39 L, BUN/Creatinine Ratio 23.4 H, Glucose 114 H, Calcium 9.2, Total Bilirubin 1.10 H, AST 181 H, ALT 43, Alkaline Phosphatase 152 H, Total Protein 6.7, Albumin 3.7, Globulin 3.0, Albumin/Globulin Ratio 1.2, Lipase 73 04/14/21 16:55: Lactic Acid 7.9 H* 04/14/21 18:00: Urine Color Yellow, Urine Clarity Clear, Urine pH 5.0, Ur Specific [place] 1.015, Urine Protein 15 H, Urine Glucose (UA) Normal, Urine Ketones Negative, Urine Occult Blood 10 H, Urine Nitrite Positive H, Urine Bilirubin Negative, Urine Urobilinogen Normal, Ur Leukocyte Esterase 100 H, Urine RBC 0 SEEN, Urine WBC 25-50 SEEN, Ur Squamous Epith Cells 0 SEEN, Urine Bacteria 2+, Hyaline Casts 0-5 SEEN, Urine Mucus 0 SEEN 04/14/21 21:40: Blood Type O POSITIVE, Antibody Screen NEGATIVE 04/14/21 21:40: Lactic Acid 3.9 H* 04/15/21 04:58: WBC CHECK SERVICES CLERK, Corrected WBC 33.0 H*, RBC 2.72 L, Hgb 7.6 L, Hct 25.1 L, MCV 92.3, MCH 27.9, MCHC 30.3 L, RDW Std Deviation 58.4 H, RDW Coeff of Yaneli 17.9 H, Plt Count 71 L, MPV 11.0, Neut % (Auto) Not Reportable, Absolute Neuts (auto) 24.8 H, Absolute Lymphs (auto) 3.63, Total Counted 100, Neutrophils % (Manual) 62, Band Neutrophils % 13 H, Lymphocytes % (Manual) 11 L, Monocytes % (Manual) 4, Metamyelocytes % 6 H, Myelocytes % 3 H, Promyelocytes % 1 H, Nucleated RBCs/100 WBC 6 H, Diff Path Review May foll, Platelet Estimate MOD DEC, RBC Morphology NORM C+C 04/15/21 04:58: Sodium 139, Potassium 4.1, Chloride 101, Carbon Dioxide 29.0, Anion Gap 9, BUN 22 H, Creatinine 0.93, Estim Creat Clear Calc 36.25, Est GFR (MDRD) Af Amer 74, Est GFR (MDRD) Non-Af 61, BUN/Creatinine Ratio 23.6 H, Glucose 76, Calcium 7.7 L, Total Bilirubin 0.60, AST 154 H, ALT 35, Alkaline Phosphatase 118 H, Total Protein 5.5 L, Albumin 3.0 L, Globulin 2.5, Albumin/Globulin Ratio 1.2 04/15/21 04:58: Iron 121, Ferritin 125 04/15/21 09:40: PT 19.0 H, INR 1.7, APTT 32.2 Microbiology 04/14/21 18:00 Urine Catheter - Catheter Urine Culture - Preliminary GNR lactose sewing supervisor Diagnostic Data Chest X-Ray 04/14/21 18:15 IMPRESSION: No acute radiographic abnormalities. COPD. Electronically Signed: Jasen Huerta MD at 18:45 EDT Tel , Service support ,
--- NOTE | 2021-04-15 12:47 | NURSING ---
Returned daughters call. Provided patient update. Questions answered. Daughter verbalized understanding. Will be in this evening to visit.
--- NOTE | 2021-04-15 12:49 | PN.HOSP_ITS ---
Documented by User: Sandrita Barriga PLANT WIRE CHIEF, PLANT WIRE CHIEF-C 04/15/21 13:42 Subjective Subjective Patient seen and examined. Reports nausea, dry heaving. Denies emesis. Denies further diarrhea. Reports generalized abdominal tenderness. Denies significant abdominal pain. Denies fever, chills. Objective Data Objective Data Vital Signs: Vital Signs Temp Pulse Resp BP Pulse Ox 98.0 F 101 H 18 149/61 H 97 04/15/21 08:15 04/15/21 08:15 04/15/21 08:15 04/15/21 08:15 04/15/21 08:15 Oxygen Flow Rate (L/min) 2 Oxygen Delivery Method Nasal Cannula Weight: 118 lb 2.684 oz Body Mass Index (BMI) 20.7 Intake & Output: Intake and Output for Last 24 Hours 04/13/21 04/14/21 04/15/21 23:59 23:59 23:59 Intake Total 1550 / 1710 2157.5 / 2157.5 Balance 1550 / 1710 2157.5 / 2157.5 Lab / Micro Data Result Diagrams: 04/15/21 04:58 04/15/21 04:58 Labs: Laboratory Results - last 24 hr 04/14/21 16:55: WBC Not Reportable, Corrected WBC 45.0 H*, RBC 3.11 L, Hgb 8.7 L , Hct 28.6 L, MCV 92.0, MCH 28.0, MCHC 30.4 L, RDW Std Deviation 58.3 H, RDW Coeff of Yaneli 18.0 H, Plt Count 98 L, MPV 9.9, Neut % (Auto) Not Reportable, Ab solute Neuts (auto) 37.4 H, Absolute Lymphs (auto) 3.60, Total Counted 100, Neutrophils % (Manual) 57, Band Neutrophils % 16 H, Lymphocytes % (Manual) 8 L, Monocytes % (Manual) 3, Metamyelocytes % 12 H, Myelocytes % 4 H, Nucleated RBCs/100 WBC 5, Diff Path Review May foll, Platelet Estimate SLT DEC, RBC Morphology NORM C+C 04/14/21 16:55: Sodium 134 L, Potassium 4.6, Chloride 95 L, Carbon Dioxide 25.0, Anion Gap 14, BUN 32 H, Creatinine 1.37 H, Estim Creat Clear Calc 24.61, Est GFR (MDRD) Af Amer 47 L, Est GFR (MDRD) Non-Af 39 L, BUN/Creatinine Ratio 23.4 H, Glucose 114 H, Calcium 9.2, Total Bilirubin 1.10 H, AST 181 H, ALT 43, Alkaline Phosphatase 152 H, Total Protein 6.7, Albumin 3.7, Globulin 3.0, Albumin/Sybil bulin Ratio 1.2, Lipase 73 04/14/21 16:55: Lactic Acid 7.9 H* 04/14/21 18:00: Urine Color Yellow, Urine Clarity Clear, Urine pH 5.0, Ur Specific [place] 1.015, Urine Protein 15 H, Urine Glucose (UA) Normal, Urine Ketones Negative, Urine Occult Blood 10 H, Urine Nitrite Positive H, Urine Bilirubin Negative, Urine Urobilinogen Normal, Ur Leukocyte Esterase 100 H, Urine RBC 0 SEEN, Urine WBC 25-50 SEEN, Ur Squamous Epith Cells 0 SEEN, Urine Bacteria 2+, Hyaline Casts 0-5 SEEN, Urine Mucus 0 SEEN 04/14/21 21:40: Blood Type O POSITIVE, Antibody Screen NEGATIVE 04/14/21 21:40: Lactic Acid 3.9 H* 04/15/21 04:58: WBC PLANT WIRE CHIEF, Corrected WBC 33.0 H*, RBC 2.72 L, Hgb 7.6 L, Hct 25.1 L , MCV 92.3, MCH 27.9, MCHC 30.3 L, RDW Std Deviation 58.4 H, RDW Coeff of Yaneli 17.9 H, Plt Count 71 L, MPV 11.0, Neut % (Auto) Not Reportable, Absolute Neuts (auto) 24.8 H, Absolute Lymphs (auto) 3.63, Total Counted 100, Neutrophils % (Manual) 62, Band Neutrophils % 13 H, Lymphocytes % (Manual) 11 L, Monocytes % (Manual) 4, Metamyelocytes % 6 H, Myelocytes % 3 H, Promyelocytes % 1 H, Nucleated RBCs/100 WBC 6 H, Diff Path Review Candice ashford, Platelet Estimate MOD DEC, RBC Morphology NORM C+C 04/15/21 04:58: Sodium 139, Potassium 4.1, Chloride 101, Carbon Dioxide 29.0, Anion Gap 9, BUN 22 H, Creatinine 0.93, Estim Creat Clear Calc 36.25, Est GFR (MDRD) Af Amer 74, Est GFR (MDRD) Non-Af 61, BUN/Creatinine Ratio 23.6 H, Glucose 76, Calcium 7.7 L, Total Bilirubin 0.60, AST 154 H, ALT 35, Alkaline Phosphatase 118 H, Total Protein 5.5 L, Albumin 3.0 L, Globulin 2.5, Albumin/Globulin Ratio 1.2 04/15/21 04:58: Iron 121, Ferritin 125 04/15/21 09:40: PT 19.0 H, INR 1.7, APTT 32.2 Micro: Microbiology 04/14/21 18:00 Urine Catheter - Catheter Urine Culture - Preliminary GNR lactose clip loading machine adjuster Radiography Diagnostic Testing: Radiology Impression Chest X-Ray 04/14/21 18:15 IMPRESSION: No acute radiographic abnormalities. COPD. Electronically Signed: Jasen Huerta MD at 18:45 EDT Tel , Service support , Physical Exam Const alert, oriented x3 and no apparent distress Orientation / Consciousness: awake, oriented to person, oriented to place and oriented to time Nutritional Appearance: cachectic HEENT normocephalic Mouth: dry mucous membranes Eyes PERRL, EOMs intact bilaterally and conjunctivae normal Neck no lymphadenopathy Resp normal respiratory effort and clear to auscultation bilaterally Cardio regular rate, regular rhythm and no murmurs Peripheral Pulses: pulses 2+ throughout GI normal to inspection, nondistended, normoactive bowel sounds, non-tender and non-distended Extremity normal to inspection Skin no rashes or lesions noted Lesions: no lesions Rashes: no rashes Trauma: no lacerations or abrasions Neuro CN's II-XII intact bilaterally, no focal motor deficits, no sensory deficits noted and deep tendon reflexes 2+ bilaterally Psych mental status grossly normal and affect normal Assessment & Plan Assessment/Plan (1) Acute UTI: PLAN: 1. Acute UTI-IV Rocephin pending culture. Blood culture pending. 2. Lactic acidosis/SIRS-patient with leukocytosis and tachycardia on admission. Improved. Lactic acid improved. Suspect secondary to #1 as well as dehydration related to GI loss. 3. Acute anemia/thrombocytopenia-on heparin drip pending GI bleed rule out. If stool is negative for occult blood may transition back to apixaban for recent splenic infarct. Stool for occult blood pending. Trend CBC. Plan to transfuse for hemoglobin less than 7. Begin IV PPI. 4. Lymphoma, recurrence- Dr. Gonzalez consulted. 5. Recent splenic infarct-Heparin drip as noted above, Eliquis on hold. 6. Intractable nausea, vomiting-as needed antiemetics. Scheduled Haldol. 7. 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 Continue supplement oxygen to maintain O2 above 90%. Follows with pulmonary medicine as outpatient. On 2 L nasal cannula at baseline. 8. Hypertension-stable, on amlodipine. 9. Hypothyroidism-continue Synthroid. 10. Insomnia-on trazodone. DVT prophylaxis-Heparin drip This patient was seen by LAURA ConnC under the supervision of Dr. Saucedo. Documented by User: Dr. Tara Saucedo DO 04/15/21 17:52 Subjective Subjective This patient was seen in conjunction with Sandrita Barriga NP. The following is representation of my independent history and physical examination. See below for addendum to above documentation. Patient was seen this morning and reports that she has been miserable. She has had persistent nausea but no abdominal pain. I discussed with her that we were going to schedule IV nausea medication. She asks am I going to make it. Objective Data Lab / Micro Data Result Diagrams: 04/15/21 04:58 04/15/21 04:58 Physical Exam Const alert and oriented x3 Constitutional Narrative: Thin elderly white female lying in bed, appears miserable, nontoxic but looks sick Exam Limitations: no limitations HEENT head/scalp atraumatic Head and Scalp: normocephalic Mouth: dry mucous membranes Eyes PERRL, EOMs intact bilaterally and conjunctivae normal Neck supple, no JVD and no carotid bruits Neck Narrative: Trachea midline Resp normal respiratory effort, no retractions and no use of accessory muscles Resp Narrative: Few scattered crackles most notably in right upper lobe Auscultation: crackles Cardio regular rate, regular rhythm, S1 normal heart sound, S2 normal heart sound, no murmurs, no rub, no gallops, no clicks and no JVD GI normal to inspection, nondistended, normoactive bowel sounds, soft to palpation, non-tender and non-distended Extremity normal to inspection, full ROM and no clubbing, cyanosis or edema Peripheral Pulses: Yes pulses 2+ throughout Skin no rashes or lesions noted, no wounds, skin turgor normal, no jaundice, no petechiae and no mottling Neuro oriented x3, CN's II-XII intact bilaterally, moves all extremities and no focal motor deficits Neuro Narrative: Marked generalized weakness noted Sensorium / Orientation: awake, alert, oriented to person, oriented to place and oriented to time Speech: speech normal Psych Psych Narrative: Flat affect, depressed mood Assessment & Plan Assessment/Plan (1) Acute UTI: (2) Sepsis: (3) Puja marginal zone B-cell lymphoma: (4) Nausea & vomiting: (5) Splenic infarction: (6) Acidosis, lactic: (7) Anemia: QUALIFIERS: Anemia type: unspecified type Qualified Code(s): D64.9 - Anemia, unspecified PLAN: Assessment: Sepsis secondary to urinary tract infection Lactic acidosis Acute anemia PRASHANT Marked leukocytosis Severe malnutrition Thrombocytopenia Hypersplenism Intractable nausea and vomiting Poor p.o. 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 Gonzalez from oncology consulted--> Case discussed with him this morning -Suspect that the anemia is related to sepsis and recurrent lymphoma -Patient has had no melena or hematochezia and no hematemesis with vomiting -Guaiac stool -Heparin drip for reversibility and if hemoglobin stable and guaiac negative will restart Eliquis -Lactic acid resolved quickly with hydration -PRASHANT has resolved -Continue IV fluids for hydration while p.o. intake is poor -Once nausea improves start nutritional supplements -Haldol scheduled every 8 hours 1 mg for nausea -To new as needed's for nausea -UA is consistent with urinary tract infection--> culture is pending--> continue ceftriaxone -Patient has grown pansensitive Proteus and E. coli in the past but nothing recent -Blood cultures are pending -Patient meets criteria for severe malnutrition consult dietitian Charges/Coding Visit Charges Inpatient E&M: 92298 Subs Hosp L3
[2021-04-15 13:43] LABS: Pathologist Review Reviewed
[2021-04-15 13:43] LABS: Pathologist Review Reviewed
[2021-04-15] MEDS: Ensure Clear 120 ML Liquid PO (15:13)
--- NOTE | 2021-04-15 17:57 | NURSING ---
No stool this shift. Unable to obtain specimen for occult blood.
[2021-04-15 18:40] LABS: Partial Thromboplast Time 67.9 Seconds (24.1-36.2)
[2021-04-15] MEDS: traZODone 50 MG Tablet 75 MG PO (22:01)
[2021-04-15] MEDS: Ceftriaxone 1 GM/50 ML BAG IV (22:37)
[2021-04-16] VITALS (20 sets, daily range): BP systolic 130–150; BP diastolic 49–71; PULSE 82–116; RESP 18–28; TEMP 36.2–36.9; O2SAT 92–97
[2021-04-16] MEDS: 0.9% Saline Lock 10 ML Syringe IV ×5 (00:04→20:58)
[2021-04-16] MEDS: 0.9% Normal Saline 1,000 ML 150 ML IV ×2 (00:08→07:04)
[2021-04-16 00:44] LABS: Partial Thromboplast Time 82.8 Seconds (24.1-36.2)
[2021-04-16] MEDS: Levothyroxine 50 MCG Tablet PO (06:13)
[2021-04-16] MEDS: Haloperidol Lactate 5 MG/ML Vial 1 MG IV (06:13)
[2021-04-16 06:48] LABS: Hemoglobin 6.6 g/dL (12.0-15.0); Mean Corpuscular Hgb 28.4 pg (27.0-32.0); Mean Corpuscular Volume 94.8 fL (81-99); POSITIVE COUNT YES; POSITIVE DIFFERENTIAL YES; POSITIVE MORPHOLOGY YES; Platelet Count 71 K/mm3 (150-450); RBC Distribution Width CV 18.6 % (11.6-14.6); RBC Distribution Width SD 62.4 fl (35.1-43.9); Red Blood Count 2.32 M/mm3 (4.2-5.4)
[2021-04-16 06:50] LABS: Differential Indicated MANUAL DIFF
[2021-04-16] MEDS: Albuterol 2.5 MG/3 ML VIAL.NEB. INHALATION ×3 (06:55→18:52)
[2021-04-16 07:03] LABS: Partial Thromboplast Time 77.8 Seconds (24.1-36.2)
[2021-04-16 07:12] LABS: Anion Gap 15 (5-15); BUN 15 mg/dL (7-18); Calcium,Total 7.3 mg/dL (8.5-10.1); Chloride 104 mmol/L (98-107); Creatinine, Serum 0.83 mg/dL (0.55-1.02); EST Glomerular Filtration Rate 70 mL/min (>60); Est Glom Filt Rate - Afr Amer 84 mL/min (>60); Estimated Creatinine Clearance 40.62 ml/min; Glucose 64 mg/dL (74-106); Potassium 3.9 mmol/L (3.5-5.1); Sodium Level 139 mmol/L (136-145)
[2021-04-16 07:19] LABS: Absolute Lymphocyte Count 5.65 X10^3/uL (0.83-4.51); Absolute Neutrophil Count 24.9 X10^3/uL (2.0-7.7); Lymphocyte 15 % (19-41); Metamyelocyte 8 % (0-1); Monocyte 7 % (0-10); Myelocyte 3 % (0-0); Neutrophil-Band 6 % (0-5); Neutrophil-Segmented 60 % (47-70); Promyelocyte 1 % (0-0); Total Cells Counted 100 (MANUAL DIFF)
[2021-04-16 07:20] LABS: Corrected WBC 35.2 K/mm3 (4.4-11.0); Nucleated Red Bld Cells,Manual 7 % (0-5); Platelet Estimate MOD DEC (ADEQ); Red Cell Morphology NORM C+C NORMAL (NORM C&C)
[2021-04-16] MEDS: Furosemide 20 MG/2 ML VIAL IV ×2 (09:15→20:53)
[2021-04-16] MEDS: amLODIPine 5 MG Tablet PO (09:15)
[2021-04-16] MEDS: predniSONE 10 MG Tablet PO (09:15)
[2021-04-16] MEDS: Multivitamins,Ther W-Minerals Tablet 1 TABLET PO ×2 (09:15→17:21)
--- NOTE | 2021-04-16 10:01 | CASEMGMT ---
Per Dr. Saucedo, she would like palliative c/s on pt, possibly hospice. Miriam from palliative is already on floor and updated by Dr. Saucedo. CM to follow. Wilman JAVIER CM
[2021-04-16 10:16] LABS: Pathologist Review Reviewed
[2021-04-16] MEDS: Morphine 2 MG/ML Syringe IV (10:18)
[2021-04-16] MEDS: Haloperidol Lactate 5 MG/ML Vial IV ×3 (12:04→23:58)
--- NOTE | 2021-04-16 12:24 | PCM.CONS.P ---
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 Saucedo for symptoms related to puja marginal zone lymphoma. Currently struggling with nausea/vomiting and weight loss. Plan is as follows: 1) Nausea/vomiting/anorexia: Continue Haldol as ordered at discharge. Low dose should be less sedating. May consider addition of SSRI to assist with mood and appetite. Bleeding would have to be closely monitored due to increased risk. Olanzapine is also an option for nausea given at bedtime. 2)Dyspnea/anxiety/anemia/thrombocytopenia: Multifactorial cause due to low Hemoglobin and possible anxiety. If dyspnea does not improve with blood transfusion, may consider low dose Hydroxyzine or Ativan PRN. May need home Oxygen before discharge.Will need routine surveillance of CBC and iron levels that is typically done by Oncology. 3) Lymphoma: Palliative will monitor for pain and other symptoms related to treatment and treat accordingly. Currently takes Oxycodone for pain. Palliative will also support patient emotionally and assist with transition to Hospice if necessary. Thank you for the opportunity to participate in this patient's care, please do not hesitate to contact [facility] with any further questions or concerns. Palliative direct line is [phone]. We will have follow up phone call after discharge to schedule follow up visit. Greater than 50% of F2F visit dedicated to education and counseling of palliative care services, medications, comorbid conditions and potential assistance with management, and plan of care moving forward. All questions asked and answered. Start time: 1100 End time: 1330 HPI Consult Data Date of Consult: 04/16/21 HPI Narrative HPI Narrative: BARBER WEBB, is a 81 F who was referred to Palliative care by Dr. Saucedo for symptoms related to puja marginal zone lymphoma. More recently she developed hypersplenism with splenic infarction and recent bone marrow biopsy demonstrated low-level involvement by marginal zone lymphoma representing 5% of her cellular marrow. Cytogenetics reveal complex abnormalities. (Oncology notes copied below for continuity of care) She was diagnosed with stage 3 disease in 2004 and completed a single course of rituximab in November 2005. She subsequently received radiation to the right axilla and right lower cervical area. She was noted to have relapsed disease as evidenced by peripheral blood work in March 2012. She then received an 8-week course of rituximab and a subsequent course of rituximab in 2013 for relapsed disease. More recently she was admitted to [facility] on 03/2021 for complaints of left lower chest/left upper abdominal pain associated with nausea and diarrhea. CT of the abdomen pelvis revealed a 5 cm splenic infarct with moderate splenomegaly and a small amount of free fluid. She was anticoagulated with IV unfractionated heparin and transition to Lovenox. She was also started on dexamethasone and Protonix. She was discharged on 03/18/2021 and then presented to the ER late on Monday night with bleeding from one of the Lovenox injection sites. She was advised to stop Lovenox and start aspirin. She was seen in the office the following week and underwent a bone marrow biopsy on 03/24/2021. At the time of the scheduled visit with her PCP on 03/30 she was complaining of worsening left upper quadrant pain and nausea. She was directed back to the ER where a CT scan demonstrated a secondary of splenic infarction. At that time she was initiated on apixaban and discharged. Patient presented to the emergency department with generalized weakness that started 3 to 4 days ago. Patient currently being treated for lymphoma and was seeing Dr. Rajiv Gonzalez on 04/14 to sign paperwork for chemotherapy. Patient has lost 10 pounds due to nausea/ vomiting and not keeping food down, Worsening anemia and thrombocytopenia in the setting of sepsis and hypersplenism. GI bleed possible. She is being treated with IV Rocephin for UTI. Past medical history listed below: Patient had voiced not wanting to treatments to current health status and feeling miserable. Spoke with daughter Jesusita on the phone and later in person in patient room.Was hopeful that antibiotics would clear infection and that patient would feel better and be able to resume treatment. Patient has Oxygen per nasal cannula at 2 liters and is minimally responsive due to dyspnea and fatigue. Hemoglobin is down to 6.6 with positive occult blood so discussion if for possible transfusion. Daughter in agreement for Palliative services and will be contacted by Liaison to sign consent forms. Patient lives with (who is active with [facility]) in a condo with no steps to enter the home. Patient has been independent for selfcare. Transportation: Daughter DME/HHC: Patient has cane, walker, and grab bars at home. Patient is active with [facility]. Patient to discharge home with resumption of HHC, family support, and follow-up plans in place. PCP is Dr. Grayson, Pharmacy is [facility], Specialist (Oncology) Dr. Gonzalez [facility] Medical History Arthritis Asthma Cancer Chronic neck and back pain Difficulty balancing Fatigue Hearing loss, left Hearing loss, right Hypertension Limb weakness Lymphoma Marginal zone lymphoma Mass of upper lobe of right lung Non-smoker Radiation adverse effect Shortness of breath Splenic infarct Thyroid disease Wears hearing aid in both ears Home Medications trazodone 75 mg PO QHS 11/04/15 [History Last Taken 04/13/21] amlodipine 5 mg tablet 5 tab PO DAILY 02/15/20 [History Last Taken 04/14/21] levothyroxine 50 mcg tablet 50 mcg PO DAILY 02/15/20 [History Last Taken 04/14/21] furosemide [Lasix] 20 mg PO DAILY 03/14/21 [History Last Taken 04/14/21] oxycodone 5 mg PO Q6H PRN 2 Days #10 tab 03/18/21 [Rx Last Taken 04/14/21] promethazine 25 mg PO Q6H PRN 03/30/21 [History Last Taken Unknown] vitamins A,C,I-tdvs-cissqw [Ocuvite Preservision] 2 tab PO BID 03/30/21 [History Last Taken 04/14/21] apixaban [Eliquis DVT-PE Treat 30D Start] 5 mg PO BID 04/14/21 [History Last Taken 04/14/21] fluticasone propion-salmeterol inh INHALATION 04/14/21 [History Last Taken Unknown] prednisone 20 mg PO DAILY 04/14/21 [History Last Taken 04/14/21] Allergy/AdvReac Type Severity Reaction Status Date / Time ibuprofen Allergy Mild rash Verified 04/14/21 16:35 lisinopril [From Prinivil] Allergy Mild cough/scrathy Verified 04/14/21 16:35 throat losartan [From Cozaar] Allergy Mild cough/scratchy Verified 04/14/21 16:35 throat moxifloxacin [From Avelox] Allergy Mild GI Upset Verified 04/14/21 16:35 Family History Mother Diabetes Father Myocardial infarction Surgical History No pertinent past surgical history Social History household members: none Smoking Status: Never smoker alcohol intake: never substance use type: does not use ROS Constitutional Constitutional: Reports anorexia, change in weight, fatigue, lethargy and poor appetite Cardiovascular Cardiovascular: Reports abdominal bloating, fatigue and nausea; Denies chest pain, chest pain at rest, chest pain with activity or cold extremities Respiratory/Chest Respiratory/Chest: Reports dyspnea; Denies change in mental status, cough, hemoptysis or nail bed cyanosis Gastrointestinal Gastrointestinal: Reports melena; Denies abdominal pain or change in bowel habits Genitourinary Genitourinary: Denies abdominal discomfort, burning urination or difficulty urinating Musculoskeletal Musculoskeletal: Reports none Integumentary Integumentary: Reports other Details: bruising. Large hematoma on right upper arm Psychiatric Psychiatric: Reports anxiety; Denies abnormal sleep pattern or cognitive impairment Hematologic/Lymphatic Hematologic/Lymphatic: Reports anemia and easy bleeding Physical Exam Const alert and oriented x3 General Appearance: cooperative and anxious Orientation / Consciousness: awake and lethargic Nutritional Appearance: cachectic HEENT normocephalic, head/scalp atraumatic and hearing grossly normal bilaterally Mouth: dry mucous membranes Resp clear to auscultation bilaterally Resp Narrative: dyspnea with conversation Effort and Inspection: symmetric chest movement Cardio regular rate, regular rhythm, S1 normal heart sound, S2 normal heart sound and no murmurs GI normal to inspection, nondistended, normoactive bowel sounds, soft to palpation and non-tender Extremity normal to inspection, full ROM and normal capillary refill Neuro CN's II-XII intact bilaterally, no focal motor deficits and no sensory deficits noted Psych mental status grossly normal
--- NOTE | 2021-04-16 13:34 | PN.HOSP_ITS ---
Documented by User: Sandrita Barriga ASSEMBLY MACHINE OFFBEARER, ASSEMBLY MACHINE OFFBEARER-C 04/16/21 13:52 Subjective Subjective Patient seen and examined. Nausea improved however patient still feels unwell and weak. Reports anxiety, shortness of breath. Objective Data Objective Data Vital Signs: Vital Signs Temp Pulse Resp BP Pulse Ox 97.6 F L 100 18 147/51 H 94 04/16/21 09:00 04/16/21 12:46 04/16/21 12:46 04/16/21 09:00 04/16/21 09:00 Oxygen Flow Rate (L/min) 2 Oxygen Delivery Method Nasal Cannula Weight: 121 lb 14.65 oz Body Mass Index (BMI) 20.7 Intake & Output: Intake and Output for Last 24 Hours 04/14/21 04/15/21 04/16/21 23:59 23:59 23:59 Intake Total 1550 / 1710 4621.5 / 4621.5 1660.52 / 1660.52 Balance 1550 / 1710 4621.5 / 4621.5 1660.52 / 1660.52 Lab / Micro Data Result Diagrams: 04/16/21 06:00 04/16/21 06:00 Labs: Laboratory Results - last 24 hr 04/14/21 16:55: Diff Path Review Reviewed 04/14/21 21:40: Crossmatch See Detail 04/15/21 04:58: Diff Path Review Reviewed 04/15/21 17:55: APTT 67.9 H 04/16/21 00:15: APTT 82.8 H 04/16/21 06:00: WBC ASSEMBLY MACHINE OFFBEARER, Corrected WBC 35.2 H*, RBC 2.32 L, Hgb 6.6 L, Hct 22.0 L , MCV 94.8, MCH 28.4, MCHC 30.0 L, RDW Std Deviation 62.4 H, RDW Coeff of Yaneli 18.6 H, Plt Count 71 L, MPV 12.0, Neut % (Auto) Not Reportable, Absolute Neuts (auto) 24.9 H, Absolute Lymphs (auto) 5.65 H, Total Counted 100, Neutrophils % (Manual) 60, Band Neutrophils % 6 H, Lymphocytes % (Manual) 15 L, Monocytes % (Manual) 7, Metamyelocytes % 8 H, Myelocytes % 3 H, Promyelocytes % 1 H, Nucleat ed RBCs/100 WBC 7 H, Diff Path Review Reviewed, Platelet Estimate MOD DEC, RBC Morphology NORM C+C 04/16/21 06:00: Sodium 139, Potassium 3.9, Chloride 104, Carbon Dioxide 20.0 L, Anion Gap 15, BUN 15, Creatinine 0.83, Estim Creat Clear Calc 40.62, Est GFR (MDRD) Af Amer 84, Est GFR (MDRD) Non-Af 70, BUN/Creatinine Ratio 18.0, Glucose 64 L, Calcium 7.3 L 04/16/21 06:00: APTT 77.8 H Micro: Microbiology 04/15/21 04:25 Stool Enteric Bacteriology - Final 04/15/21 04:25 Stool C. difficile DNA Amplification - Final 04/16/21 04:25 Stool Stool Occult Blood ([facility]) - Final Occult Blood Positive 04/14/21 18:00 Urine Catheter - Catheter Urine Culture - Final Citrobacter freundii Physical Exam Const alert, oriented x3 and no apparent distress Orientation / Consciousness: awake, oriented to person, oriented to place and oriented to time Nutritional Appearance: cachectic HEENT normocephalic Mouth: dry mucous membranes Eyes PERRL, EOMs intact bilaterally and conjunctivae normal Neck no lymphadenopathy Resp clear to auscultation bilaterally Resp Narrative: Tachypneic Auscultation: diminished lung sounds Cardio regular rate, regular rhythm and no murmurs Peripheral Pulses: pulses 2+ throughout GI normal to inspection, nondistended, normoactive bowel sounds, non-tender and non-distended Extremity normal to inspection Skin no rashes or lesions noted Lesions: no lesions Rashes: no rashes Trauma: no lacerations or abrasions Neuro CN's II-XII intact bilaterally, no focal motor deficits, no sensory deficits noted and deep tendon reflexes 2+ bilaterally Psych mental status grossly normal and affect normal Assessment & Plan Assessment/Plan (1) Acute UTI: PLAN: 1. Acute UTI-IV Rocephin, culture growing citrobacter. Blood culture pending. 2. Lactic acidosis/SIRS-patient with leukocytosis and tachycardia on admission. Improved. Lactic acid improved. Suspect secondary to #1 as well as dehydration related to GI loss. 3. Acute anemia/thrombocytopenia-IV PPI. Stool for occult blood positive. Discussed plan of care with daughter who would like to hold off on scopes at this time. 2 units PRBC ordered. Trend CBC. 4. Lymphoma, recurrence- Dr. Gonzalez consulted. Patient's daughter amenable to palliative, hospice discussed as well. 5. Recent splenic infarct-Eliquis held on admission. Heparin drip discontinued due to worsening anemia. 6. Intractable nausea, vomiting-as needed antiemetics. Scheduled Haldol. Improved. 7. 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 Continue supplement oxygen to maintain O2 above 90%. Follows with pulmonary medicine as outpatient. On 2 L nasal cannula at baseline. 8. Hypertension-stable, on amlodipine. 9. Hypothyroidism-continue Synthroid. 10. Insomnia-on trazodone. DVT prophylaxis-pharmacologic prophylaxis on hold This patient was seen by LAURA ConnC under the supervision of Dr. Saucedo. Documented by User: Dr. Tara Saucedo DO 04/16/21 16:23 Subjective Subjective Patient seen in conjunction with Sandrita Barriga NP. The following is representation my independent history and exam. See below for addendum's to the above. Patient does report her nausea has improved. Her daughter was evidently concerned because of her sedation. We will decrease scheduled Haldol from 1 mg to 0.5 mg. Guaiac stool was positive but patient not wanting to undergo any p rocedures related to this. General surgery consult canceled. Patient is complaining of some dyspnea and had some Lasix this morning. Objective Data Lab / Micro Data Result Diagrams: 04/16/21 06:00 04/16/21 06:00 Physical Exam Const alert, oriented x3 and no apparent distress Constitutional Narrative: Thin elderly white female lying in bed, appears more comfortable today but having some tachypnea and some respiratory distress Orientation / Consciousness: awake, oriented to person, oriented to place and oriented to time Exam Limitations: no limitations Nutritional Appearance: cachectic HEENT normocephalic and head/scalp atraumatic Head and Scalp: normocephalic Eyes PERRL, EOMs intact bilaterally and no scleral icterus Eyes Narrative: Pale conjunctiva Neck full ROM, no lymphadenopathy and supple Neck Narrative: Trachea midline, no JVD Chest inspection of chest normal Resp normal air movement, no retractions, no use of accessory muscles and clear to auscultation bilaterally Resp Narrative: Tachypneic, few crackles at bases Auscultation: crackles and diminished lung sounds Cardio regular rate, regular rhythm, S1 normal heart sound, S2 normal heart sound, no murmurs, no rub, no gallops, no clicks and no JVD Peripheral Pulses: pulses 2+ throughout GI normal to inspection, nondistended, normoactive bowel sounds, soft to palpation, non-tender and non-distended Extremity normal to inspection, full ROM, normal capillary refill and no clubbing, cyanosis or edema Peripheral Pulses: Yes pulses 2+ throughout Skin no rashes or lesions noted, no wounds, skin turgor normal, no jaundice, no edith chiae and no mottling Skin Narrative: Pale skin, scattered ecchymosis Lesions: no lesions Rashes: no rashes Trauma: no lacerations or abrasions Neuro oriented x3, moves all extremities, no focal motor deficits and deep tendon reflexes 2+ bilaterally Neuro Narrative: Marked generalized weakness noted Sensorium / Orientation: awake and alert Speech: speech normal Psych mental status grossly normal, thought process normal and cooperative Psych Narrative: Affect is flat and mood is depressed Mood & Affect: depressed Assessment & Plan Assessment/Plan (1) Anorexia: (2) Nausea & vomiting: QUALIFIERS: Vomiting type: unspecified Vomiting Intractability: unspecified Qualified Code(s): R11.2 - Nausea with vomiting, unspecified (3) Sepsis: (4) Splenic infarction: (5) Puja marginal zone B-cell lymphoma: (6) Anemia: QUALIFIERS: Anemia type: unspecified type Qualified Code(s): D64.9 - Anemia, unspecified (7) GI bleed: (8) Thrombocytopenia: (9) Acute respiratory insufficiency: PLAN: Assessment: Sepsis secondary to urinary tract infection Lactic acidosis Acute hypoxic respiratory insufficiency Acute anemia GI bleed PRASHANT Marked leukocytosis Severe malnutrition Thrombocytopenia Hypersplenism Intractable nausea and vomiting Poor p.o. 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 -General surgery consult discontinued as patient is not interested in having invasive procedures done with regards to her GI bleed -Continue twice daily Protonix -Continue Haldol IV every 8 hours but decrease dose from 1 mg to 0.5 mg -Urine is growing Citrobacter that is sensitive to cefepime--> continue antibiotics -Blood cultures remain pending -Palliative care has evaluated the patient--> daughter has discussed the case both with us and with Dr. Gonzalez--> plan is to see how the patient responds in the next 24 hours and if still having significant symptoms despite adequate treatment of her UTI hospice consideration will be made more strongly Charges/Coding Visit Charges Inpatient E&M: [id number] [facility] L3
--- NOTE | 2021-04-16 14:04 | PN.ONC_ITS ---
Subjective Subjective Patient Earlier today. She was complaining of shortness of breath. She was tachycardic and tachypneic. IV fluids were stopped and she received diuresis. Urine culture Grew Citrobacter sensitive to ceftriaxone.Patient remains nauseated. She expressed to me this morning that she does not feel that she wants to undergo any further treatment for her lymphoma or invasive procedure. Discussed with her daughter. Unfortunately there has not been any clinical improvement with management of the urosepsis. Stool was Hemoccult positive. Patient declines endoscopy. She had further drop in hemoglobin. We discussed that given the aggressive nature of her lymphoma and comorbid conditions now including severe sepsis, her prognosis is very poor and it is unlikely her disease would respond to treatment given the complex cytogenetics abnormalities. We have decided to continue current management for another 24 hours or so and if no improvement then rotate to hospice care. Vital Signs Temperature 97.3 F L 04/16/21 13:55 Temperature Source Temporal 04/16/21 13:55 Pulse Rate 103 H 04/16/21 13:55 Pulse Strength Normal (2+) 04/16/21 08:20 Respiratory Rate 18 04/16/21 13:55 Respiratory Effort 04/16/21 08:20 Respiratory Depth Shallow 04/16/21 08:20 Respiratory Pattern Normal 04/16/21 12:46 Blood Pressure 132/56 H 04/16/21 13:55 Blood Pressure Mean 81 04/16/21 13:55 Blood Pressure Source Monitor 04/16/21 13:55 Blood Pressure Position Semi-Fowlers 04/16/21 13:55 Blood Pressure Location Left Arm 04/16/21 13:55 Pulse Ox 93 04/16/21 13:55 Oxygen Delivery Method Nasal Cannula 04/16/21 13:55 Oxygen Flow Rate (L/min) 2 04/16/21 13:55 Laboratory Results - last 24 hr 04/14/21 21:40: Crossmatch See Detail 04/15/21 17:55: APTT 67.9 H 04/16/21 00:15: APTT 82.8 H 04/16/21 06:00: WBC STRUCTURAL STEEL ENGINEER, Corrected WBC 35.2 H*, RBC 2.32 L, Hgb 6.6 L, Hct 22.0 L , MCV 94.8, MCH 28.4, MCHC 30.0 L, RDW Std Deviation 62.4 H, RDW Coeff of Yaneli 18.6 H, Plt Count 71 L, MPV 12.0, Neut % (Auto) Not Reportable, Absolute Neuts (auto) 24.9 H, Absolute Lymphs (auto) 5.65 H, Total Counted 100, Neutrophils % (Manual) 60, Band Neutrophils % 6 H, Lymphocytes % (Manual) 15 L, Monocytes % (Manual) 7, Metamyelocytes % 8 H, Myelocytes % 3 H, Promyelocytes % 1 H, Nucleated RBCs/100 WBC 7 H, Diff Path Review Reviewed, Platelet Estimate MOD DEC, RBC Morphology NORM C+C 04/16/21 06:00: Sodium 139, Potassium 3.9, Chloride 104, Carbon Dioxide 20.0 L, Anion Gap 15, BUN 15, Creatinine 0.83, Estim Creat Clear Calc 40.62, Est GFR (MDRD) Af Amer 84, Est GFR (MDRD) Non-Af 70, BUN/Creatinine Ratio 18.0, Glucose 64 L, Calcium 7.3 L 04/16/21 06:00: APTT 77.8 H Microbiology 04/15/21 04:25 Stool Enteric Bacteriology - Final 04/15/21 04:25 Stool C. difficile DNA Amplification - Final 04/16/21 04:25 Stool Stool Occult Blood ([facility]) - Final Occult Blood Positive 04/14/21 18:00 Urine Catheter - Catheter Urine Culture - Final Citrobacter freundii Diagnostic Data Chest X-Ray 04/14/21 18:15 IMPRESSION: No acute radiographic abnormalities. COPD. Electronically Signed: Jasen Huerta MD at 18:45 EDT Tel , Service support ,
[2021-04-16] MEDS: traZODone 50 MG Tablet 75 MG PO (21:43)
[2021-04-16] MEDS: Ceftriaxone 1 GM/50 ML BAG IV (22:25)
[2021-04-17] VITALS (7 sets, daily range): BP systolic 148–158; BP diastolic 58–75; PULSE 95–101; RESP 18–20; TEMP 36.1–36.6; O2SAT 94–95
[2021-04-17 05:56] LABS: Hematocrit 31.6 % (37-47); Hemoglobin 10.2 g/dL (12.0-15.0); Mean Corp Hgb Conc 32.3 g/dL (32-36); Mean Corpuscular Hgb 27.7 pg (27.0-32.0); Mean Corpuscular Volume 85.9 fL (81-99); POSITIVE COUNT YES; POSITIVE MORPHOLOGY YES; Platelet Count 30 K/mm3 (150-450); RBC Distribution Width CV 19.1 % (11.6-14.6); RBC Distribution Width SD 54.6 fl (35.1-43.9); Red Blood Count 3.68 M/mm3 (4.2-5.4)
[2021-04-17 06:02] LABS: Differential Indicated MANUAL DIFF; White Blood Count 25.5 K/mm3 (4.4-11.0)
[2021-04-17] MEDS: Levothyroxine 50 MCG Tablet PO (06:04)
[2021-04-17] MEDS: Haloperidol Lactate 5 MG/ML Vial IV ×2 (06:05→12:09)
[2021-04-17 06:22] LABS: Anion Gap 12 (5-15); BUN 20 mg/dL (7-18); BUN/Creat Ratio 23.6 RATIO (10-20); Calcium,Total 7.7 mg/dL (8.5-10.1); Chloride 102 mmol/L (98-107); Creatinine, Serum 0.85 mg/dL (0.55-1.02); EST Glomerular Filtration Rate 68 mL/min (>60); Est Glom Filt Rate - Afr Amer 82 mL/min (>60); Estimated Creatinine Clearance 39.66 ml/min; Glucose 91 mg/dL (74-106); Potassium 3.5 mmol/L (3.5-5.1); Sodium Level 138 mmol/L (136-145)
[2021-04-17 06:23] LABS: Absolute Lymphocyte Count 1.27 X10^3/uL (0.83-4.51); Absolute Neutrophil Count 19.6 X10^3/uL (2.0-7.7)
[2021-04-17 06:24] LABS: Blast 1 % (0-0); Lymphocyte 5 % (19-41); Metamyelocyte 3 % (0-1); Myelocyte 3 % (0-0); Neutrophil-Band 3 % (0-5); Neutrophil-Segmented 74 % (47-70); Promyelocyte 2 % (0-0)
[2021-04-17 06:25] LABS: Monocyte 9 % (0-10); Platelet Estimate MOD DEC (ADEQ); Red Cell Morphology NORM C+C NORMAL (NORM C&C)
[2021-04-17] MEDS: Albuterol 2.5 MG/3 ML VIAL.NEB. INHALATION (06:58)
[2021-04-17] MEDS: predniSONE 10 MG Tablet PO (08:44)
[2021-04-17] MEDS: amLODIPine 5 MG Tablet PO (08:45)
[2021-04-17] MEDS: Morphine 2 MG/ML Syringe IV ×2 (08:47→14:04)
--- NOTE | 2021-04-17 12:02 | DS.PCM_ITS ---
Documented by User: Sandrita Barriga NP, PROCESS CONTROLS TECHNICIAN-C 04/17/21 12:34 Providers Date of Admission: 04/14/21 Date of Discharge: 04/17/21 Primary Care Physician: Dr. Jose Grayson MD Consultations 04/15/21 07:12 Consult: Oncology/Hematology Routine Consulting Provider: Rajiv Gonzalez Reason for Consult: lymphoma EMERGENT Consult: No Notified: Yes Date Notified: 04/15/21 Time Notified: 07:13 Method of Notification: Verbal 04/16/21 09:51 Consult: Hospice / Palliative Care Routine Consulting Provider: [facility] Reason for Consult: Palliative, possible hospice transition EMERGENT Consult: No MD Notified: Yes Date Notified: 04/16/21 Time Notified: 09:51 Method of Notification: Verbal Reason For Visit: UTI, DEHYDRATION Diagnosis Discharge Diagnosis (1) Anorexia: Status: Acute Code(s): R63.0 - Anorexia (2) Nausea & vomiting: Status: Acute Code(s): R11.2 - Nausea with vomiting, unspecified Qualifiers: Vomiting Intractability: unspecified Vomiting type: unspecified Qualified Code(s): R11.2 - Nausea with vomiting, unspecified (3) Sepsis: Status: Acute Code(s): A41.9 - Sepsis, unspecified organism (4) Splenic infarction: Status: Acute Code(s): D73.5 - Infarction of spleen (5) Puja marginal zone B-cell lymphoma: Status: Acute Code(s): C83.00 - Small cell B-cell lymphoma, unspecified site (6) Anemia: Status: Acute Code(s): D64.9 - Anemia, unspecified Qualifiers: Anemia type: unspecified type Qualified Code(s): D64.9 - Anemia, unspecified (7) GI bleed: Status: Acute Code(s): K92.2 - Gastrointestinal hemorrhage, unspecified (8) Thrombocytopenia: Status: Acute Code(s): D69.6 - Thrombocytopenia, unspecified (9) Acute respiratory insufficiency: Status: Acute Code(s): R06.89 - Other abnormalities of breathing Medications at Discharge Home Medications trazodone 75 mg PO QHS 11/04/15 amlodipine 5 mg tablet 5 tab PO DAILY 02/15/20 levothyroxine 50 mcg tablet 50 mcg PO DAILY 02/15/20 furosemide [Lasix] 20 mg PO DAILY 03/14/21 oxycodone 5 mg PO Q6H PRN 2 Days #10 tab 03/18/21 promethazine 25 mg PO Q6H PRN 03/30/21 vitamins A,C,O-ufrr-rctysi 2 tab PO BID 03/30/21 fluticasone propion-salmeterol inh INHALATION 04/14/21 ciprofloxacin HCl 500 mg PO BID 4 Days #8 tab 04/17/21 haloperidol lactate 0.5 mg IV Q6 #0 ml 04/17/21 pantoprazole 40 mg PO BID #0 tab 04/17/21 prednisone 10 mg PO DAILYCM #0 tab 04/17/21 Hospital Course Operations None Procedures None Summary of Care Provided Minutes Spent on Discharge: 35 Hospital Course: Patient is an 81-year-old female admitted 04/14/2021 due to weakness. Due to functional decline, lymphoma recurrence and multiple comorbidities, patient and family requesting inpatient hospice unit. 1. Acute citrobacter UTI-IV Rocephin during admission. Oral Cipro discharge to complete course. Blood culture shows no growth so far. 2. Lactic acidosis/SIRS-patient with leukocytosis and tachycardia on admission. Improved. Lactic acid improved. Suspect secondary to #1 as well as dehydration related to GI loss. 3. Acute anemia/thrombocytopenia-on PPI. Stool for occult blood positive. S/P 2 units PRBC. Given hospice transition, no plans for further invasive testing. 4. Lymphoma, recurrence- Dr. Gonzalez consulted during admission. Hospice t ransition. 5. Recent splenic infarct-Eliquis held on admission. Heparin drip discontinued due to worsening anemia. 6. Intractable nausea, vomiting-as needed antiemetics. Scheduled Haldol. 7. 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 Continue supplement oxygen to maintain O2 above 90%. 8. Hypertension-stable, on amlodipine. 9. Hypothyroidism-continue Synthroid. 10. Insomnia-on trazodone. Physical Exam Const alert, oriented x3 and no apparent distress Orientation / Consciousness: awake, oriented to person, oriented to place and or iented to time Nutritional Appearance: cachectic HEENT normocephalic Mouth: dry mucous membranes Eyes PERRL, EOMs intact bilaterally and conjunctivae normal Neck no lymphadenopathy Resp clear to auscultation bilaterally Resp Narrative: Tachypneic Auscultation: diminished lung sounds Cardio regular rate, regular rhythm and no murmurs Peripheral Pulses: pulses 2+ throughout GI normal to inspection, nondistended, normoactive bowel sounds, non-tender and non-distended Extremity normal to inspection Skin no rashes or lesions noted Lesions: no lesions Rashes: no rashes Trauma: no lacerations or abrasions Neuro CN's II-XII intact bilaterally, no focal motor deficits, no sensory deficits noted and deep tendon reflexes 2+ bilaterally Psych mental status grossly normal and affect normal Patient seen and examined prior to discharge. Physical assessment as noted above. Discharge to inpatient hospice unit. This patient was seen by AVA Conn under the supervision of Dr. Saucedo. Weight / BMI Weight Weight: 122 lb 12.76 oz Body Mass Index (BMI) 20.7 ABG / Lab / Microbiology Data Result Diagrams: 04/17/21 05:25 04/17/21 05:25 Laboratory: Laboratory Results - last 24 hr 04/14/21 21:40: Crossmatch See Detail 04/17/21 05:25: WBC 25.5 H, RBC 3.68 L, Hgb 10.2 L, Hct 31.6 L, MCV 85.9 D, MCH 27.7, MCHC 32.3 D, RDW Std Deviation 54.6 H, RDW Coeff of Yaneli 19.1 H, Plt Count 30 L*, Neut % (Auto) Not Reportable, Absolute Neuts (auto) 19.6 H, Absolute Lymphs (auto) 1.27, Neutrophils % (Manual) 74 H, Band Neutrophils % 3, Lymphocytes % (Manual) 5 L, Monocytes % (Manual) 9, Metamyelocytes % 3 H, Myelocytes % 3 H, Promyelocytes % 2 H, Blast Cells % 1 H*, Diff Path Review May foll, Platelet Estimate MOD DEC, RBC Morphology NORM C+C 04/17/21 05:25: Sodium 138, Potassium 3.5, Chloride 102, Carbon Dioxide 24.0, Anion Gap 12, BUN 20 H, Creatinine 0.85, Estim Creat Clear Calc 39.66, Est GFR (MDRD) Af Amer 82, Est GFR (MDRD) Non-Af 68, BUN/Creatinine Ratio 23.6 H, Glucose 91, Calcium 7.7 L Microbiology: Microbiology 04/15/21 04:25 Stool Enteric Bacteriology - Final 04/15/21 04:25 Stool C. difficile DNA Amplification - Final 04/16/21 04:25 Stool Stool Occult Blood ([facility]) - Final Occult Blood Positive 04/14/21 18:00 Urine Catheter - Catheter Urine Culture - Final Citrobacter freundii Meaningful Use Info Meaningful Use Diagnoses (Choose all that apply): None applicable Discharge Plan Admission Admit Date/Time: 04/14/21 19:24 Attending Provider: Tara Saucedo Primary Care Provider: Jose Grayson Consulting Providers: Rajiv Gonzalez ; Rocio Stack ; Ascencion Latham ; Christal Khan ; Jessie Schulz ; Ana Sultana ; Jacki Hassan PROCESS CONTROLS TECHNICIAN Discharge Orders/Prescriptions Prescriptions: New prednisone 10 mg Tablet 10 mg PO DAILYCM Qty: 0 RF: 0 ciprofloxacin HCl 500 mg Tablet 500 mg PO BID 4 Days Qty: 8 RF: 0 pantoprazole 40 mg Tablet,Delayed Release (Dr/Ec) 40 mg PO BID Qty: 0 RF: 0 haloperidol lactate 5 mg/mL Solution 0.5 mg IV Q6 Qty: 0 RF: 0 Continued amlodipine 5 mg tablet 5 tab PO DAILY RF: 0 levothyroxine 50 mcg tablet 50 mcg PO DAILY RF: 0 trazodone 50 MG tablet 75 mg PO QHS RF: 0 furosemide [Lasix] 20 mg Tablet 20 mg PO DAILY RF: 0 oxycodone 5 mg Tablet 5 mg PO Q6H PRN (Reason: pain (scale score 7-10)) 2 Days Qty: 10 RF: 0 promethazine 25 mg Tablet 25 mg PO Q6H PRN (Reason: Nausea) RF: 0 vitamins A,C,W-mxrk-klibpf 7,160 unit- 113 mg-100 unit Tablet 2 tab PO BID RF: 0 fluticasone propion-salmeterol 232-14 mcg/actuation aerosol powdr breath activated INHALATION RF: 0 Discontinued prednisone 20 mg tablet 20 mg PO DAILY RF: 0 Eliquis DVT-PE Treat 30D Start 5 mg (74 tabs) tablets,dose pack 5 mg PO BID RF: 0 Referrals / Follow Up: Jose Grayson MD [Primary Care Provider] - Disposition Disposition (needs filled in before D/C Order can be placed): Hospice in Medical Facility Documented by User: Dr. Tara Saucedo DO 04/17/21 13:12 Providers Date of Admission: 04/14/21 Reason For Visit: UTI, DEHYDRATION Medications at Discharge Home Medications trazodone 75 mg PO QHS 11/04/15 amlodipine 5 mg tablet 5 tab PO DAILY 02/15/20 levothyroxine 50 mcg tablet 50 mcg PO DAILY 02/15/20 furosemide [Lasix] 20 mg PO DAILY 03/14/21 oxycodone 5 mg PO Q6H PRN 2 Days #10 tab 03/18/21 promethazine 25 mg PO Q6H PRN 03/30/21 vitamins A,C,P-ydqe-jyingy 2 tab PO BID 03/30/21 fluticasone propion-salmeterol inh INHALATION 04/14/21 ciprofloxacin HCl 500 mg PO BID 4 Days #8 tab 04/17/21 haloperidol lactate 0.5 mg IV Q6 #0 ml 04/17/21 pantoprazole 40 mg PO BID #0 tab 04/17/21 prednisone 10 mg PO DAILYCM #0 tab 04/17/21 Hospital Course Summary of Care Provided Minutes Spent on Discharge: 42 Hospital Course: This patient was seen in conjunction with Sandrita Barriga NP. The following is representation my independent history and physical examination. Please see the addendum below for additional notations regarding care. Mrs. Admas is an 81-year-old white female who presented to the emergency department at [facility] on 04/14/2021 with a chief complaint of generalized weakness. She reports that she had been having increased weakness over the last 3 to 4 days she is also been having nausea and vomiting with the inability to keep food down. She is also been having diarrhea. 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 In the emergency department she was hemodynamically stable but noted to have an elevated lactic acid level of 7.9. Which dropped precipitously to 3.9 after just 1500 cc of fluid, a white count of 45,000 and her UA was consistent with urinary tract infection. She was also noted to have an acute anemia and has been on anticoagulation for splenic infarcts. She was started on antibiotics and her anticoagulation was held temporarily. We consulted her ophthalmic nurse, Dr. 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 On the morning of 716 she was noted to have a Hemoccult positive stool and therefore her heparin drip was discontinued and general surgery consult was recommended for EGD but the patient deferred having any invasive procedures done. Her hemoglobin also dropped to 6.6. I suspect this was somewhat dilutional as with 2 unit packed red blood cells her hemoglobin improved to 10.2. Her urine culture grew out Citrobacter that was sensitive to the antibiotics we have her on and she was treated for uncomplicated UTI prior to discharge. Her last CBC with differential shows a continued elevated white count with a count of 25.5, and a platelet count of 30,000. She interestingly had blast cells on her differential as well. With her worsening labs, decreased functional status, blood count issues a family meeting was held and the patient's daughter discussed the case with Dr. Gonzalez and they elected to opt for comfort care measures with the discharge to inpatient hospice. Differential diagnosis: Severe sepsis Citrobacter urinary tract infection Lactic acidosis Acute anemia Acute thrombocytopenia Leukocytosis GI bleed PRASHANT Severe malnutrition Hypersplenism History of splenic infarct Poor p.o. 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 secondary to asthma and radiation fibrosis Hypertension Hypothyroidism Insomnia Physical Exam Const alert, oriented x3 and no apparent distress Constitutional Narrative: Thin elderly white female lying in bed, appears more comfortable today continues to have intermittent tachypnea and some respiratory distress General Appearance: cooperative, well kempt and well developed Orientation / Consciousness: awake, oriented to person, oriented to place and oriented to time Exam Limitations: no limitations Nutritional Appearance: cachectic HEENT normocephalic and head/scalp atraumatic Eyes PERRL, EOMs intact bilaterally and no scleral icterus Eyes Narrative: Pale conjunctiva Neck full ROM, no lymphadenopathy and supple Neck Narrative: Trachea midline, no JVD Chest inspection of chest normal Resp normal air movement, no retractions, no use of accessory muscles and clear to auscultation bilaterally Resp Narrative: Mild tachypnea Auscultation: crackles and diminished lung sounds Cardio regular rate, regular rhythm, S1 normal heart sound, S2 normal heart sound, no murmurs, no rub, no gallops, no clicks and no JVD Peripheral Pulses: pulses 2+ throughout GI normal to inspection, nondistended, normoactive bowel sounds, soft to palpation, non-tender and non-distended Extremity normal to inspection, full ROM, normal capillary refill and no clubbing, cyanosis or edema Skin no rashes or lesions noted, no wounds, skin turgor normal, no jaundice, no petechiae and no mottling Skin Narrative: Pale skin, scattered ecchymosis Lesions: no lesions Rashes: no rashes Trauma: no lacerations or abrasions Neuro oriented x3, moves all extremities, no focal motor deficits and deep tendon reflexes 2+ bilaterally Neuro Narrative: Marked generalized weakness noted Sensorium / Orientation: awake and alert Speech: speech normal Psych mental status grossly normal, thought process normal and cooperative Psych Narrative: Affect is flat and mood is depressed Mood & Affect: depressed ABG / Lab / Microbiology Data Result Diagrams: 04/17/21 05:25 04/17/21 05:25 Discharge Plan Admission Admit Date/Time: 04/14/21 19:24 Attending Provider: Tara Saucedo Primary Care Provider: Jose Grayson Consulting Providers: Rajiv Gonzalez ; Rocio Stack ; Ascencion Latham ; Christal Khan ; Jessie Schulz ; Ana Sultana ; Jacki Hassan PROCESS CONTROLS TECHNICIAN Discharge Orders/Prescriptions Prescriptions: New prednisone 10 mg Tablet 10 mg PO DAILYCM Qty: 0 RF: 0 ciprofloxacin HCl 500 mg Tablet 500 mg PO BID 4 Days Qty: 8 RF: 0 pantoprazole 40 mg Tablet,Delayed Release (Dr/Ec) 40 mg PO BID Qty: 0 RF: 0 haloperidol lactate 5 mg/mL Solution 0.5 mg IV Q6 Qty: 0 RF: 0 Continued amlodipine 5 mg tablet 5 tab PO DAILY RF: 0 levothyroxine 50 mcg tablet 50 mcg PO DAILY RF: 0 trazodone 50 MG tablet 75 mg PO QHS RF: 0 furosemide [Lasix] 20 mg Tablet 20 mg PO DAILY RF: 0 oxycodone 5 mg Tablet 5 mg PO Q6H PRN (Reason: pain (scale score 7-10)) 2 Days Qty: 10 RF: 0 promethazine 25 mg Tablet 25 mg PO Q6H PRN (Reason: Nausea) RF: 0 vitamins A,C,G-fmws-aotxhz 7,160 unit- 113 mg-100 unit Tablet 2 tab PO BID RF: 0 fluticasone propion-salmeterol 232-14 mcg/actuation aerosol powdr breath activated INHALATION RF: 0 Discontinued prednisone 20 mg tablet 20 mg PO DAILY RF: 0 Eliquis DVT-PE Treat 30D Start 5 mg (74 tabs) tablets,dose pack 5 mg PO BID RF: 0 Referrals / Follow Up: Jose Grayson MD [Primary Care Provider] - Disposition Disposition (needs filled in before D/C Order can be placed): Hospice in Medical Facility Charges/Coding Visit Charges Inpatient E&M: 17052 Disch Hosp
--- NOTE | 2021-04-17 17:07 | CASEMGMT ---
SW Note Referral Source: MD Referral Reason: Hospice SW was advised by MD that patient and family wanted inpatient unit at Hospice. [facility] faxed referral packet to [facility]. [facility] updated film crew member that patient was ready for transfer and staff arranged for transport for patient. SW remains available if further needs arise. Essie GARCIA
[2021-04-19 13:08] LABS: Pathologist Review Reviewed
== END 2021-04-17 14:20 | disposition hospice, inpatient (51) | DRG 871 ==
LOC: ED 19:07 → PCU 19:32
PROVIDERS: Nurse Practitioner Family; Admitting Provider Student in an Organized Health Care Education/Training Program; Emergency Provider Emergency Medicine; PCP Family Medicine; Referring Provider Student in an Organized Health Care Education/Training Program; Visit Provider Internal Medicine
DX: A41.9 Sepsis, unspecified organism (principal); E43 Unspecified severe protein-calorie malnutrition; C83.00 Small cell B-cell lymphoma, unspecified site; J96.11 Chronic respiratory failure with hypoxia; K92.2 Gastrointestinal hemorrhage, unspecified; N17.9 Acute kidney failure, unspecified; N39.0 Urinary tract infection, site not specified; J70.1 Chronic and other pulmonary manifestations due to radiation; D62 Acute posthemorrhagic anemia; Y84.2 Radiological procedure and radiotherapy as the cause of abnormal reaction of the patient, or of later complication, without mention of misadventure at the time of the procedure; R11.2 Nausea with vomiting, unspecified; I49.1 Atrial premature depolarization; B96.89 Other specified bacterial agents as the cause of diseases classified elsewhere; D73.1 Hypersplenism; D69.6 Thrombocytopenia, unspecified; D73.5 Infarction of spleen; R63.0 Anorexia; E03.9 Hypothyroidism, unspecified; E86.0 Dehydration; J44.9 Chronic obstructive pulmonary disease, unspecified; F41.9 Anxiety disorder, unspecified; G89.29 Other chronic pain; H91.93 Unspecified hearing loss, bilateral; I10 Essential (primary) hypertension; M19.90 Unspecified osteoarthritis, unspecified site; R65.20 Severe sepsis without septic shock; G47.00 Insomnia, unspecified; Z66 Do not resuscitate; Z79.01 Long term (current) use of anticoagulants; Z79.899 Other long term (current) drug therapy; Z99.81 Dependence on supplemental oxygen; Z68.20 Body mass index [BMI] 20.0-20.9, adult
CPT/HCPCS: 36415; 71045; 80048; 80053; 81001; 82274; 82728; 83540; 83605; 83690; 85025; 85610; 85730; 86850; 86900; 86901; 86920; 87040; 87077; 87086; 87088; 87186; 87426; 87493; 87506; 93005; 94640; 97162; 97802; 99251; 99285; J7030; J7040; P9016; P9040; A4216; G0463; J1940; J2405